=== PATIENT | female | born 1980 | race Caucasian/White ===

== ENCOUNTER 2017-05-29 16:38 | Inpatient (IN) | payer MEDICAID ==
[2017-05-29] MEDS ORDERED: Sodium Chloride 0.9% 1,000 ML IV ONE (17:10)
[2017-05-29 17:27] LABS: CHLORIDE 103 mmol/L (98-107); EOS % 0.7 % (0.0-4.0); HEMATOCRIT 15.4 % (34.0-47.0); LYMPH # 1.3 K/uL (1.0-4.3); LYMPH % 31.4 % (20.0-40.0); MEAN CELL VOLUME 100.5 fL (81.0-99.0); MEAN CORPUSCULAR HEMOGLOBIN 31.6 pg (27.0-31.0); MEAN CORPUSCULAR HGB CONC 31.4 g/dL (33.0-37.0); MEAN PLATELET VOLUME 9.3 fL (7.2-11.7); MONO # 0.6 K/uL (0.0-0.8); MONO % 13.7 % (0.0-10.0); NRBC % 0.1 % (0.0-2.0); POTASSIUM 3.2 mmol/L (3.6-5.2); RED CELL DISTRIBUTION WIDTH 22.4 % (11.5-14.5); SODIUM 139 mmol/L (132-148); WHITE BLOOD COUNT 4.1 K/uL (4.8-10.8)
[2017-05-29 17:29] LABS: BILIRUBIN,TOTAL 9.7 mg/dL (0.2-1.3); CARBON DIOXIDE 17 mmol/L (22-30); GFR AFRICAN-AMERICAN > 60
[2017-05-29 17:30] LABS: ALB/GLOB RATIO 0.5 (1.0-2.1); ALKALINE PHOSPHATASE 164 U/L (38-126); ALT/SGPT 42 U/L (9-52); AST/SGOT 83 U/L (14-36); CALCIUM 7.3 mg/dl (8.6-10.4); GLUCOSE,RANDOM 63 mg/dL (65-105); TOTAL PROTEIN 7.7 g/dL (6.3-8.3)
[2017-05-29 17:31] LABS: BLOOD UREA NITROGEN 2 mg/dL (7-17)
--- NOTE | 2017-05-29 17:54 | C.PDOC ---
History Of Present Illness 36 y/o female, with history of significant alcohol and tobacco use, sent to ED by [facility] (Dr. Ivory) today. Patient reports she was seen at PMD's office today with c/o leg swelling and yellowing of the eyes. Patient was sent in to ER for evaluation of jaundice. Denies abdominal pain, vaginal bleeding, blood in stool, blood in urine, hemoptysis, fever, chills, nausea, vomiting, or other associated symptoms. Time Seen by Provider: 05/29/17 16:52 Chief Complaint (Nursing): Lower Extremity Problem/Injury History Per: Patient History/Exam Limitations: no limitations Onset/Duration Of Symptoms: Days Current Symptoms Are (Timing): Still Present Recent travel outside of the [place]: No Past Medical History Reviewed: Historical Data, Nursing Documentation, Vital Signs Vital Signs: Last Vital Signs Temp 99.1 F 05/29/17 16:56 Pulse 118 H 05/29/17 16:56 Resp 16 05/29/17 16:56 BP 147/69 05/29/17 16:56 Pulse Ox 100 05/29/17 17:55 - Medical History PMH: Anemia - [facility] Procedures CLOSED ENDOSCOPIC BIOPSY OF LARGE INTESTINE (02/01/15) DETOXIFICATION SERVICES FOR SUBSTANCE ABUSE TREATMENT (08/24/16) GROUP [employer] AGENT FOR SUBSTANCE ABUSE TREATMENT, PSYCHOEDUCATION (08/24/16) PACKED CELL TRANSFUSION (02/01/15) TRANSFUSE NONAUT RED BLOOD CELLS IN PERIPH VEIN, PERC (05/02/16) Family History: States: Unknown Family Hx - Social History Hx Tobacco Use: Yes Hx Alcohol Use: Yes Hx Substance Use: No - Immunization History Hx Tetanus Toxoid Vaccination: No Hx Influenza Vaccination: No Hx Pneumococcal Vaccination: No Review Of Systems Except As Marked, All Systems Reviewed And Found Negative. Constitutional: Negative for: Fever, Chills Eyes: Positive for: Other (+jaundice) Cardiovascular: Positive for: Edema (bilateral lower extremities). Negative for : Chest Pain, Palpitations Respiratory: Negative for: Cough, Shortness of Breath, Hemoptysis, Wheezing Gastrointestinal: Negative for: Nausea, Vomiting, Abdominal Pain, Diarrhea, Hematemesis Genitourinary: Negative for: Hematuria Skin: Negative for: Rash Neurological: Negative for: Headache, Dizziness Physical Exam - Physical Exam Appears: Non-toxic, No Acute Distress Skin: Warm, Dry Head: Atraumatic, Normacephalic Eye(s): bilateral: PERRL, EOMI, Scleral Icterus Chest: Symmetrical Cardiovascular: Rhythm Regular (tachycardic), No Murmur Respiratory: Normal Breath Sounds, No Accessory Muscle Use, No Rales, No Rhonchi , No Wheezing Gastrointestinal/Abdominal: Soft, No Tenderness, No Guarding, No Rebound Back: Normal Inspection Extremity: Normal ROM, Pedal Edema (pitting, bilateral feet), No Calf Tenderness , Capillary Refill (< 2 sec.) Neurological/Psych: Oriented x3, Normal Speech, Normal Cognition ED Course And Treatment - Laboratory Results Result Diagrams: 05/29/17 17:14 05/29/17 17:14 O2 Sat by Pulse Oximetry: 100 (RA) Pulse Ox Interpretation: Normal Medical Decision Making Medical Decision Making: Plan: Type and screen, labs, fluids, reassess. 17:50 Hgb:4.8. Type and cross of 2 units PRBCS ordered. Patient consented. Discussed with PMD Dr. Ivory who reports anemia likely secondary to alcohol use. Agrees with plan of admission to med/sx Disposition - Disposition Disposition: HOSPITALIZED Disposition Time: 18:04 Condition: FAIR - Clinical Impression Clinical Impression: Anemia - Scribe Statement The provider has reviewed the documentation as recorded by the Danelle Vivas Provider Attestation: All medical record entries made by the Danelle were at my direction and personally dictated by me. I have reviewed the chart and agree that the record accurately reflects my personal performance of the history, physical exam, medical decision making, and the department course for this patient. I have also personally directed, reviewed, and agree with the discharge instructions and disposition.
[2017-05-29] MEDS ORDERED: Sodium Chloride 0.9% 1,000 ML ONE ×2 (18:00→19:34)
[2017-05-29 18:04] LABS: RBC URINE 9 /hpf (0-3); URINE BACTERIA MOD (<OCC); URINE BILIRUBIN 1+ (NEGATIVE); URINE BLOOD 1+ (NEGATIVE); URINE GLUCOSE (UA) 1+ mg/dL (Normal); URINE KETONE NEGATIVE (NEGATIVE); URINE LEUKOCYTE ESTERASE NEG Leu/uL (Negative); URINE PROTEIN NEGATIVE (NEGATIVE); WBC URINE 4 /hpf (0-5)
[2017-05-29 18:06] LABS: URINE COLOR YELLOW (YELLOW)
[2017-05-29] MEDS ORDERED: Potassium Chloride 20 mEq ER Tab PO STA (18:54)
[2017-05-29 19:02] LABS: INR 3.4
[2017-05-29] MEDS ORDERED: Potassium Chloride 20 mEq ER Tab PO ONE (19:28)
[2017-05-29] MEDS: Sodium Chloride 0.9% 1,000 ML IV SCH (19:55)
[2017-05-29 21:24] VITALS: RESP 20
--- NOTE | 2017-05-29 23:55 | CP.PCM.HP ---
History of Present Illness - History of Present Illness History of Present Illness: Chief complaint: leg swelling and weakness History present illness: 36 year-old female with h/o eoth and liver disease and anemia jaundice and withdrawl. Patient's mom who brought the patient was telling that she is drinking alcohol and at times she gets agitated and the patient came to the office for the evaluation of alcohol withdrawal. she recently in the hospital and did well and off etoh for few weeks but started to drink again she is drinking daily now c/o weakness no blood in stool no chest pain no palpitation. Past medical history: Liver disease, alcoholism, anemia, smoking Surgical history: None Personal history: Continues to drink alcohol. Denies any drugs, but smoking noted almost one pack per day Review of systems: Denies any headache, no visual symptoms, complaining of weakness, tiredness, chest tightness, sometimes shortness of breath, also complaining of some abdomen pain, constipation present, leg swelling also noted Family history: Father had heart disease, recently had a stent, mother is has anxiety, siblings 1 brother and one sister they are healthy, patient has 2 kids and they're healthy Social history: Patient is currently drinking alcohol almost to 2 cans of beer daily for 15 years, in the weekends she drinks even more, for the last 2 weeks that she's not drinking, she used to smoke, currently she smoking 2 cigarettes per day, 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 No urinary discomfort. Leg swelling noted. On examination: Patient is having conjunctival sclera icterus changes, anemia changes the looking conjunctiva, more face noted, bilateral pedal edema, abdominal swelling , abdominal wall swelling noted. Chest bilateral good air entry, CVS regular heart sound, 05/29/17 17:14 05/29/17 17:14 Assessment/recommendation: Assessment/condition: 35-year-old female now admitted with the severe anemia but no active bleeding noted at this time. coagulopathy present secondary to alcohol liver disease Low albumin secondary to liver disease. Patient will need a transfusion. Protonix. Alcoholic detoxification, psychotic evaluation, benzodiazepines. Patient's overall prognosis is poor. Spoke to the family in details. IV fluids with the vitamin thiamine and folate again patient was explained. We will watch DTs Present on Admission - Present on Admission Any Indicators Present on Admission: No History of DVT/PE: No History of Uncontrolled Diabetes: No Urinary Catheter: No Decubitus Ulcer Present: No Past Patient History - Infectious Disease Hx of Infectious Diseases: None - Past Medical History & Family History Past Medical History?: Yes - Past Social History Smoking Status: Light Smoker < 10 Cigarettes Daily - CARDIAC Hx Cardiac Disorders: No - PULMONARY Hx Respiratory Disorders: No - NEUROLOGICAL Hx Neurological Disorder: No - HEENT Hx HEENT Problems: No - RENAL Hx Chronic Kidney Disease: No - ENDOCRINE/METABOLIC Hx Endocrine Disorders: No - HEMATOLOGICAL/ONCOLOGICAL Hx Anemia: Yes Hx Cirrhosis: Yes - INTEGUMENTARY Hx Dermatological Problems: No Other/Comment: jaundice - MUSCULOSKELETAL/RHEUMATOLOGICAL Hx Falls: No - GASTROINTESTINAL Hx Gastrointestinal Disorders: No - GENITOURINARY/GYNECOLOGICAL Hx Genitourinary Disorders: No - PSYCHIATRIC Hx Substance Use: No - SURGICAL HISTORY Hx Surgeries: No - ANESTHESIA Hx Anesthesia: Yes Hx Anesthesia Reactions: No Hx Malignant Hyperthermia: No Has any member of the family had a problem w/ anesthesia?: No Meds Allergies/Adverse Reactions: Allergies Allergy/AdvReac Type Severity Reaction Status Date / Time No Known Allergies Allergy Verified 05/29/17 16:41 Results - Vital Signs Recent Vital Signs: Last Vital Signs Temp 98.6 F 05/29/17 22:30 Pulse 102 H 05/29/17 22:30 Resp 20 05/29/17 22:30 BP 130/75 05/29/17 22:30 Pulse Ox 100 05/29/17 22:30 - Labs Result Diagrams: 05/29/17 17:14 05/29/17 17:14 Labs: Laboratory Results - last 24 hr 05/29/17 18:34 Stool Occult Blood Negative
[2017-05-30] MEDS ORDERED: Thiamine 100 mg/ml Inj IV SCH (10:00)
[2017-05-30] MEDS: Pantoprazole 40 mg Susp UD PO SCH ×2 (10:57→17:00)
[2017-05-30 11:27] LABS: BASO % 0.8 % (0.0-2.0); EOS # 0.1 K/uL (0.0-0.7); EOS % 1.8 % (0.0-4.0); HEMATOCRIT 22.8 % (34.0-47.0); LYMPH % 28.7 % (20.0-40.0); MEAN CORPUSCULAR HEMOGLOBIN 31.2 pg (27.0-31.0); MEAN CORPUSCULAR HGB CONC 33.5 g/dL (33.0-37.0); MONO # 0.4 K/uL (0.0-0.8); MONO % 11.8 % (0.0-10.0); NRBC % 0.1 % (0.0-2.0); RED CELL DISTRIBUTION WIDTH 19.8 % (11.5-14.5); WHITE BLOOD COUNT 3.4 K/uL (4.8-10.8)
[2017-05-30 11:28] LABS: INR 3.6
[2017-05-30 11:31] LABS: CHLORIDE 104 mmol/L (98-107)
[2017-05-30 11:32] LABS: POTASSIUM 3.4 mmol/L (3.6-5.2); SODIUM 134 mmol/L (132-148)
[2017-05-30 11:34] LABS: ALB/GLOB RATIO 0.4 (1.0-2.1); ALKALINE PHOSPHATASE 124 U/L (38-126); ALT/SGPT 41 U/L (9-52); AST/SGOT 67 U/L (14-36); BILIRUBIN,TOTAL 9.9 mg/dL (0.2-1.3); BLOOD UREA NITROGEN 3 mg/dL (7-17); CARBON DIOXIDE 20 mmol/L (22-30); GFR AFRICAN-AMERICAN > 60; GLUCOSE,RANDOM 139 mg/dL (65-105); TOTAL PROTEIN 6.4 g/dL (6.3-8.3)
[2017-05-30 11:35] LABS: CALCIUM 6.7 mg/dl (8.6-10.4)
[2017-05-30] MEDS ORDERED: Iodixanol 320 MG/ML 100 ML BOTTLE IV ONE (12:51)
--- NOTE | 2017-05-30 13:11 | CP.PCM.CON ---
<Davina Lozano - Last Filed: 05/30/17 13:17> History of Present Illness - History of Present Illness History of Present Illness: GI Fellow PGY4 Consult Note This is a 36yF with a pmhx of alcohol abuse, cirrhosis, alcoholic hepatitis, anemia/pancytopenia requiring blood transfusion sent to the hospital by PCP for jaundice, anemia, and plan for detox. Pt has a significant hx of alcohol abuse, started drinking at age 15, reports drinking 2x24oz cans of beer every day with increased intake on weekends, denies hard liquor and last drink was two days ago. Pt has had prior admissions for detox but goes back to drinking as soon as she gets home. Pt also has received blood transfusion for her anemia with no active GI bleed. Pt had an Abdominal US 04/2016 showing cirrhosis but no mass lesions or hepatomegaly. Pt had EGD/Colonoscopy 2014: portal HTN, gastropaty, gastritis, hiatal hernia, no esophageal varies., sigmoid polyp, hemorrhoids. Pt denies any nausea, vomiting, hemetemesis, melena, hematochezia. Pt reports regular BM daily, denies any constipation. No hx of paracentesis or encephalopathy per the pt. ROS: A 12pt ROS was obtained and was negative except as above. PmHx: As stated in HPI PsHx: Denies FHx: Denies any cirrhosis or cancers SHx: Drinking alcohol everyday since the age of 15, 2x24oz cans of beer with increased intake on weekends, denies hard liquor, tobacco use since age 15 Past Patient History - Infectious Disease Hx of Infectious Diseases: None - Past Medical History & Family History Past Medical History?: Yes - Past Social History Smoking Status: Light Smoker < 10 Cigarettes Daily - CARDIAC Hx Cardiac Disorders: No - PULMONARY Hx Respiratory Disorders: No - NEUROLOGICAL Hx Neurological Disorder: No - HEENT Hx HEENT Problems: No - RENAL Hx Chronic Kidney Disease: No - ENDOCRINE/METABOLIC Hx Endocrine Disorders: No - HEMATOLOGICAL/ONCOLOGICAL Hx Anemia: Yes Hx Cirrhosis: Yes - INTEGUMENTARY Hx Dermatological Problems: No Other/Comment: jaundice - MUSCULOSKELETAL/RHEUMATOLOGICAL Hx Falls: No - GASTROINTESTINAL Hx Gastrointestinal Disorders: No - GENITOURINARY/GYNECOLOGICAL Hx Genitourinary Disorders: No - PSYCHIATRIC Hx Substance Use: No - SURGICAL HISTORY Hx Surgeries: No - ANESTHESIA Hx Anesthesia: Yes Hx Anesthesia Reactions: No Hx Malignant Hyperthermia: No Has any member of the family had a problem w/ anesthesia?: No Meds Allergies/Adverse Reactions: Allergies Allergy/AdvReac Type Severity Reaction Status Date / Time No Known Allergies Allergy Verified 05/29/17 16:41 - Medications Medications: Current Medications Chlordiazepoxide (Librium) 5 mg PO Q8 PRN PRN Reason: Anxiety Last Admin: 05/30/17 10:57 Dose: 5 mg Gabapentin (Neurontin) 100 mg PO TID [facility] Last Admin: 05/30/17 10:56 Dose: 100 mg Folic Acid 1 mg/ Sodium (Chloride) 100.2 mls @ 60 mls/hr IV DAILY [facility] Last Admin: 05/30/17 10:56 Dose: 60 mls/hr Sodium Chloride (Sodium Chloride 0.9%) 1,000 mls @ 50 mls/hr IV .Q20H [facility] Last Admin: 05/29/17 19:55 Dose: 50 mls/hr Lactulose (Enulose) 20 gm PO BID [facility] Last Admin: 05/30/17 10:57 Dose: 20 gm Pantoprazole Sodium (Protonix Susp) 40 mg PO 0600,1600 [facility] Last Admin: 05/30/17 10:57 Dose: 40 mg Phytonadione (Vitamin K Tab) 10 mg PO DAILY [facility] Stop: 06/01/17 10:01 Thiamine HCl (Vitamin B1 Inj) 100 mg IV DAILY [facility] Last Admin: 05/30/17 12:00 Dose: 100 mg Physical Exam - Constitutional Appears: No Acute Distress, Unkempt, Older Than Stated Age - Head Exam Head Exam: ATRAUMATIC, NORMAL INSPECTION, NORMOCEPHALIC - Eye Exam Eye Exam: EOMI, PERRL, Scleral icterus Pupil Exam: PERRL - ENT Exam ENT Exam: Mucous Membranes Moist, Normal Exam - Neck Exam Neck exam: Positive for: Normal Inspection - Respiratory Exam Respiratory Exam: Clear to Auscultation Bilateral, NORMAL BREATHING PATTERN - Cardiovascular Exam Cardiovascular Exam: RRR, +S1, +S2 - GI/Abdominal Exam GI & Abdominal Exam: Normal Bowel Sounds, Soft. absent: Distended, Organomegaly , Tenderness - Rectal Exam Rectal Exam: Deferred - Extremities Exam Extremities exam: Positive for: full ROM, normal inspection. Negative for: joint swelling, pedal edema - Back Exam Back exam: FULL ROM, NORMAL INSPECTION - Neurological Exam Neurological exam: Alert, Oriented x3 Additional comments: Slow mentation and response to questions - Psychiatric Exam Psychiatric exam: Normal Affect, Normal Mood Additional comments: Poor insight into condition - Skin Skin Exam: Dry, Intact, Warm Additional comments: Jaundice Results - Vital Signs Recent Vital Signs: Last Vital Signs Temp 98 F 05/30/17 08:51 Pulse 98 H 05/30/17 08:51 Resp 20 05/30/17 08:51 BP 156/74 H 05/30/17 08:51 Pulse Ox 100 05/30/17 08:51 - Labs Result Diagrams: 05/30/17 11:11 05/30/17 11:11 Labs: Laboratory Results - last 24 hr 05/29/17 05/30/17 05/30/17 18:34 11:11 11:11 WBC 3.4 L RBC 2.45 L Hgb 7.6 L D Hct 22.8 L MCV 93.0 D MCH 31.2 H MCHC 33.5 RDW 19.8 H Plt Count 70 L MPV 9.0 Neut % (Auto) 56.9 Lymph % (Auto) 28.7 [place] % (Auto) 11.8 H Eos % (Auto) 1.8 Baso % (Auto) 0.8 Neut # 1.9 Lymph # 1.0 [place] # 0.4 Eos # 0.1 Baso # 0.0 PT 42.8 H* INR 3.6 APTT 71 H D Sodium Potassium Chloride Carbon Dioxide Anion Gap BUN Creatinine Est GFR ( Amer) Est GFR (Non-Af Amer) Random Glucose Calcium Total Bilirubin AST ALT Alkaline Phosphatase Total Protein Albumin Globulin Albumin/Globulin Ratio Stool Occult Blood Negative 05/30/17 11:11 WBC RBC Hgb Hct MCV MCH MCHC RDW Plt Count MPV Neut % (Auto) Lymph % (Auto) [place] % (Auto) Eos % (Auto) Baso % (Auto) Neut # Lymph # [place] # Eos # Baso # PT INR APTT Sodium 134 Potassium 3.4 L Chloride 104 Carbon Dioxide 20 L Anion Gap 13 BUN 3 L Creatinine 0.4 L Est GFR ( Amer) > 60 Est GFR (Non-Af Amer) > 60 Random Glucose 139 H Calcium 6.7 L Total Bilirubin 9.9 H AST 67 H ALT 41 Alkaline Phosphatase 124 Total Protein 6.4 Albumin 1.8 L D Globulin 4.6 H Albumin/Globulin Ratio 0.4 L Stool Occult Blood Assessment & Plan - Assessment and Plan (Free Text) Assessment: This is a 36y F with hx of alcohol abuse pw jaundice, anemia, and detox. 1. Alcoholic Hepatitis- Discriminate Factor 136.7 2. Liver Cirrhosis- MELD 29 3. Anemia 4. Pancytopenia 5. Hepatic encephalopathy -Grade 1 6. Coagulopathy 7. Transaminitis/Hyperbilirubinemia 8. Alcohol Abuse Plan: -Pt with alcoholic hepatitis with elevated DF of 136.7, case discussed with Hepatology Fellow at [facility] and need for transfer to transplant center with increased mortality, risk of liver failure, and possible treatment with prednisolone and participate in a new Trial at the hospital. Pt was accepted at [facility] under Dr. Membreno. -Will order triple phase CT scan liver protocol for further evaluation for any hepatomegaly, cirrhosis, ascites, mass lesions -Needs endoscopic evaluation EGD for variceal screening outpt -Pancytopenia likely bone marrow suppression from chronic alcohol abuse, no active bleeding -Cirrhosis MELD 29, likely from alcohol abuse, will order complete work up with autoimmune, hepatitis, and iron studies -Coagulopathy due to cirrhosis, do not recommend any vit K since pt is not actively bleeding -Mild HE-lactose bid and titrate for 2 BM daily -Discussed importance of alcohol cessation with pt, monitor for DTs -Case discussed with and the need for pt transfer to [facility]. <Tee Harris - Last Filed: 05/30/17 15:43> Meds - Medications Medications: Current Medications Chlordiazepoxide (Librium) 5 mg PO Q8 PRN PRN Reason: Anxiety Last Admin: 05/30/17 10:57 Dose: 5 mg Gabapentin (Neurontin) 100 mg PO TID [facility] Last Admin: 05/30/17 14:05 Dose: 100 mg Folic Acid 1 mg/ Sodium (Chloride) 100.2 mls @ 60 mls/hr IV DAILY [facility] Last Admin: 05/30/17 10:56 Dose: 60 mls/hr Sodium Chloride (Sodium Chloride 0.9%) 1,000 mls @ 50 mls/hr IV .Q20H [facility] Last Admin: 05/29/17 19:55 Dose: 50 mls/hr Lactulose (Enulose) 20 gm PO BID [facility] Last Admin: 05/30/17 10:57 Dose: 20 gm Pantoprazole Sodium (Protonix Susp) 40 mg PO 0600,1600 [facility] Last Admin: 05/30/17 10:57 Dose: 40 mg Phytonadione (Vitamin K Tab) 10 mg PO DAILY [facility] Stop: 06/01/17 10:01 Thiamine HCl (Vitamin B1 Inj) 100 mg IV DAILY [facility] Last Admin: 05/30/17 12:00 Dose: 100 mg Results - Vital Signs Recent Vital Signs: Last Vital Signs Temp 98 F 05/30/17 08:51 Pulse 98 H 05/30/17 08:51 Resp 20 05/30/17 08:51 BP 156/74 H 05/30/17 08:51 Pulse Ox 100 05/30/17 08:51 - Labs Result Diagrams: 05/30/17 11:11 05/30/17 11:11 Labs: Laboratory Results - last 24 hr 05/29/17 05/30/17 05/30/17 18:34 11:11 11:11 WBC 3.4 L RBC 2.45 L Hgb 7.6 L D Hct 22.8 L MCV 93.0 D MCH 31.2 H MCHC 33.5 RDW 19.8 H Plt Count 70 L MPV 9.0 Neut % (Auto) 56.9 Lymph % (Auto) 28.7 [place] % (Auto) 11.8 H Eos % (Auto) 1.8 Baso % (Auto) 0.8 Neut # 1.9 Lymph # 1.0 [place] # 0.4 Eos # 0.1 Baso # 0.0 PT 42.8 H* INR 3.6 APTT 71 H D Sodium Potassium Chloride Carbon Dioxide Anion Gap BUN Creatinine Est GFR ( Amer) Est GFR (Non-Af Amer) Random Glucose Calcium Total Bilirubin Direct Bilirubin AST ALT Alkaline Phosphatase Total Protein Albumin Globulin Albumin/Globulin Ratio Stool Occult Blood Negative IgM 05/30/17 05/30/17 05/30/17 11:11 14:29 14:29 WBC RBC Hgb Hct MCV MCH MCHC RDW Plt Count MPV Neut % (Auto) Lymph % (Auto) [place] % (Auto) Eos % (Auto) Baso % (Auto) Neut # Lymph # [place] # Eos # Baso # PT INR APTT Sodium 134 Potassium 3.4 L Chloride 104 Carbon Dioxide 20 L Anion Gap 13 BUN 3 L Creatinine 0.4 L Est GFR ( Amer) > 60 Est GFR (Non-Af Amer) > 60 Random Glucose 139 H Calcium 6.7 L Total Bilirubin 9.9 H 10.9 H Direct Bilirubin 4.5 H AST 67 H ALT 41 Alkaline Phosphatase 124 Total Protein 6.4 Albumin 1.8 L D Globulin 4.6 H Albumin/Globulin Ratio 0.4 L Stool Occult Blood IgM 192.3 Attending/Attestation - Attestation I have personally seen and examined this patient.: Yes I have fully participated in the care of the patient.: Yes I have reviewed all pertinent clinical information: Yes Notes (Text): 05/30/17 15:39 36 year old female with history of alcohol abuse admitted with jaundice 1. Alcoholic Hepatitis 2. Anemia Plan: -considering markedly elevated Madd[place] / MELD score, high risk of mortality short term, as well as young age of the patient, would recommend evaluation at transplant center, for consideration of trials or possibly transplant -await transfer to [facility] -diet as tolerated in the meantime -would recommend triple phase CT in the meantime, although wouldn't hold transfer for this -strict etoh cessation -start lactulose for G1 encephalopathy -no need to correct INR in the absence of bleeding -recommend transfusion for severe anemia -will follow
--- NOTE | 2017-05-30 13:14 | PCM.PSYCH ---
Initial Psychiatric Evaluation - Initial Psychiatric Evaluation Type of Admission: Voluntary Legal Status: Capacity Chief Complaint (in patient's own words): I was drinking History of Present Illness and Precipitating Events: Patient is a 36 year old, , unemployed female with a history of alcohol use disorder admitted for treatment of her alcohol use, cirrhosis and alcoholic hepatitis. Patient appears slightly jaundiced and fatigued. She denies suicidal ideases, hallucinations and voices. Patient started drinking at the age of 15 years and drinks two 24oz. bottles of beer daily. She reports that the only time she was sober was when she was . Patient smokes 4-5 cigarettes daily and requests a patch. Patient reports poor sleep, getting 2-3 hours each night. Patient reports a good appetite. Psych hx: hospitalized last year at [facility] for detox in 2016 and was sober for 3 weeks after before relapsing. Patient doesn't have a psychiatrist outside the hospital. Family psych hx: denies psychiatric issues or drug use Medical hx: anemia, cirrhosis, alcoholic hepatitis Social hx: , has two children (ages 13 and 80 years old), never has been employed and lives alone. Patient denies traumatic life events and denies legal issues. Current Medications: Active Medications Generic Name Dose Route Start Last Admin Trade Name Freq PRN Reason Stop Dose Admin Chlordiazepoxide 5 mg 05/29/17 19:03 05/30/17 10:57 Librium PO 5 mg Q8 PRN Administration Anxiety Gabapentin 100 mg 05/30/17 10:00 05/30/17 10:56 Neurontin PO 100 mg TID [facility] Administration Folic Acid 1 mg/ Sodium 100.2 mls @ 60 mls/hr 05/30/17 10:00 05/30/17 10:56 Chloride IV 60 mls/hr DAILY [facility] Administration Sodium Chloride 1,000 mls @ 50 mls/hr 05/29/17 19:30 05/29/17 19:55 Sodium Chloride 0.9% IV 50 mls/hr .Q20H [facility] Administration Lactulose 20 gm 05/30/17 10:00 05/30/17 10:57 Enulose PO 20 gm BID [facility] Administration Pantoprazole Sodium 40 mg 05/30/17 06:00 05/30/17 10:57 Protonix Susp PO 40 mg 0600,1600 [facility] Administration Phytonadione 10 mg 05/30/17 23:53 Vitamin K Tab PO 06/01/17 10:01 DAILY [facility] Thiamine HCl 100 mg 05/30/17 10:00 05/30/17 12:00 Vitamin B1 Inj IV 100 mg DAILY [facility] Administration Past Psychiatric History - Past Psychiatric History Previous Treatment History: None Pertinent Medical Hx (Current Medical&Sleep Prob, Allergies): Allergies Allergy/AdvReac Type Severity Reaction Status Date / Time No Known Allergies Allergy Verified 05/29/17 16:41 Gabapentin [Neurontin] 100 mg PO TID #0 cap 05/09/16 Mirtazapine [Remeron] 15 mg PO HS #0 tab 05/09/16 Pantoprazole [Protonix EC Tab] 40 mg PO Q12H #0 ect 05/09/16 Nicotine [Nicoderm Cq] 1 each TD DAILY #30 [id number] 09/05/16 Review of Systems - Review of Systems All systems: reviewed and no additional remarkable complaints except - Psychiatric Psychiatric: As Per HPI, Abnormal Sleep Pattern, Anxiety, Behavioral Changes, Irritability Mental Status Examination - Personal Presentation Personal Presentation: Looks stated age - Affect Affect: Constricted - Motor Activity Motor Activity: Calm - Reliability in Providing Information Reliability in Providing Information: Good - Speech Speech: Organized - Mood Mood: Anxious - Formal Thought Process Formal Thought Process: No Impairment - Obsessions/Compulsions Obsessions: No Compulsions: No - Cognitive Functions Orientation: Person, Place, Situation, Time Sensorium: Alert Attention/Concentration: Attentive Abstract Thinking: [place] Estimate of Intelligence: Below average Judgement: Imparied, as evidence by: Poor judgement, Imparied, as evidence by: Lack of insight into illness - Risk Risk: Withdrawal, Diminished functioning - Strength & Assets Inventory Strength & Assets Inventory: Life experience - Limitations Limitations: Living alone DSM 5 DX - DSM 5 DSM 5 Diagnosis: Alcohol use disorder severe Alcohol Withdrawal - Recommended/Plan of Treatment Treatment Recommendations and Plan of Treatment: Alcohol use disorder severe CBT Psychoeducation Supportive therapy, individual therapy Use OK for abstinence Alcohol withdrawal uncomplicated CBT Psychoeducation Supportive therapy, individual therapy Librium when necessary Folic acid/thiamine/multivitamin Projected ELOS: 4-6 days - Smoking Cessation Smoking Cessation Initiated: No
--- NOTE | 2017-05-30 14:11 | CP.PCM.PN ---
Subjective - Date & Time of Evaluation Date of Evaluation: 05/30/17 Time of Evaluation: 14:11 - Subjective Subjective: PT SEEN AND EVAL'D BY GI TEAM THIS MORNING. PER DR. ANTONIO, ARRANGEMENTS FOR TRANSFER TO [facility] FOR FURTHER TESTS AND TX HAVE BEEN MADE. DR. STEPHENS IS THE APPECPTING MD. DR. LALA AWARE OF PLAN AND IN AGREEMENT. PT SIGNED EMTALA WITH INSURANCE CLAIMS SPECIALIST AND UNDERSTANDS RISKS VS BENEFITS OF TRANSFER. [facility] RECOMMENDED 2/ 2 RISK OF DT'S, SEIZURE, HYPERTENSIVE CRISIS 2/2 ETOH WITHDRAWALS. [facility] TO NOTIFY NURSING STAFF ONCE BED IS AVAILABLE FOR THE PT. IF PT LEAVES AFTER INSURANCE CLAIMS SPECIALIST SHIFT AND IF DR. LALA UNAVAILBLE, [facility] MARTIN CAN COMPLETE THE D/C PORTION OF THE TRANSFER FORM. WILL F/U IN THE AM IF THE PT IS STILL HERE. NO FURTHER ORDERS. Objective - Vital Signs/Intake and Output Vital Signs (last 24 hours): Temp Pulse Resp BP Pulse Ox 98 F 98 H 20 156/74 H 100 05/30/17 08:51 05/30/17 08:51 05/30/17 08:51 05/30/17 08:51 05/30/17 08:51 - Medications Medications: Current Medications Chlordiazepoxide (Librium) 5 mg PO Q8 PRN PRN Reason: Anxiety Last Admin: 05/30/17 10:57 Dose: 5 mg Gabapentin (Neurontin) 100 mg PO TID [facility] Last Admin: 05/30/17 14:05 Dose: 100 mg Folic Acid 1 mg/ Sodium (Chloride) 100.2 mls @ 60 mls/hr IV DAILY [facility] Last Admin: 05/30/17 10:56 Dose: 60 mls/hr Sodium Chloride (Sodium Chloride 0.9%) 1,000 mls @ 50 mls/hr IV .Q20H [facility] Last Admin: 05/29/17 19:55 Dose: 50 mls/hr Lactulose (Enulose) 20 gm PO BID [facility] Last Admin: 05/30/17 10:57 Dose: 20 gm Pantoprazole Sodium (Protonix Susp) 40 mg PO 0600,1600 [facility] Last Admin: 05/30/17 10:57 Dose: 40 mg Phytonadione (Vitamin K Tab) 10 mg PO DAILY [facility] Stop: 06/01/17 10:01 Thiamine HCl (Vitamin B1 Inj) 100 mg IV DAILY [facility] Last Admin: 05/30/17 12:00 Dose: 100 mg - Labs Labs: 05/30/17 11:11 05/30/17 11:11 PT 42.8 SECONDS (9.7-12.2) H* 05/30/17 11:11 INR 3.6 05/30/17 11:11 APTT 71 SECONDS (21-34) H D 05/30/17 11:11
--- NOTE | 2017-05-30 14:51 | CT ---
Liver protocol triple phase CT Indication: Cirrhosis Technique: Contiguous axial images of the abdomen without & with IV contrast utilizing liver protocol. Coronal and Sagittal reformats generated and reviewed. This CT exam was performed using 1 or more of the falling dose reduction techniques: Automated exposure control, adjustment of the MAA and/or kV according to patient size, and/or use of iterative reconstruction technique. Contrast: 100 mL Visipaque. Oral contrast was not administered. Radiation dose: Total exam DLP = 664.56 MGy-cm. Comparison: Abdominal ultrasound performed 05/03/16 Findings: Small bilateral pleural effusions and associated consolidations. No visible pneumothorax. Small hiatal hernia/ distal esophageal wall thickening. Nodular hepatic contour. Heterogeneous hepatic parenchyma. No focal hepatic mass identified. Splenomegaly. Gallbladder wall thickening/edema. No calcified gallstones evident. The kidneys, pancreas, and adrenal glands appear unremarkable. Extensive large varices including retroperitoneal varices which extend into the pelvis. The stomach is nondistended. The included upper abdominal bowel loops appear within normal limits of caliber without evidence of intestinal obstruction. There is no definite free air. No acute osseous abnormality is detected. Impression: Small bilateral pleural effusions and associated consolidations. Small hiatal hernia/distal esophageal wall thickening. Nodular hepatic contour and heterogeneous hepatic parenchyma consistent with cirrhosis. No focal hepatic mass identified. Splenomegaly. Gallbladder wall thickening/edema. No calcified gallstones evident. Correlate clinically for possibility of cholecystitis. Right upper quadrant ultrasound may be considered if indicated. Extensive large varices including retroperitoneal varices which extend into the pelvis.
[2017-05-30 15:21] LABS: BILIRUBIN,DIRECT 4.5 mg/dL (0.0-0.4); BILIRUBIN,TOTAL 10.9 mg/dL (0.2-1.3)
[2017-05-30 15:33] LABS: IMMUNOGLOBULIN M 192.3 mg/dL (40.0-230.0)
[2017-05-30 15:53] LABS: IMMUNOGLOBULIN A 1256.4 mg/dL (70.0-400.0)
[2017-05-30 15:58] LABS: IMMUNOGLOBULIN G 2789.9 mg/dL (700.0-1600.0)
[2017-05-30] MEDS: Sodium Chloride 0.9% 1,000 ML IV SCH ×2 (16:29→18:28)
[2017-05-31] MEDS: Pantoprazole 40 mg Susp UD PO SCH ×2 (05:48→16:00)
--- NOTE | 2017-05-31 06:47 | CP.PCM.PN ---
Subjective - Date & Time of Evaluation Date of Evaluation: 05/30/17 Time of Evaluation: 06:47 - Subjective Subjective: This is a blood transfusion. Currently doing well. Leg swelling noted. Tremor noted. Vital signs stable. Chest good air entry bilaterally regular heart sound nontender abdomen Assessment and a condition: 36-year-old female with history of alcoholic hepatitis, or colic liver disease and the possible liver cirrhosis anemia and GA bleed. Currently doing okay. Monitor the hemoglobin. GI consult and will follow the patient Objective - Vital Signs/Intake and Output Vital Signs (last 24 hours): Temp Pulse Resp BP Pulse Ox 99.3 F 110 H 20 129/69 98 05/31/17 00:02 05/31/17 00:02 05/31/17 00:02 05/31/17 00:02 05/31/17 00:02 Intake and Output: 05/30/17 05/31/17 18:59 06:59 Intake Total 700 Balance 700 - Medications Medications: Current Medications Chlordiazepoxide (Librium) 5 mg PO Q8 PRN PRN Reason: Anxiety Last Admin: 05/31/17 05:48 Dose: 5 mg Folic Acid (Folic Acid) 1 mg PO DAILY [facility] Gabapentin (Neurontin) 100 mg PO TID [facility] Last Admin: 05/30/17 17:05 Dose: 100 mg Folic Acid 1 mg/ Sodium (Chloride) 100.2 mls @ 60 mls/hr IV DAILY [facility] Last Admin: 05/30/17 10:56 Dose: 60 mls/hr Sodium Chloride (Sodium Chloride 0.9%) 1,000 mls @ 50 mls/hr IV .Q20H [facility] Last Admin: 05/30/17 18:28 Dose: 50 mls/hr Lactulose (Enulose) 20 gm PO BID [facility] Last Admin: 05/30/17 17:05 Dose: 20 gm Multivitamins (Hexavitamin) 1 tab PO DAILY [facility] Pantoprazole Sodium (Protonix Susp) 40 mg PO 0600,1600 [facility] Last Admin: 05/31/17 05:48 Dose: 40 mg Phytonadione (Vitamin K Tab) 10 mg PO DAILY [facility] Stop: 06/01/17 10:01 Last Admin: 05/31/17 00:22 Dose: 10 mg Thiamine HCl (Vitamin B1 Tab) 100 mg PO DAILY [facility] - Labs Labs: 05/30/17 11:11 05/30/17 11:11 PT 42.8 SECONDS (9.7-12.2) H* 05/30/17 11:11 INR 3.6 05/30/17 11:11 APTT 71 SECONDS (21-34) H D 05/30/17 11:11
[2017-05-31 08:46] LABS: HEMATOCRIT 22.8 % (34.0-47.0); MEAN CELL VOLUME 93.6 fL (81.0-99.0); MEAN CORPUSCULAR HEMOGLOBIN 31.4 pg (27.0-31.0); MEAN CORPUSCULAR HGB CONC 33.6 g/dL (33.0-37.0); MEAN PLATELET VOLUME 8.4 fL (7.2-11.7); RED CELL DISTRIBUTION WIDTH 20.9 % (11.5-14.5); WHITE BLOOD COUNT 4.6 K/uL (4.8-10.8)
[2017-05-31 08:55] LABS: CHLORIDE 104 mmol/L (98-107); SODIUM 137 mmol/L (132-148)
[2017-05-31 08:57] LABS: ALB/GLOB RATIO 0.4 (1.0-2.1); AST/SGOT 56 U/L (14-36); BILIRUBIN,DIRECT 3.3 mg/dL (0.0-0.4); BILIRUBIN,TOTAL 7.4 mg/dL (0.2-1.3); CARBON DIOXIDE 22 mmol/L (22-30); GFR AFRICAN-AMERICAN > 60; TOTAL PROTEIN 6.2 g/dL (6.3-8.3)
[2017-05-31 08:58] LABS: ALKALINE PHOSPHATASE 153 U/L (38-126); ALT/SGPT 38 U/L (9-52); CALCIUM 6.6 mg/dl (8.6-10.4); GLUCOSE,RANDOM 109 mg/dL (65-105)
[2017-05-31 08:59] LABS: BLOOD UREA NITROGEN 2 mg/dL (7-17)
[2017-05-31] MEDS: Multiple Vitamins Tab PO SCH (09:45)
[2017-05-31 11:53] LABS: BASO # 0.1 K/uL (0.0-0.2); BASO % 1.5 % (0.0-2.0); EOS # 0.1 K/uL (0.0-0.7); EOS % 1.9 % (0.0-4.0); HEMATOCRIT 22.3 % (34.0-47.0); LYMPH # 1.3 K/uL (1.0-4.3); LYMPH % 29.7 % (20.0-40.0); MEAN CELL VOLUME 92.7 fL (81.0-99.0); MEAN CORPUSCULAR HEMOGLOBIN 31.2 pg (27.0-31.0); MEAN CORPUSCULAR HGB CONC 33.6 g/dL (33.0-37.0); MEAN PLATELET VOLUME 8.2 fL (7.2-11.7); MONO # 0.6 K/uL (0.0-0.8); MONO % 12.4 % (0.0-10.0); NRBC % 0.1 % (0.0-2.0); RED CELL DISTRIBUTION WIDTH 20.3 % (11.5-14.5); WHITE BLOOD COUNT 4.5 K/uL (4.8-10.8)
--- NOTE | 2017-05-31 12:58 | CP.PCM.PN ---
<Davina Lozano - Last Filed: 05/31/17 12:54> Subjective - Date & Time of Evaluation Date of Evaluation: 05/31/17 Time of Evaluation: 06:50 - Subjective Subjective: GI Fellow PGY4 Progress Note Pt seen and evaluated at beside, no acute events overnight, no active withdrawal. Pt reports feeling fine with no abdominal pain, nausea or vomiting. Pt eating food and had two BM yesterday after lactulose. Pt not transferred to [facility] due to bed availability. ROS: A 12pt ROS was obtained and was negative except as above. Objective - Vital Signs/Intake and Output Vital Signs (last 24 hours): Temp Pulse Resp BP Pulse Ox 99 F 129 H 20 151/91 H 98 05/31/17 08:36 05/31/17 08:36 05/31/17 08:36 05/31/17 08:36 05/31/17 08:36 Intake and Output: 05/31/17 05/31/17 06:59 18:59 Intake Total 700 Balance 700 - Medications Medications: Current Medications Chlordiazepoxide (Librium) 5 mg PO Q8 PRN PRN Reason: Anxiety Last Admin: 05/31/17 05:48 Dose: 5 mg Folic Acid (Folic Acid) 1 mg PO DAILY [facility] Last Admin: 05/31/17 09:45 Dose: 1 mg Gabapentin (Neurontin) 100 mg PO TID [facility] Last Admin: 05/31/17 09:45 Dose: 100 mg Folic Acid 1 mg/ Sodium (Chloride) 100.2 mls @ 60 mls/hr IV DAILY [facility] Last Admin: 05/30/17 10:56 Dose: 60 mls/hr Sodium Chloride (Sodium Chloride 0.9%) 1,000 mls @ 50 mls/hr IV .Q20H [facility] Last Admin: 05/30/17 18:28 Dose: 50 mls/hr Potassium Chloride (Potassium Chloride 20 Meq/100 Ml) 20 meq in 100 mls @ 50 mls/hr IVPB Q2 [facility] Stop: 05/31/17 19:59 Lactulose (Enulose) 20 gm PO BID [facility] Last Admin: 05/31/17 09:45 Dose: 20 gm Multivitamins (Hexavitamin) 1 tab PO DAILY [facility] Last Admin: 05/31/17 09:45 Dose: 1 tab Pantoprazole Sodium (Protonix Susp) 40 mg PO 0600,1600 [facility] Last Admin: 05/31/17 05:48 Dose: 40 mg Phytonadione (Vitamin K Tab) 10 mg PO DAILY [facility] Stop: 06/01/17 10:01 Last Admin: 05/31/17 09:46 Dose: 10 mg Thiamine HCl (Vitamin B1 Tab) 100 mg PO DAILY [facility] Last Admin: 05/31/17 09:45 Dose: 100 mg - Labs Labs: 05/31/17 11:45 05/31/17 08:32 PT 42.8 SECONDS (9.7-12.2) H* 05/30/17 11:11 INR 3.6 05/30/17 11:11 APTT 71 SECONDS (21-34) H D 05/30/17 11:11 - Constitutional Appears: No Acute Distress, Older Than Stated Age, Chronically Ill - Head Exam Head Exam: ATRAUMATIC, NORMAL INSPECTION, NORMOCEPHALIC - Eye Exam Eye Exam: EOMI, PERRL, Scleral icterus Pupil Exam: PERRL - ENT Exam ENT Exam: Mucous Membranes Moist, Normal Exam - Neck Exam Neck Exam: Full ROM, Normal Inspection - Respiratory Exam Respiratory Exam: Clear to Ausculation Bilateral, NORMAL BREATHING PATTERN - Cardiovascular Exam Cardiovascular Exam: RRR, +S1, +S2 - GI/Abdominal Exam GI & Abdominal Exam: Soft, Normal Bowel Sounds. absent: Distended, Tenderness, Organomegaly - Rectal Exam Rectal Exam: Deferred - Back Exam Back Exam: NORMAL INSPECTION - Neurological Exam Neurological Exam: Alert, Awake, Oriented x3 Additional comments: slow mentation and speech - Psychiatric Exam Psychiatric exam: Flat Affect, Normal Mood Additional comments: poor insight into medical condition - Skin Skin Exam: Dry, Intact, Warm Additional comments: jaundice Assessment and Plan - Assessment and Plan (Free Text) Assessment: This is a 36y F with hx of alcohol abuse pw jaundice, anemia, and detox. 1. Alcoholic Hepatitis- Discriminate Factor 150 2. Liver Cirrhosis- MELD 31 3. Anemia 4. Pancytopenia 5. Hepatic encephalopathy -Grade 1 6. Coagulopathy 7. Transaminitis/Hyperbilirubinemia 8. Alcohol Abuse Plan: Plan: -Pt with alcoholic hepatitis with elevated DF of 150 -Pt was accepted at [facility] under Dr. Membreno to receive treatment for alcoholic hepatitis-waiting for bed -If pt not transferred today will start treatment with prednisolone -Ordered blood and urine cultures to r/o infection -Triple phase CT scan liver protocol-signs of cirrhosis, large varices but no ascites or mass lesions -Needs endoscopic evaluation EGD for variceal screening outpt -Pancytopenia likely bone marrow suppression from chronic alcohol abuse, no active bleeding -Cirrhosis MELD 31, likely from alcohol abuse, will order complete work up with autoimmune and iron studies pending, hepatitis negative -Coagulopathy due to cirrhosis, do not recommend any vit K since pt is not actively bleeding -Mild HE-lactose bid and titrate for 2 BM daily -Discussed importance of alcohol cessation with pt, monitor for DTs -Case discussed with and the need for pt transfer to [facility] <Noe Rojas - Last Filed: 05/31/17 13:17> Objective - Vital Signs/Intake and Output Vital Signs (last 24 hours): Temp Pulse Resp BP Pulse Ox 99 F 129 H 20 151/91 H 98 05/31/17 08:36 05/31/17 08:36 05/31/17 08:36 05/31/17 08:36 05/31/17 08:36 Intake and Output: 05/31/17 05/31/17 06:59 18:59 Intake Total 700 Balance 700 - Medications Medications: Current Medications Chlordiazepoxide (Librium) 5 mg PO Q8 PRN PRN Reason: Anxiety Last Admin: 05/31/17 05:48 Dose: 5 mg Folic Acid (Folic Acid) 1 mg PO DAILY [facility] Last Admin: 05/31/17 09:45 Dose: 1 mg Gabapentin (Neurontin) 100 mg PO TID [facility] Last Admin: 05/31/17 13:07 Dose: 100 mg Sodium Chloride (Sodium Chloride 0.9%) 1,000 mls @ 50 mls/hr IV .Q20H [facility] Last Admin: 05/31/17 13:10 Dose: Not Given Potassium Chloride (Potassium Chloride 20 Meq/100 Ml) 20 meq in 100 mls @ 50 mls/hr IVPB Q2 [facility] Stop: 05/31/17 19:59 Last Admin: 05/31/17 13:08 Dose: 50 mls/hr Lactulose (Enulose) 20 gm PO BID [facility] Last Admin: 05/31/17 09:45 Dose: 20 gm Multivitamins (Hexavitamin) 1 tab PO DAILY [facility] Last Admin: 05/31/17 09:45 Dose: 1 tab Pantoprazole Sodium (Protonix Susp) 40 mg PO 0600,1600 [facility] Last Admin: 05/31/17 05:48 Dose: 40 mg Phytonadione (Vitamin K Tab) 10 mg PO DAILY [facility] Stop: 06/01/17 10:01 Last Admin: 05/31/17 09:46 Dose: 10 mg Thiamine HCl (Vitamin B1 Tab) 100 mg PO DAILY [facility] Last Admin: 05/31/17 09:45 Dose: 100 mg - Labs Labs: 05/31/17 11:45 05/31/17 08:32 PT 42.8 SECONDS (9.7-12.2) H* 05/30/17 11:11 INR 3.6 05/30/17 11:11 APTT 71 SECONDS (21-34) H D 05/30/17 11:11 Attending/Attestation - Attestation I have personally seen and examined this patient.: Yes I have fully participated in the care of the patient.: Yes I have reviewed all pertinent clinical information, including history, physical exam and plan: Yes Notes (Text): 05/31/17 13:12 I have seen and examined patient with GI fellow. No acute events overnight, she is seen resting in bed comfortably watching tv. She denies abdominal pain, nausea, vomiting, diarrhea, fever/chills. Tolerating PO diet without difficulty. She had a normal bowel movement yesterday, none thus far today. Review of vitals from today shows tachycardia and elevated BP. ETOH decompensated cirrhosis with MELD 31 Acute ETOH hepatitis with DF significantly elevated Anemia, pancytopenia Altered mental status, hepatic encephalopathy - Low sodium diet as tolerated - H/H stable, s/p PRBC transfusion, continue to monitor. No overt bleeding noted. - Given acute clinical presentation with high mortality risk, she would benefit from steroid therapy, however will hold off on therapy as this may disqualify her from involvement in clinical trials at [facility]. Awaiting bed availability for patient transfer. - LFTs stable, awaiting autoimmune panel - Check daily INR, creatinine - Continue with lactulose for prevention of HE - ETOH cessation counseling, overall patient prognosis is poor
[2017-05-31] MEDS: Sodium Chloride 0.9% 1,000 ML IV SCH (13:10)
--- NOTE | 2017-05-31 17:39 | CP.PCM.PN ---
Subjective - Date & Time of Evaluation Date of Evaluation: 05/31/17 Time of Evaluation: 17:38 - Subjective Subjective: PT STILL PENDING TRANSFER TO [facility]. REMAINS STABLE. SEEN BY GI TODAY. PER GI , IF PT IS NOT TRANSFERRED BY TOMORROW THEY MAY START THE PT ON A PREDNISONE REGIMEN. DISCUSSED WITH PT PLAN AND SHE IS IN AGREEMENT. AM LABS ALREADY ORDERED BY GI TEAM. NO FURTHER ORDERS AT THIS TIME. Objective - Vital Signs/Intake and Output Vital Signs (last 24 hours): Temp Pulse Resp BP Pulse Ox 98.6 F 104 H 20 149/87 100 05/31/17 15:00 05/31/17 15:00 05/31/17 15:00 05/31/17 15:00 05/31/17 15:00 Intake and Output: 05/31/17 05/31/17 06:59 18:59 Intake Total 700 1300 Balance 700 1300 - Medications Medications: Current Medications Chlordiazepoxide (Librium) 5 mg PO Q8 PRN PRN Reason: Anxiety Last Admin: 05/31/17 05:48 Dose: 5 mg Folic Acid (Folic Acid) 1 mg PO DAILY [facility] Last Admin: 05/31/17 09:45 Dose: 1 mg Gabapentin (Neurontin) 100 mg PO TID [facility] Last Admin: 05/31/17 17:09 Dose: 100 mg Sodium Chloride (Sodium Chloride 0.9%) 1,000 mls @ 50 mls/hr IV .Q20H [facility] Last Admin: 05/31/17 13:10 Dose: Not Given Potassium Chloride (Potassium Chloride 20 Meq/100 Ml) 20 meq in 100 mls @ 50 mls/hr IVPB Q2 [facility] Stop: 05/31/17 19:59 Last Admin: 05/31/17 16:00 Dose: 50 mls/hr Lactulose (Enulose) 20 gm PO BID [facility] Last Admin: 05/31/17 17:09 Dose: 20 gm Multivitamins (Hexavitamin) 1 tab PO DAILY [facility] Last Admin: 05/31/17 09:45 Dose: 1 tab Pantoprazole Sodium (Protonix Susp) 40 mg PO 0600,1600 [facility] Last Admin: 05/31/17 16:00 Dose: 40 mg Phytonadione (Vitamin K Tab) 10 mg PO DAILY [facility] Stop: 06/01/17 10:01 Last Admin: 05/31/17 09:46 Dose: 10 mg Thiamine HCl (Vitamin B1 Tab) 100 mg PO DAILY [facility] Last Admin: 05/31/17 09:45 Dose: 100 mg - Labs Labs: 05/31/17 11:45 05/31/17 08:32 PT 42.8 SECONDS (9.7-12.2) H* 05/30/17 11:11 INR 3.6 05/30/17 11:11 APTT 71 SECONDS (21-34) H D 05/30/17 11:11
[2017-06-01] MEDS: Pantoprazole 40 mg Susp UD PO SCH ×2 (06:23→16:02)
[2017-06-01] MEDS: Sodium Chloride 0.9% 1,000 ML IV SCH (07:58)
[2017-06-01 08:21] LABS: HEMATOCRIT 23.9 % (34.0-47.0); MEAN CELL VOLUME 93.9 fL (81.0-99.0); MEAN CORPUSCULAR HEMOGLOBIN 30.9 pg (27.0-31.0); MEAN CORPUSCULAR HGB CONC 32.9 g/dL (33.0-37.0); MEAN PLATELET VOLUME 8.9 fL (7.2-11.7); RED CELL DISTRIBUTION WIDTH 21.2 % (11.5-14.5); WHITE BLOOD COUNT 3.6 K/uL (4.8-10.8)
[2017-06-01 08:40] LABS: CHLORIDE 102 mmol/L (98-107); POTASSIUM 3.5 mmol/L (3.6-5.2); SODIUM 134 mmol/L (132-148)
[2017-06-01 08:42] LABS: GFR AFRICAN-AMERICAN > 60
[2017-06-01 08:43] LABS: ALB/GLOB RATIO 0.4 (1.0-2.1); ALKALINE PHOSPHATASE 143 U/L (38-126); ALT/SGPT 41 U/L (9-52); AST/SGOT 49 U/L (14-36); BILIRUBIN,TOTAL 7.5 mg/dL (0.2-1.3); BLOOD UREA NITROGEN 3 mg/dL (7-17); CARBON DIOXIDE 23 mmol/L (22-30); GLUCOSE,RANDOM 85 mg/dL (65-105); TOTAL PROTEIN 6.1 g/dL (6.3-8.3)
[2017-06-01 08:44] LABS: CALCIUM 6.7 mg/dl (8.6-10.4)
--- NOTE | 2017-06-01 10:39 | CP.PCM.PN ---
<Bal Wahl - Last Filed: 06/01/17 10:34> Subjective - Date & Time of Evaluation Date of Evaluation: 06/01/17 Time of Evaluation: 06:40 - Subjective Subjective: PGY5 GI Fellow Progress Note Patient seen and examined bedside this morning. The patient denies any complaints at this time and is in no distress. She is resting comfortably during examination. Tachycardic overnight. 12 system ROS performed and negative except where stated. Objective - Vital Signs/Intake and Output Vital Signs (last 24 hours): Temp Pulse Resp BP Pulse Ox 98.9 F 110 H 20 129/73 98 06/01/17 00:08 06/01/17 00:08 06/01/17 00:08 06/01/17 00:08 06/01/17 00:08 Intake and Output: 06/01/17 06/01/17 06:59 18:59 Intake Total 300 Balance 300 - Medications Medications: Current Medications Chlordiazepoxide (Librium) 5 mg PO Q8 PRN PRN Reason: Anxiety Last Admin: 05/31/17 05:48 Dose: 5 mg Folic Acid (Folic Acid) 1 mg PO DAILY [facility] Last Admin: 05/31/17 09:45 Dose: 1 mg Gabapentin (Neurontin) 100 mg PO TID [facility] Last Admin: 05/31/17 17:09 Dose: 100 mg Sodium Chloride (Sodium Chloride 0.9%) 1,000 mls @ 50 mls/hr IV .Q20H [facility] Last Admin: 06/01/17 07:58 Dose: Not Given Lactulose (Enulose) 20 gm PO BID [facility] Last Admin: 05/31/17 17:09 Dose: 20 gm Multivitamins (Hexavitamin) 1 tab PO DAILY [facility] Last Admin: 05/31/17 09:45 Dose: 1 tab Pantoprazole Sodium (Protonix Susp) 40 mg PO 0600,1600 [facility] Last Admin: 06/01/17 06:23 Dose: 40 mg Thiamine HCl (Vitamin B1 Tab) 100 mg PO DAILY [facility] Last Admin: 05/31/17 09:45 Dose: 100 mg - Labs Labs: 06/01/17 08:10 06/01/17 08:10 PT 47.2 SECONDS (9.7-12.2) H* 06/01/17 08:10 INR 4.0 06/01/17 08:10 APTT 71 SECONDS (21-34) H D 05/30/17 11:11 - Constitutional Appears: No Acute Distress, Chronically Ill - Eye Exam Eye Exam: EOMI, PERRL, Scleral icterus - ENT Exam ENT Exam: Mucous Membranes Moist - Respiratory Exam Respiratory Exam: Clear to Ausculation Bilateral. absent: Rales, Rhonchi, Wheezes - Cardiovascular Exam Cardiovascular Exam: Tachycardia, REGULAR RHYTHM, +S1, +S2 - GI/Abdominal Exam GI & Abdominal Exam: Soft, Normal Bowel Sounds. absent: Distended, Firm, Guarding, Rigid, Tenderness, Organomegaly - Extremities Exam Extremities Exam: Normal Inspection. absent: Pedal Edema - Neurological Exam Neurological Exam: Alert, Awake, Oriented x3 - Psychiatric Exam Psychiatric exam: Normal Affect, Normal Mood - Skin Skin Exam: Dry, Warm Assessment and Plan - Assessment and Plan (Free Text) Assessment: Patient is a 36yo female with PMHx significant for EtOH cirrhosis, EtOH abuse/ dependence who presented ot the ED with painless jaundice, anemia and for detox from EtOH -EtOH cirrhosis -Possibly superimposed EtOH hepatitis vs progression of underlying CLD -Pancytopenia - likely myelosuppresive effects of chronic EtOH, CLD -HE, resolved -EtOH abuse/dependence -EtOH withdrawal Plan: -Awaiting transfer to [facility] in [place], [place]; accepted under Dr. Membreno -Continue supportive measures at this time -No plan for steroid initiation at this time despite MDF>32; discussed with DNJ team -Continue Lactulose as ordered; titrate to 2-3Bm/day -Will benefit from outpatient variceal screening -EtOH cessation *MDF: 178.6 *MELD-Na: 31 <Tee Harris - Last Filed: 06/01/17 19:36> Objective - Vital Signs/Intake and Output Vital Signs (last 24 hours): Temp Pulse Resp BP Pulse Ox 98.9 F 100 H 20 128/70 99 06/01/17 15:56 06/01/17 15:56 06/01/17 15:56 06/01/17 15:56 06/01/17 15:56 Intake and Output: 06/01/17 06/02/17 18:59 06:59 Intake Total 500 Balance 500 - Medications Medications: Current Medications Chlordiazepoxide (Librium) 5 mg PO Q8 PRN PRN Reason: Anxiety Last Admin: 05/31/17 05:48 Dose: 5 mg Folic Acid (Folic Acid) 1 mg PO DAILY [facility] Last Admin: 06/01/17 10:56 Dose: 1 mg Gabapentin (Neurontin) 100 mg PO TID [facility] Last Admin: 06/01/17 18:18 Dose: 100 mg Sodium Chloride (Sodium Chloride 0.9%) 1,000 mls @ 50 mls/hr IV .Q20H [facility] Last Admin: 06/01/17 07:58 Dose: Not Given Ciprofloxacin (Cipro 200mg/100ml D5w) 100 mls @ 67 mls/hr IVPB Q12H [facility] Stop: 06/04/17 18:31 Last Admin: 06/01/17 18:19 Dose: 67 mls/hr Lactulose (Enulose) 20 gm PO BID [facility] Last Admin: 06/01/17 18:18 Dose: 20 gm Multivitamins (Hexavitamin) 1 tab PO DAILY [facility] Last Admin: 06/01/17 10:55 Dose: 1 tab Pantoprazole Sodium (Protonix Susp) 40 mg PO 0600,1600 [facility] Last Admin: 06/01/17 16:02 Dose: 40 mg Thiamine HCl (Vitamin B1 Tab) 100 mg PO DAILY [facility] Last Admin: 06/01/17 10:56 Dose: 100 mg - Labs Labs: 06/01/17 08:10 06/01/17 08:10 PT 47.2 SECONDS (9.7-12.2) H* 06/01/17 08:10 INR 4.0 06/01/17 08:10 APTT 71 SECONDS (21-34) H D 05/30/17 11:11 Attending/Attestation - Attestation I have personally seen and examined this patient.: Yes I have fully participated in the care of the patient.: Yes I have reviewed all pertinent clinical information, including history, physical exam and plan: Yes Notes (Text): 06/01/17 19:35 36 year old female with history of alcohol abuse admitted with jaundice 1. Alcoholic Hepatitis 2. Anemia Plan: -considering markedly elevated Maddrey / MELD score, high risk of mortality short term, as well as young age of the patient, would recommend evaluation at transplant center, for consideration of trials or possibly transplant -await transfer to [facility] -diet as tolerated in the meantime -strict etoh cessation -continue lactulose for G1 encephalopathy -no need to correct INR in the absence of bleeding -hgb stable after transfusion -will follow
[2017-06-01] MEDS: Multiple Vitamins Tab PO SCH (10:55)
--- NOTE | 2017-06-01 17:22 | CP.PCM.PN ---
Subjective - Date & Time of Evaluation Date of Evaluation: 06/01/17 Time of Evaluation: 17:20 - Subjective Subjective: PT REMAINS STABLE TODAY; HAS NO COMPLAINTS OTHER THAN THAT SHE WANTS TO GO HOME OR TO [facility] SOON. STILL WAITING FOR [facility] TO ASSIGN BED TO THE PT AND CALL NURSING STAFF WITH THAT INFORMATION. GI SAW PT AND STILL ON CASE. URINE CX +; CIPRO ORDERED FOR NOW BUT PENDING SENSITIVITY REPORT. VSS. AM LABS ORDERED. WILL F/U WITH PT TOMORROW FOR POTENTIAL D/C. NO FURTHER ORDERS. Objective - Vital Signs/Intake and Output Vital Signs (last 24 hours): Temp Pulse Resp BP Pulse Ox 98.9 F 100 H 20 128/70 99 06/01/17 15:56 06/01/17 15:56 06/01/17 15:56 06/01/17 15:56 06/01/17 15:56 Intake and Output: 06/01/17 06/01/17 06:59 18:59 Intake Total 300 500 Balance 300 500 - Medications Medications: Current Medications Chlordiazepoxide (Librium) 5 mg PO Q8 PRN PRN Reason: Anxiety Last Admin: 05/31/17 05:48 Dose: 5 mg Folic Acid (Folic Acid) [address] [facility] Last Admin: 06/01/17 10:56 Dose: 1 mg Gabapentin (Neurontin) [address] [facility] Last Admin: 06/01/17 13:55 Dose: 100 mg Sodium Chloride (Sodium Chloride 0.9%) 1,000 mls @ 50 mls/hr IV .Q20H [facility] Last Admin: 06/01/17 07:58 Dose: Not Given Lactulose (Enulose) [address] [facility] Last Admin: 06/01/17 10:56 Dose: 20 gm Multivitamins (Hexavitamin) [address] [facility] Last Admin: 06/01/17 10:55 Dose: 1 tab Pantoprazole Sodium (Protonix Susp) 40 mg PO 0600,1600 [facility] Last Admin: 06/01/17 16:02 Dose: 40 mg Thiamine HCl (Vitamin B1 Tab) [address] [facility] Last Admin: 06/01/17 10:56 Dose: 100 mg - Labs Labs: 06/01/17 08:10 06/01/17 08:10 PT 47.2 SECONDS (9.7-12.2) H* 06/01/17 08:10 INR 4.0 06/01/17 08:10 APTT 71 SECONDS (21-34) H D 05/30/17 11:11
[2017-06-01] MEDS: Ciprofloxacin 200mg/100ml D5W 100 ML IVPB SCH (18:19)
--- NOTE | 2017-06-01 21:53 | CP.PCM.PN ---
Subjective - Date & Time of Evaluation Date of Evaluation: 06/01/17 Time of Evaluation: 21:52 - Subjective Subjective: Is currently standing up and walking. Not in any distress. Eating okay, mild tremor noted. Chest good air entry Regular heart sound nontender abdomen. Extended is 1+ pedal edema Labs reviewed Assessment a condition: 36-year-old female with history of LIVER disease, advance to liver disease. Liver disease. Details. Continue the current treatment. We'll follow the patient pt is currently awaiting for possible transfer to reference center for advanced liver disease management Objective - Vital Signs/Intake and Output Vital Signs (last 24 hours): Temp Pulse Resp BP Pulse Ox 98.9 F 100 H 20 128/70 99 06/01/17 15:56 06/01/17 15:56 06/01/17 15:56 06/01/17 15:56 06/01/17 15:56 Intake and Output: 06/01/17 06/02/17 18:59 06:59 Intake Total 500 Balance 500 - Medications Medications: Current Medications Chlordiazepoxide (Librium) 5 mg PO Q8 PRN PRN Reason: Anxiety Last Admin: 05/31/17 05:48 Dose: 5 mg Folic Acid (Folic Acid) 1 mg PO DAILY [facility] Last Admin: 06/01/17 10:56 Dose: 1 mg Gabapentin (Neurontin) 100 mg PO TID [facility] Last Admin: 06/01/17 18:18 Dose: 100 mg Ciprofloxacin (Cipro 200mg/100ml D5w) 100 mls @ 67 mls/hr IVPB Q12H [facility] Stop: 06/04/17 18:31 Last Admin: 06/01/17 18:19 Dose: 67 mls/hr Lactulose (Enulose) 20 gm PO BID [facility] Last Admin: 06/01/17 18:18 Dose: 20 gm Multivitamins (Hexavitamin) 1 tab PO DAILY [facility] Last Admin: 06/01/17 10:55 Dose: 1 tab Pantoprazole Sodium (Protonix Susp) 40 mg PO 0600,1600 [facility] Last Admin: 06/01/17 16:02 Dose: 40 mg Thiamine HCl (Vitamin B1 Tab) 100 mg PO DAILY [facility] Last Admin: 06/01/17 10:56 Dose: 100 mg - Labs Labs: 06/01/17 08:10 06/01/17 08:10 PT 47.2 SECONDS (9.7-12.2) H* 06/01/17 08:10 INR 4.0 06/01/17 08:10 APTT 71 SECONDS (21-34) H D 05/30/17 11:11
[2017-06-02] MEDS: Ciprofloxacin 200mg/100ml D5W 100 ML IVPB SCH ×2 (05:33→18:39)
[2017-06-02] MEDS: Pantoprazole 40 mg Susp UD PO SCH ×2 (05:39→16:21)
[2017-06-02 07:31] LABS: URINE BACTERIA RARE (<OCC); URINE BILIRUBIN NEGATIVE (NEGATIVE); URINE BLOOD 1+ (NEGATIVE); URINE COLOR Amber (YELLOW); URINE GLUCOSE (UA) NORMAL (Normal); URINE KETONE NEGATIVE (NEGATIVE); URINE LEUKOCYTE ESTERASE TRACE Leu/uL (Negative); URINE PROTEIN NEGATIVE (NEGATIVE); WBC URINE < 1 /hpf (0-5)
[2017-06-02 07:56] LABS: RBC URINE 5 /hpf (0-3)
[2017-06-02 09:13] LABS: EOS # 0.1 K/uL (0.0-0.7); EOS % 2.3 % (0.0-4.0); LYMPH # 1.3 K/uL (1.0-4.3); LYMPH % 35.4 % (20.0-40.0); MEAN CELL VOLUME 94.1 fL (81.0-99.0); MEAN PLATELET VOLUME 8.1 fL (7.2-11.7); MONO # 0.5 K/uL (0.0-0.8); MONO % 12.4 % (0.0-10.0); NRBC % 0.1 % (0.0-2.0); RED CELL DISTRIBUTION WIDTH 21.1 % (11.5-14.5); WHITE BLOOD COUNT 3.7 K/uL (4.8-10.8)
[2017-06-02 09:29] LABS: CHLORIDE 101 mmol/L (98-107); POTASSIUM 3.4 mmol/L (3.6-5.2); SODIUM 133 mmol/L (132-148)
[2017-06-02 09:31] LABS: BILIRUBIN,TOTAL 7.4 mg/dL (0.2-1.3); CARBON DIOXIDE 22 mmol/L (22-30); GFR AFRICAN-AMERICAN > 60
[2017-06-02 09:32] LABS: ALB/GLOB RATIO 0.4 (1.0-2.1); ALKALINE PHOSPHATASE 135 U/L (38-126); ALT/SGPT 38 U/L (9-52); AST/SGOT 44 U/L (14-36); BLOOD UREA NITROGEN 3 mg/dL (7-17); GLUCOSE,RANDOM 146 mg/dL (65-105); TOTAL PROTEIN 6.2 g/dL (6.3-8.3)
[2017-06-02 09:41] LABS: INR 3.7
[2017-06-02] MEDS: Multiple Vitamins Tab PO SCH (10:57)
--- NOTE | 2017-06-02 14:10 | CP.PCM.PN ---
<KayleyemmanuelleBal - Last Filed: 06/02/17 14:10> Subjective - Date & Time of Evaluation Date of Evaluation: 06/02/17 Time of Evaluation: 12:05 - Subjective Subjective: PGY5 GI Fellow Progress Note Patient seen and examined bedside this morning. The patient denies any complaints at this time. States that she is not living with her / daughter at this time but does not elaborate on reasoning; denies feeling unsafe with them. Admits to 2 24oz beer daily since age 15, some intermittent sobriety. Never been in rehab. Currently no new symptoms. 12 system ROS performed and negative except where stated. Objective - Vital Signs/Intake and Output Vital Signs (last 24 hours): Temp Pulse Resp BP Pulse Ox 98.7 F 98 H 20 146/84 98 06/02/17 08:49 06/02/17 08:49 06/02/17 08:49 06/02/17 08:49 06/02/17 08:49 Intake and Output: 06/02/17 06/02/17 06:59 18:59 Intake Total 650 Balance 650 - Medications Medications: Current Medications Chlordiazepoxide (Librium) 5 mg PO Q8 PRN PRN Reason: Anxiety Last Admin: 05/31/17 05:48 Dose: 5 mg Folic Acid (Folic Acid) 1 mg PO DAILY [facility] Last Admin: 06/02/17 10:57 Dose: 1 mg Gabapentin (Neurontin) 100 mg PO TID [facility] Last Admin: 06/02/17 13:49 Dose: 100 mg Ciprofloxacin (Cipro 200mg/100ml D5w) 100 mls @ 67 mls/hr IVPB Q12H [facility] Stop: 06/04/17 18:31 Last Admin: 06/02/17 05:33 Dose: 67 mls/hr Lactulose (Enulose) 20 gm PO BID [facility] Last Admin: 06/02/17 10:58 Dose: 20 gm Multivitamins (Hexavitamin) 1 tab PO DAILY [facility] Last Admin: 06/02/17 10:57 Dose: 1 tab Pantoprazole Sodium (Protonix Susp) 40 mg PO 0600,1600 [facility] Last Admin: 06/02/17 05:39 Dose: 40 mg Thiamine HCl (Vitamin B1 Tab) 100 mg PO DAILY [facility] Last Admin: 06/02/17 10:57 Dose: 100 mg - Labs Labs: 06/02/17 08:58 06/02/17 08:58 PT 43.9 SECONDS (9.7-12.2) H* 06/02/17 08:58 INR 3.7 06/02/17 08:58 APTT 76 SECONDS (21-34) H D 06/02/17 08:58 - Constitutional Appears: No Acute Distress, Chronically Ill - Eye Exam Eye Exam: EOMI, PERRL, Scleral icterus - ENT Exam ENT Exam: Mucous Membranes Moist - Respiratory Exam Respiratory Exam: Clear to Ausculation Bilateral. absent: Rales, Rhonchi, Wheezes - Cardiovascular Exam Cardiovascular Exam: RRR, +S1, +S2 - GI/Abdominal Exam GI & Abdominal Exam: Distended, Soft, Normal Bowel Sounds. absent: Firm, Guarding, Rigid, Tenderness, Organomegaly - Extremities Exam Extremities Exam: Normal Inspection. absent: Pedal Edema - Neurological Exam Neurological Exam: Alert, Awake, Oriented x3 - Psychiatric Exam Psychiatric exam: Normal Affect, Normal Mood - Skin Skin Exam: Dry, Warm Assessment and Plan - Assessment and Plan (Free Text) Assessment: Patient is a 36yo female with PMHx significant for EtOH cirrhosis, EtOH abuse/ dependence who presented ot the ED with painless jaundice, anemia and for detox from EtOH -EtOH cirrhosis -Possibly superimposed EtOH hepatitis vs progression of underlying CLD -Pancytopenia - likely myelosuppresive effects of chronic EtOH, CLD -HE, resolved -EtOH abuse/dependence -EtOH withdrawal, resolving Plan: -Daily CBC, CMP, INR -Awaiting transfer to [facility] in [place], [place]; accepted under Dr. Membreno -Continue supportive measures at this time -No plan for steroid initiation at this time despite MDF>32; [facility] - patient also has active UTI -Cipro for UTI -Continue Lactulose as ordered; titrate to 2-3Bm/day -Will benefit from outpatient variceal screening -EtOH cessation *MDF: >32 *MELD-Na: 31 <Slim Monae MD - Last Filed: 06/02/17 16:08> Objective - Vital Signs/Intake and Output Vital Signs (last 24 hours): Temp Pulse Resp BP Pulse Ox 98.7 F 98 H 20 146/84 98 06/02/17 08:49 06/02/17 08:49 06/02/17 08:49 06/02/17 08:49 06/02/17 08:49 Intake and Output: 06/02/17 06/02/17 06:59 18:59 Intake Total 650 380 Balance 650 380 - Medications Medications: Current Medications Chlordiazepoxide (Librium) 5 mg PO Q8 PRN PRN Reason: Anxiety Last Admin: 05/31/17 05:48 Dose: 5 mg Folic Acid (Folic Acid) 1 mg PO DAILY [facility] Last Admin: 06/02/17 10:57 Dose: 1 mg Gabapentin (Neurontin) 100 mg PO TID [facility] Last Admin: 06/02/17 13:49 Dose: 100 mg Ciprofloxacin (Cipro 200mg/100ml D5w) 100 mls @ 67 mls/hr IVPB Q12H [facility] Stop: 06/04/17 18:31 Last Admin: 06/02/17 05:33 Dose: 67 mls/hr Lactulose (Enulose) 20 gm PO BID [facility] Last Admin: 06/02/17 10:58 Dose: 20 gm Multivitamins (Hexavitamin) 1 tab PO DAILY [facility] Last Admin: 06/02/17 10:57 Dose: 1 tab Pantoprazole Sodium (Protonix Susp) 40 mg PO 0600,1600 [facility] Last Admin: 06/02/17 05:39 Dose: 40 mg Thiamine HCl (Vitamin B1 Tab) 100 mg PO DAILY [facility] Last Admin: 06/02/17 10:57 Dose: 100 mg - Labs Labs: 06/02/17 08:58 06/02/17 08:58 PT 43.9 SECONDS (9.7-12.2) H* 06/02/17 08:58 INR 3.7 06/02/17 08:58 APTT 76 SECONDS (21-34) H D 06/02/17 08:58 Attending/Attestation - Attestation I have personally seen and examined this patient.: Yes I have fully participated in the care of the patient.: Yes I have reviewed all pertinent clinical information, including history, physical exam and plan: Yes Notes (Text): 06/02/17 16:05 Patient seen with GI fellow on rounds. This is a 36 yo female with PMHx significant for EtOH cirrhosis, EtOH abuse/dependence who presented to the ED with painless jaundice, anemia ain setting of acute on chronic decompensated liver disease and alcoholic hepatitis. DF > 32 but not a candidate for steroids due to gram negative UTI- continue antibiotics as per sensitivities. Pending transfer to [facility] for KAT trail. Needs EGd for variceal screening- large varices on imaging with coagulopathy- high risk for bleed. High protein, high calorie diet. Supportive care.
[2017-06-02 17:49] LABS: LKM-1 Ab (IgG) <=20.0 U (<=20.0)
--- NOTE | 2017-06-02 17:52 | CP.PCM.PN ---
Subjective - Date & Time of Evaluation Date of Evaluation: 06/02/17 Time of Evaluation: 17:48 - Subjective Subjective: PT SEEN TODAY. REMAINS STABLE. SEEN BY GI TEAM WHO F/U WITH [facility] AND RECOMMENDED NOT TO START PREDNISONE TREATMENT HERE IT MAY AFFECT THE TREATMENT THEY WILL DO. I DISCUSSED THIS AT LENGTH WITH THE PT, SHE WAS VERY UPSET WITH GI SAYING "WE CAN'T DO ANYTHING FOR YOU." I ADDRESSED AND CLARIFIED ALL CONCERNS. PT DENIES ANY COMPLAINTS. DENIES PAIN. TOLERATING PO WELL. MILD TREMORS NOTED, BS CTA B/L, TACHY AT 102 REG RHYTHM, ABD SOFT/NT/ND. LABS NOTED; INR IMPROVING. DR. LALA TO SEE PT DURING HIS ROUNDS. MADE MD AWARE THAT WE ARE STILL PENDING BED ASSIGNMENT AT [facility]. Objective - Vital Signs/Intake and Output Vital Signs (last 24 hours): Temp Pulse Resp BP Pulse Ox 98.7 F 98 H 20 146/84 98 06/02/17 08:49 06/02/17 08:49 06/02/17 08:49 06/02/17 08:49 06/02/17 08:49 Intake and Output: 06/02/17 06/02/17 06:59 18:59 Intake Total 650 380 Balance 650 380 - Medications Medications: Current Medications Chlordiazepoxide (Librium) 5 mg PO Q8 PRN PRN Reason: Anxiety Last Admin: 05/31/17 05:48 Dose: 5 mg Folic Acid (Folic Acid) 1 mg PO DAILY [facility] Last Admin: 06/02/17 10:57 Dose: 1 mg Gabapentin (Neurontin) 100 mg PO TID [facility] Last Admin: 06/02/17 13:49 Dose: 100 mg Ciprofloxacin (Cipro 200mg/100ml D5w) 100 mls @ 67 mls/hr IVPB Q12H [facility] Stop: 06/04/17 18:31 Last Admin: 06/02/17 05:33 Dose: 67 mls/hr Lactulose (Enulose) 20 gm PO BID [facility] Last Admin: 06/02/17 10:58 Dose: 20 gm Multivitamins (Hexavitamin) 1 tab PO DAILY [facility] Last Admin: 06/02/17 10:57 Dose: 1 tab Pantoprazole Sodium (Protonix Susp) 40 mg PO 0600,1600 [facility] Last Admin: 06/02/17 16:21 Dose: 40 mg Thiamine HCl (Vitamin B1 Tab) 100 mg PO DAILY [facility] Last Admin: 06/02/17 10:57 Dose: 100 mg - Labs Labs: 06/02/17 08:58 06/02/17 08:58 PT 43.9 SECONDS (9.7-12.2) H* 06/02/17 08:58 INR 3.7 06/02/17 08:58 APTT 76 SECONDS (21-34) H D 06/02/17 08:58
--- NOTE | 2017-06-02 18:27 | CP.PCM.PN ---
Subjective - Date & Time of Evaluation Date of Evaluation: 06/02/17 Time of Evaluation: 18:25 - Subjective Subjective: Is awake and responding, comfortable, not in any distress. Abdominal pain is negative, patient has a bilateral leg swelling Vital signs stable. Chest good air entry bilaterally regular heart sound nontender abdomen Pedal edema bilaterally noted. Labs reviewed Escherichia coli in the urine noted, currently on ciprofloxacin. We'll add the patient on diuretics Spoke to the patient and family. We'll follow the patient Objective - Vital Signs/Intake and Output Vital Signs (last 24 hours): Temp Pulse Resp BP Pulse Ox 98.7 F 98 H 20 146/84 98 06/02/17 08:49 06/02/17 08:49 06/02/17 08:49 06/02/17 08:49 06/02/17 08:49 Intake and Output: 06/02/17 06/02/17 06:59 18:59 Intake Total 650 380 Balance 650 380 - Medications Medications: Current Medications Chlordiazepoxide (Librium) 5 mg PO Q8 PRN PRN Reason: Anxiety Last Admin: 05/31/17 05:48 Dose: 5 mg Folic Acid (Folic Acid) 1 mg PO DAILY [facility] Last Admin: 06/02/17 10:57 Dose: 1 mg Furosemide (Lasix) 20 mg PO DAILY [facility] Gabapentin (Neurontin) 100 mg PO TID [facility] Last Admin: 06/02/17 13:49 Dose: 100 mg Ciprofloxacin (Cipro 200mg/100ml D5w) 100 mls @ 67 mls/hr IVPB Q12H [facility] Stop: 06/04/17 18:31 Last Admin: 06/02/17 05:33 Dose: 67 mls/hr Lactulose (Enulose) 20 gm PO BID [facility] Last Admin: 06/02/17 10:58 Dose: 20 gm Multivitamins (Hexavitamin) 1 tab PO DAILY [facility] Last Admin: 06/02/17 10:57 Dose: 1 tab Pantoprazole Sodium (Protonix Susp) 40 mg PO 0600,1600 [facility] Last Admin: 06/02/17 16:21 Dose: 40 mg Thiamine HCl (Vitamin B1 Tab) 100 mg PO DAILY [facility] Last Admin: 06/02/17 10:57 Dose: 100 mg - Labs Labs: 06/02/17 08:58 06/02/17 08:58 PT 43.9 SECONDS (9.7-12.2) H* 06/02/17 08:58 INR 3.7 06/02/17 08:58 APTT 76 SECONDS (21-34) H D 06/02/17 08:58
[2017-06-03] MEDS: Pantoprazole 40 mg Susp UD PO SCH ×2 (05:41→16:29)
[2017-06-03] MEDS: Ciprofloxacin 200mg/100ml D5W 100 ML IVPB SCH ×2 (05:41→18:30)
[2017-06-03 08:33] LABS: BASO % 0.7 % (0.0-2.0); EOS # 0.1 K/uL (0.0-0.7); EOS % 2.1 % (0.0-4.0); HEMATOCRIT 23.9 % (34.0-47.0); LYMPH # 1.3 K/uL (1.0-4.3); LYMPH % 30.2 % (20.0-40.0); MEAN CELL VOLUME 93.7 fL (81.0-99.0); MEAN CORPUSCULAR HEMOGLOBIN 31.3 pg (27.0-31.0); MEAN CORPUSCULAR HGB CONC 33.4 g/dL (33.0-37.0); MEAN PLATELET VOLUME 8.8 fL (7.2-11.7); MONO # 0.4 K/uL (0.0-0.8); MONO % 9.7 % (0.0-10.0); RED CELL DISTRIBUTION WIDTH 21.2 % (11.5-14.5); WHITE BLOOD COUNT 4.1 K/uL (4.8-10.8)
[2017-06-03 08:35] LABS: INR 3.5
[2017-06-03 08:41] LABS: CHLORIDE 99 mmol/L (98-107); SODIUM 133 mmol/L (132-148)
[2017-06-03 08:42] LABS: POTASSIUM 3.5 mmol/L (3.6-5.2)
[2017-06-03 08:44] LABS: ALB/GLOB RATIO 0.4 (1.0-2.1); ALKALINE PHOSPHATASE 183 U/L (38-126); ALT/SGPT 37 U/L (9-52); AST/SGOT 48 U/L (14-36); BILIRUBIN,TOTAL 7.5 mg/dL (0.2-1.3); BLOOD UREA NITROGEN 3 mg/dL (7-17); CALCIUM 6.9 mg/dl (8.6-10.4); CARBON DIOXIDE 24 mmol/L (22-30); GFR AFRICAN-AMERICAN > 60; GLUCOSE,RANDOM 125 mg/dL (65-105); TOTAL PROTEIN 6.5 g/dL (6.3-8.3)
[2017-06-03] MEDS: Multiple Vitamins Tab PO SCH (09:54)
--- NOTE | 2017-06-03 11:46 | CP.PCM.PN ---
<RadhatateemmanuelleBal - Last Filed: 06/03/17 11:42> Subjective - Date & Time of Evaluation Date of Evaluation: 06/03/17 Time of Evaluation: 09:50 - Subjective Subjective: PGY5 GI Fellow Progress Note Patient seen and examined bedside this morning. The patient denies any new complaints today. States she is tolerating diet and admits she has been eating junk food at bedside (chips, cookies, cake) which is not part of her low Na diet. No events overnight. 12 system ROS performed and negative except where stated. Objective - Vital Signs/Intake and Output Vital Signs (last 24 hours): Temp Pulse Resp BP Pulse Ox 98.6 F 108 H 20 151/90 H 98 06/03/17 08:52 06/03/17 08:52 06/03/17 08:52 06/03/17 09:54 06/03/17 08:52 Intake and Output: 06/03/17 06/03/17 06:59 18:59 Intake Total 750 Balance 750 - Medications Medications: Current Medications Chlordiazepoxide (Librium) 5 mg PO Q8 PRN PRN Reason: Anxiety Last Admin: 05/31/17 05:48 Dose: 5 mg Folic Acid (Folic Acid) 1 mg PO DAILY [facility] Last Admin: 06/03/17 09:57 Dose: 1 mg Furosemide (Lasix) 20 mg PO DAILY [facility] Last Admin: 06/03/17 09:54 Dose: 20 mg Gabapentin (Neurontin) 100 mg PO TID [facility] Last Admin: 06/03/17 09:54 Dose: 100 mg Ciprofloxacin (Cipro 200mg/100ml D5w) 100 mls @ 67 mls/hr IVPB Q12H [facility] Stop: 06/04/17 18:31 Last Admin: 06/03/17 05:41 Dose: 67 mls/hr Lactulose (Enulose) 20 gm PO BID [facility] Last Admin: 06/03/17 09:54 Dose: 20 gm Multivitamins (Hexavitamin) 1 tab PO DAILY [facility] Last Admin: 06/03/17 09:54 Dose: 1 tab Pantoprazole Sodium (Protonix Susp) 40 mg PO 0600,1600 [facility] Last Admin: 06/03/17 05:41 Dose: 40 mg Spironolactone (Aldactone) 25 mg PO DAILY [facility] Last Admin: 06/03/17 09:54 Dose: 25 mg Thiamine HCl (Vitamin B1 Tab) 100 mg PO DAILY [facility] Last Admin: 06/03/17 09:54 Dose: 100 mg - Labs Labs: 06/03/17 08:24 06/03/17 08:24 PT 41.2 SECONDS (9.7-12.2) H* 06/03/17 08:24 INR 3.5 06/03/17 08:24 APTT 76 SECONDS (21-34) H D 06/02/17 08:58 - Constitutional Appears: Non-toxic, No Acute Distress - Eye Exam Eye Exam: EOMI, PERRL, Scleral icterus - ENT Exam ENT Exam: Mucous Membranes Moist - Respiratory Exam Respiratory Exam: Clear to Ausculation Bilateral. absent: Rales, Rhonchi, Wheezes - Cardiovascular Exam Cardiovascular Exam: RRR, +S1, +S2 - GI/Abdominal Exam GI & Abdominal Exam: Soft, Normal Bowel Sounds. absent: Distended, Firm, Guarding, Rigid, Tenderness, Organomegaly - Extremities Exam Extremities Exam: Normal Inspection. absent: Pedal Edema - Neurological Exam Neurological Exam: Alert, Awake, Oriented x3 - Psychiatric Exam Psychiatric exam: Normal Affect, Normal Mood - Skin Skin Exam: Dry, Warm Assessment and Plan - Assessment and Plan (Free Text) Assessment: Patient is a 36yo female with PMHx significant for EtOH cirrhosis, EtOH abuse/ dependence who presented ot the ED with painless jaundice, anemia and for detox from EtOH -EtOH cirrhosis -Possibly superimposed EtOH hepatitis vs progression of underlying CLD -Pancytopenia - likely myelosuppresive effects of chronic EtOH, CLD -HE, resolved -EtOH abuse/dependence -EtOH withdrawal, resolving Plan: -Daily CBC, CMP, INR -Plan for EGD tomorrow for variceal screening -NPO past MN -Transfuse platelets tonight starting at 1700 if available; FFP at 0400 tomorrow morning -Supportive measures -Encouraage adherence to low Na diet -EtOH abstinence -Awaiting transfer to [facility] in [place], [place]; accepted under Dr. Membreno -Continue supportive measures at this time -No plan for steroid initiation at this time despite MDF>32; discussed with [facility] team - patient also has active UTI -Cipro for UTI -Continue Lactulose as ordered; titrate to 2-3Bm/day *MDF: >32 *MELD-Na: 31 <Monae MD,Taruna - Last Filed: 06/03/17 12:49> Objective - Vital Signs/Intake and Output Vital Signs (last 24 hours): Temp Pulse Resp BP Pulse Ox 98.6 F 108 H 20 151/90 H 98 06/03/17 08:52 06/03/17 08:52 06/03/17 08:52 06/03/17 09:54 06/03/17 08:52 Intake and Output: 06/03/17 06/03/17 06:59 18:59 Intake Total 750 Balance 750 - Medications Medications: Current Medications Chlordiazepoxide (Librium) 5 mg PO Q8 PRN PRN Reason: Anxiety Last Admin: 05/31/17 05:48 Dose: 5 mg Folic Acid (Folic Acid) 1 mg PO DAILY [facility] Last Admin: 06/03/17 09:57 Dose: 1 mg Furosemide (Lasix) 20 mg PO DAILY [facility] Last Admin: 06/03/17 09:54 Dose: 20 mg Gabapentin (Neurontin) 100 mg PO TID [facility] Last Admin: 06/03/17 09:54 Dose: 100 mg Ciprofloxacin (Cipro 200mg/100ml D5w) 100 mls @ 67 mls/hr IVPB Q12H [facility] Stop: 06/04/17 18:31 Last Admin: 06/03/17 05:41 Dose: 67 mls/hr Lactulose (Enulose) 20 gm PO BID [facility] Last Admin: 06/03/17 09:54 Dose: 20 gm Multivitamins (Hexavitamin) 1 tab PO DAILY [facility] Last Admin: 06/03/17 09:54 Dose: 1 tab Pantoprazole Sodium (Protonix Susp) 40 mg PO 0600,1600 [facility] Last Admin: 06/03/17 05:41 Dose: 40 mg Spironolactone (Aldactone) 25 mg PO DAILY [facility] Last Admin: 06/03/17 09:54 Dose: 25 mg Thiamine HCl (Vitamin B1 Tab) 100 mg PO DAILY [facility] Last Admin: 06/03/17 09:54 Dose: 100 mg - Labs Labs: 06/03/17 08:24 06/03/17 08:24 PT 41.2 SECONDS (9.7-12.2) H* 06/03/17 08:24 INR 3.5 06/03/17 08:24 APTT 76 SECONDS (21-34) H D 06/02/17 08:58 Attending/Attestation - Attestation I have personally seen and examined this patient.: Yes I have fully participated in the care of the patient.: Yes I have reviewed all pertinent clinical information, including history, physical exam and plan: Yes Notes (Text): 06/03/17 12:47 Patient seen with GI fellow on rounds. This is a 36 yo female with PMHx significant for EtOH cirrhosis, EtOH abuse/dependence who presented to the ED with painless jaundice, anemia in setting of acute on chronic decompensated liver disease and alcoholic hepatitis. DF > 32 but not a candidate for steroids due to E coli UTI- continue antibiotics as per sensitivities. Pending transfer to [facility] for K[facility] trail. Needs EGD for variceal screening- large varices on imaging with coagulopathy- high risk for bleed. Will give platelets today and FFP in am to correct coagulopathy for variceal screening and banding. High protein, high calorie diet. Counselled patient to have low salt diet as she was having chips brought from home. Supportive care.
--- NOTE | 2017-06-03 18:35 | CP.PCM.PN ---
Subjective - Date & Time of Evaluation Date of Evaluation: 06/03/17 Time of Evaluation: 18:33 - Subjective Subjective: 36-year-old female with history of liver disease, chronic liver disease secondary to alcoholism. Patient admitted with severe anemia. Mild withdrawal symptoms noted, minimal shaking and tachycardia noted. Patient is otherwise feeling well. On ciprofloxacin. Liver enzymes elevated. On examination: HEENT PERRLA, neck supple No thyromegaly was noted and no cervical adenopathy noted Chest bilateral good air entry, no wheezing or rales noted CVS regular heart sound, no murmur Abdomen distention noted. Extremities no pedal edema, no leg swelling, pedal pulses are good. [employer] alert awake oriented x3 no functional neurological deficit. Labs reviewed. Liver and is improving. Assessment and recommendation: 36-year-old female with history of alcoholism of chronic liver disease anemia secondary to alcoholism admitted with the worsening anemia. Patient is currently on diuretics. Continue the current treatment. Will follow the patient Objective - Vital Signs/Intake and Output Vital Signs (last 24 hours): Temp Pulse Resp BP Pulse Ox 99.4 F 107 H 20 132/78 98 06/03/17 16:15 06/03/17 16:15 06/03/17 16:15 06/03/17 16:15 06/03/17 16:15 Intake and Output: 06/03/17 06/03/17 06:59 18:59 Intake Total 750 Balance 750 - Medications Medications: Current Medications Acetaminophen (Tylenol 325mg Tab) 650 mg PO Q6 PRN PRN Reason: Fever >100.4 F Folic Acid (Folic Acid) 1 mg PO DAILY [facility] Last Admin: 06/03/17 09:57 Dose: 1 mg Furosemide (Lasix) 20 mg PO DAILY [facility] Last Admin: 06/03/17 09:54 Dose: 20 mg Gabapentin (Neurontin) 100 mg PO TID [facility] Last Admin: 06/03/17 17:23 Dose: 100 mg Ciprofloxacin (Cipro 200mg/100ml D5w) 100 mls @ 67 mls/hr IVPB Q12H [facility] Stop: 06/04/17 18:31 Last Admin: 06/03/17 05:41 Dose: 67 mls/hr Lactulose (Enulose) 20 gm PO BID [facility] Last Admin: 06/03/17 17:23 Dose: 20 gm Multivitamins (Hexavitamin) 1 tab PO DAILY [facility] Last Admin: 06/03/17 09:54 Dose: 1 tab Pantoprazole Sodium (Protonix Susp) 40 mg PO 0600,1600 [facility] Last Admin: 06/03/17 16:29 Dose: 40 mg Spironolactone (Aldactone) 25 mg PO DAILY [facility] Last Admin: 06/03/17 09:54 Dose: 25 mg Thiamine HCl (Vitamin B1 Tab) 100 mg PO DAILY [facility] Last Admin: 06/03/17 09:54 Dose: 100 mg - Labs Labs: 06/03/17 08:24 06/03/17 08:24 PT 41.2 SECONDS (9.7-12.2) H* 06/03/17 08:24 INR 3.5 06/03/17 08:24 APTT 76 SECONDS (21-34) H D 06/02/17 08:58
[2017-06-03] MEDS ORDERED: DiphenhydrAMINE 50 mg/ml Inj IVP STA ×2 (20:59→21:17)
[2017-06-04] MEDS: Pantoprazole 40 mg Susp UD PO SCH ×2 (05:25→17:12)
[2017-06-04] MEDS: Ciprofloxacin 200mg/100ml D5W 100 ML IVPB SCH ×2 (05:31→19:17)
--- NOTE | 2017-06-04 07:17 | CP.PCM.PN ---
<Chery Arora - Last Filed: 06/04/17 12:15> Subjective - Date & Time of Evaluation Date of Evaluation: 06/04/17 Time of Evaluation: 06:50 - Subjective Subjective: PGY4 GI follow-up note Pt seen and examined bedside Over night events noted Had a transfusion reaction to platlets, s/p [employer] (cancelled) s/p benadryl Had a rash in LE B/L, no complaints of SOB EGD sceduled for today was cancelled after conversation with primary No other complaints at this time reporting 2-3 Bm daily, with soft and formed stool 12- Point ROS conducted, other than what was stated above, it is neg Objective - Vital Signs/Intake and Output Vital Signs (last 24 hours): Temp Pulse Resp BP Pulse Ox 98.8 F 94 H 20 131/80 97 06/04/17 04:00 06/04/17 04:00 06/04/17 04:00 06/04/17 04:00 06/04/17 00:16 Intake and Output: 06/04/17 06/04/17 06:59 18:59 Intake Total 652 Balance 652 - Medications Medications: Current Medications Chlordiazepoxide (Librium) 5 mg PO Q12 PRN PRN Reason: Anxiety Folic Acid (Folic Acid) 1 mg PO DAILY [facility] Last Admin: 06/03/17 09:57 Dose: 1 mg Furosemide (Lasix) 20 mg PO DAILY [facility] Last Admin: 06/03/17 09:54 Dose: 20 mg Gabapentin (Neurontin) 100 mg PO TID [facility] Last Admin: 06/03/17 17:23 Dose: 100 mg Ciprofloxacin (Cipro 200mg/100ml D5w) 100 mls @ 67 mls/hr IVPB Q12H [facility] Stop: 06/04/17 18:31 Last Admin: 06/04/17 05:31 Dose: 67 mls/hr Lactulose (Enulose) 20 gm PO BID [facility] Last Admin: 06/03/17 17:23 Dose: 20 gm Multivitamins (Hexavitamin) 1 tab PO DAILY [facility] Last Admin: 06/03/17 09:54 Dose: 1 tab Pantoprazole Sodium (Protonix Susp) 40 mg PO 0600,1600 [facility] Last Admin: 06/04/17 05:25 Dose: 40 mg Spironolactone (Aldactone) 25 mg PO DAILY [facility] Last Admin: 06/03/17 09:54 Dose: 25 mg Thiamine HCl (Vitamin B1 Tab) 100 mg PO DAILY [facility] Last Admin: 06/03/17 09:54 Dose: 100 mg - Labs Labs: 06/03/17 08:24 06/03/17 08:24 PT 41.2 SECONDS (9.7-12.2) H* 06/03/17 08:24 INR 3.5 06/03/17 08:24 APTT 76 SECONDS (21-34) H D 06/02/17 08:58 - Constitutional Appears: Non-toxic, No Acute Distress - Head Exam Head Exam: ATRAUMATIC, NORMOCEPHALIC - Eye Exam Eye Exam: Scleral icterus - ENT Exam ENT Exam: Mucous Membranes Moist, Normal Exam - Neck Exam Neck Exam: Normal Inspection - Respiratory Exam Respiratory Exam: Clear to Ausculation Bilateral, NORMAL BREATHING PATTERN. absent: Rales, Rhonchi, Wheezes, Respiratory Distress - Cardiovascular Exam Cardiovascular Exam: REGULAR RHYTHM, +S1, +S2 - GI/Abdominal Exam GI & Abdominal Exam: Soft, Normal Bowel Sounds, Organomegaly. absent: Guarding , Rigid, Tenderness, Rebound - Extremities Exam Extremities Exam: Normal Capillary Refill, Normal Inspection. absent: Joint Swelling, Pedal Edema, Tenderness - Neurological Exam Neurological Exam: Alert, Awake, Oriented x3 - Psychiatric Exam Psychiatric exam: Normal Affect, Normal Mood - Skin Skin Exam: Dry, Intact, Normal Color, Warm Assessment and Plan - Assessment and Plan (Free Text) Assessment: Patient is a 36yo female with PMHx significant for EtOH cirrhosis, EtOH abuse/ dependence who presented ot the ED with painless jaundice, anemia and for detox from EtOH -EtOH cirrhosis -Possibly superimposed EtOH hepatitis vs progression of underlying CLD -Pancytopenia - likely myelosuppresive effects of chronic EtOH, CLD -HE, resolved -EtOH abuse/dependence -EtOH withdrawal, resolving Plan: -Daily CBC, CMP, INR -hold on EGD for now -s/p transfusion reaction with resolution of symptoms s/p benadryl -restart diet -Supportive measures -Encouraage adherence to low Na diet -EtOH abstinence -Awaiting transfer to [facility] in [place], [place]; accepted under Dr. Colbert -Continue supportive measures at this time -No plan for steroid initiation at this time despite MDF>32; discussed with [facility] team - patient also has active UTI -Cipro for UTI -Continue Lactulose as ordered; titrate to 2-3Bm/day *MDF: >32; 06/03 141.8 *MELD-Na: 06/03 30 -will start pt on propanolol 10mg BID and increase as oupt D/W Dr. Monae <Slim Monae MD - Last Filed: 06/04/17 19:19> Objective - Vital Signs/Intake and Output Vital Signs (last 24 hours): Temp Pulse Resp BP Pulse Ox 98.6 F 79 20 130/73 100 06/04/17 15:56 06/04/17 15:56 06/04/17 15:56 06/04/17 15:56 06/04/17 15:56 Intake and Output: 06/04/17 06/05/17 18:59 06:59 Intake Total 240 Balance 240 - Medications Medications: Current Medications Chlordiazepoxide (Librium) 5 mg PO Q12 PRN PRN Reason: Anxiety Folic Acid (Folic Acid) 1 mg PO DAILY [facility] Last Admin: 06/04/17 11:23 Dose: 1 mg Furosemide (Lasix) 20 mg PO DAILY [facility] Last Admin: 06/04/17 11:22 Dose: 20 mg Gabapentin (Neurontin) 100 mg PO TID [facility] Last Admin: 06/04/17 17:12 Dose: 100 mg Lactulose (Enulose) 20 gm PO BID [facility] Last Admin: 06/04/17 17:12 Dose: 20 gm Multivitamins (Hexavitamin) 1 tab PO DAILY [facility] Last Admin: 06/04/17 11:21 Dose: 1 tab Pantoprazole Sodium (Protonix Susp) 40 mg PO 0600,1600 [facility] Last Admin: 06/04/17 17:12 Dose: 40 mg Propranolol HCl (Inderal) 10 mg PO TID [facility] Last Admin: 06/04/17 17:12 Dose: 10 mg Spironolactone (Aldactone) 25 mg PO DAILY [facility] Last Admin: 06/04/17 11:21 Dose: 25 mg Thiamine HCl (Vitamin B1 Tab) 100 mg PO DAILY [facility] Last Admin: 06/04/17 11:22 Dose: 100 mg - Labs Labs: 06/04/17 07:45 06/04/17 07:45 PT 33.6 SECONDS (9.7-12.2) H* D 06/04/17 07:45 INR 2.8 D 06/04/17 07:45 APTT 76 SECONDS (21-34) H D 06/02/17 08:58 Attending/Attestation - Attestation I have personally seen and examined this patient.: Yes I have fully participated in the care of the patient.: Yes I have reviewed all pertinent clinical information, including history, physical exam and plan: Yes Notes (Text): 06/04/17 19:15 Patient seen with GI fellow on rounds. This is a 36 yo female with PMHx significant for EtOH cirrhosis, EtOH abuse/dependence who presented to the ED with painless jaundice, anemia in setting of acute on chronic decompensated liver disease and alcoholic hepatitis. DF > 32 but not a candidate for steroids due to E coli UTI- continue antibiotics as per sensitivities. Pending transfer to [facility] for [facility]. She was started on low dose diuretics by primary team for grade 1 LE that she has tolerated. Was scheduled for EGD for today but was given platelets last night that gave her transfusion reaction. Transfusion was stopped. She was given FFP for her coagulopathy. Lengthy discussion with primary attending to wait the transfer and instead start b fabby for large varices on imaging and also alcohol withdrawl induced tachycardia. High protein , low sodium, high calorie diet. Supportive care. Was drinking alcohol till this admission- currently not a transplant candidate
[2017-06-04 07:52] LABS: BASO % 0.6 % (0.0-2.0); EOS # 0.1 K/uL (0.0-0.7); EOS % 1.7 % (0.0-4.0); HEMATOCRIT 22.7 % (34.0-47.0); LYMPH # 1.6 K/uL (1.0-4.3); LYMPH % 36.7 % (20.0-40.0); MEAN CELL VOLUME 94.8 fL (81.0-99.0); MEAN CORPUSCULAR HEMOGLOBIN 31.5 pg (27.0-31.0); MEAN CORPUSCULAR HGB CONC 33.2 g/dL (33.0-37.0); MEAN PLATELET VOLUME 8.9 fL (7.2-11.7); MONO # 0.5 K/uL (0.0-0.8); MONO % 12.4 % (0.0-10.0); NRBC % 0.1 % (0.0-2.0); RED CELL DISTRIBUTION WIDTH 21.1 % (11.5-14.5); WHITE BLOOD COUNT 4.3 K/uL (4.8-10.8)
[2017-06-04 08:02] LABS: CHLORIDE 103 mmol/L (98-107); SODIUM 135 mmol/L (132-148)
[2017-06-04 08:03] LABS: POTASSIUM 3.5 mmol/L (3.6-5.2)
[2017-06-04 08:05] LABS: ALB/GLOB RATIO 0.5 (1.0-2.1); ALKALINE PHOSPHATASE 140 U/L (38-126); ALT/SGPT 40 U/L (9-52); AST/SGOT 48 U/L (14-36); BILIRUBIN,TOTAL 8.8 mg/dL (0.2-1.3); BLOOD UREA NITROGEN 4 mg/dL (7-17); CARBON DIOXIDE 23 mmol/L (22-30); GFR AFRICAN-AMERICAN > 60; TOTAL PROTEIN 6.6 g/dL (6.3-8.3)
[2017-06-04 08:06] LABS: CALCIUM 7.4 mg/dl (8.6-10.4); GLUCOSE,RANDOM 81 mg/dL (65-105)
[2017-06-04 08:12] LABS: INR 2.8
[2017-06-04] MEDS: Multiple Vitamins Tab PO SCH (11:21)
[2017-06-05] MEDS: Pantoprazole 40 mg Susp UD PO SCH (05:28)
[2017-06-05 07:30] LABS: HEMATOCRIT 23.9 % (34.0-47.0); MEAN CELL VOLUME 94.3 fL (81.0-99.0); MEAN CORPUSCULAR HEMOGLOBIN 31.3 pg (27.0-31.0); MEAN CORPUSCULAR HGB CONC 33.2 g/dL (33.0-37.0); MEAN PLATELET VOLUME 9.6 fL (7.2-11.7); RED CELL DISTRIBUTION WIDTH 20.9 % (11.5-14.5); WHITE BLOOD COUNT 5.4 K/uL (4.8-10.8)
[2017-06-05 07:39] VITALS: O2SAT 97
[2017-06-05 07:54] LABS: CHLORIDE 101 mmol/L (98-107)
[2017-06-05 07:55] LABS: POTASSIUM 3.6 mmol/L (3.6-5.2); SODIUM 136 mmol/L (132-148)
[2017-06-05 07:57] LABS: ALB/GLOB RATIO 0.5 (1.0-2.1); AST/SGOT 43 U/L (14-36); BILIRUBIN,TOTAL 7.8 mg/dL (0.2-1.3); BLOOD UREA NITROGEN 6 mg/dL (7-17); CARBON DIOXIDE 23 mmol/L (22-30); GFR AFRICAN-AMERICAN > 60; TOTAL PROTEIN 6.3 g/dL (6.3-8.3)
[2017-06-05 07:58] LABS: ALKALINE PHOSPHATASE 182 U/L (38-126); ALT/SGPT 33 U/L (9-52); CALCIUM 7.3 mg/dl (8.6-10.4); GLUCOSE,RANDOM 101 mg/dL (65-105)
--- NOTE | 2017-06-05 08:48 | CP.PCM.PN ---
<Chery Arora - Last Filed: 06/05/17 08:50> Subjective - Date & Time of Evaluation Date of Evaluation: 06/05/17 Time of Evaluation: 07:50 - Subjective Subjective: PGY4 GI follow-up note Pt seen and examined bedside No over night events noted able to tolerate reg diet No other complaints at this time reporting 2-3 Bm daily, with soft and formed stool Wants to go home ambulating 12- Point ROS conducted, other than what was stated above, it is neg Objective - Vital Signs/Intake and Output Vital Signs (last 24 hours): Temp Pulse Resp BP Pulse Ox 98.2 F 86 20 118/65 97 06/05/17 07:35 06/05/17 07:35 06/05/17 07:35 06/05/17 07:35 06/05/17 07:35 Intake and Output: 06/05/17 06/05/17 06:59 18:59 Intake Total 150 Balance 150 - Medications Medications: Current Medications Chlordiazepoxide (Librium) 5 mg PO Q12 PRN PRN Reason: Anxiety Folic Acid (Folic Acid) 1 mg PO DAILY [facility] Last Admin: 06/04/17 11:23 Dose: 1 mg Furosemide (Lasix) 20 mg PO DAILY [facility] Last Admin: 06/04/17 11:22 Dose: 20 mg Gabapentin (Neurontin) 100 mg PO TID [facility] Last Admin: 06/04/17 17:12 Dose: 100 mg Lactulose (Enulose) 20 gm PO BID [facility] Last Admin: 06/04/17 17:12 Dose: 20 gm Multivitamins (Hexavitamin) 1 tab PO DAILY [facility] Last Admin: 06/04/17 11:21 Dose: 1 tab Pantoprazole Sodium (Protonix Susp) 40 mg PO 0600,1600 [facility] Last Admin: 06/05/17 05:28 Dose: 40 mg Propranolol HCl (Inderal) 10 mg PO TID [facility] Last Admin: 06/04/17 17:12 Dose: 10 mg Spironolactone (Aldactone) 25 mg PO DAILY [facility] Last Admin: 06/04/17 11:21 Dose: 25 mg Thiamine HCl (Vitamin B1 Tab) 100 mg PO DAILY [facility] Last Admin: 06/04/17 11:22 Dose: 100 mg - Labs Labs: 06/05/17 07:08 06/05/17 07:08 PT 34.6 SECONDS (9.7-12.2) H* 06/05/17 07:08 INR 3.0 06/05/17 07:08 APTT 76 SECONDS (21-34) H D 06/02/17 08:58 - Constitutional Appears: Non-toxic, No Acute Distress - Head Exam Head Exam: ATRAUMATIC, NORMOCEPHALIC - Eye Exam Eye Exam: Scleral icterus - ENT Exam ENT Exam: Mucous Membranes Moist, Normal Exam - Respiratory Exam Respiratory Exam: Clear to Ausculation Bilateral, NORMAL BREATHING PATTERN. absent: Rales, Rhonchi, Wheezes - Cardiovascular Exam Cardiovascular Exam: REGULAR RHYTHM, +S1, +S2 - GI/Abdominal Exam GI & Abdominal Exam: Soft, Normal Bowel Sounds, Organomegaly. absent: Firm, Guarding, Rigid, Rebound Additional comments: distended abdomen, no sig fluid wave appreciated - Extremities Exam Extremities Exam: Normal Inspection. absent: Pedal Edema - Neurological Exam Neurological Exam: Alert, Awake, Oriented x3 - Psychiatric Exam Psychiatric exam: Normal Affect, Normal Mood - Skin Skin Exam: Dry, Intact, Normal Color, Warm Assessment and Plan - Assessment and Plan (Free Text) Assessment: Patient is a 36yo female with PMHx significant for EtOH cirrhosis, EtOH abuse/ dependence who presented ot the ED with painless jaundice, anemia and for detox from EtOH -EtOH cirrhosis -Possibly superimposed EtOH hepatitis vs progression of underlying CLD -Pancytopenia - likely myelosuppresive effects of chronic EtOH, CLD -HE, resolved -EtOH abuse/dependence -EtOH withdrawal, resolving Plan: -Daily CBC, CMP, INR -hold on EGD for now -continue reg diet -Supportive measures -Encourage adherence to low Na diet -Continue propanolol 10mg TID, will titrate up as an oupt -EtOH abstinence -Awaiting transfer to [facility] in [place], [place]; accepted under Dr. Colbert ; spoke with transfer center, pt is next on their list -If pt is unable to get a bed at [place] today will consider discharge as per conversation with primary -No plan for steroid initiation at this time despite MDF>32; discussed with [facility] team - patient also has active UTI -continue abx for UTI -Continue Lactulose as ordered; titrate to 2-3Bm/day *MDF: >32 *MELD-Na: 06/03 30 D/W Dr. Rojas <Noe Rojas - Last Filed: 06/05/17 09:02> Objective - Vital Signs/Intake and Output Vital Signs (last 24 hours): Temp Pulse Resp BP Pulse Ox 98.2 F 86 20 118/65 97 06/05/17 07:35 06/05/17 07:35 06/05/17 07:35 06/05/17 07:35 06/05/17 07:35 Intake and Output: 06/05/17 06/05/17 06:59 18:59 Intake Total 150 Balance 150 - Medications Medications: Current Medications Chlordiazepoxide (Librium) 5 mg PO Q12 PRN PRN Reason: Anxiety Folic Acid (Folic Acid) 1 mg PO DAILY [facility] Last Admin: 06/04/17 11:23 Dose: 1 mg Furosemide (Lasix) 20 mg PO DAILY [facility] Last Admin: 06/04/17 11:22 Dose: 20 mg Gabapentin (Neurontin) 100 mg PO TID [facility] Last Admin: 06/04/17 17:12 Dose: 100 mg Lactulose (Enulose) 20 gm PO BID [facility] Last Admin: 06/04/17 17:12 Dose: 20 gm Multivitamins (Hexavitamin) 1 tab PO DAILY [facility] Last Admin: 06/04/17 11:21 Dose: 1 tab Pantoprazole Sodium (Protonix Susp) 40 mg PO 0600,1600 [facility] Last Admin: 06/05/17 05:28 Dose: 40 mg Propranolol HCl (Inderal) 10 mg PO TID [facility] Last Admin: 06/04/17 17:12 Dose: 10 mg Spironolactone (Aldactone) 25 mg PO DAILY [facility] Last Admin: 06/04/17 11:21 Dose: 25 mg Thiamine HCl (Vitamin B1 Tab) 100 mg PO DAILY [facility] Last Admin: 06/04/17 11:22 Dose: 100 mg - Labs Labs: 06/05/17 07:08 06/05/17 07:08 PT 34.6 SECONDS (9.7-12.2) H* 06/05/17 07:08 INR 3.0 06/05/17 07:08 APTT 76 SECONDS (21-34) H D 06/02/17 08:58 Attending/Attestation - Attestation I have personally seen and examined this patient.: Yes I have fully participated in the care of the patient.: Yes I have reviewed all pertinent clinical information, including history, physical exam and plan: Yes Notes (Text): 06/05/17 08:58 I have seen and examined patient with GI fellow. She is seen ambulating in room , appears quite comfortable. No acute events overnight, she denies abdominal pain, nausea, vomiting, fever/chills. Tolerating PO diet without difficulty. Review of vitals from today are normal. ETOH decompensated cirrhosis Acute ETOH hepatitis Altered mental status, hepatic encephalopathy Anemia UTI - H/H stable, continue to monitor - Diet as tolerated - Continue with B-fabby therapy given presence of varices on imaging, monitor heart rate - Continue with lactulose therapy, titrate so patient has 2-3 bowel movements daily - Continue with antibiotic therapy - Patient awaiting transfer to [facility] for potential enrollment in clinical trial , however if transfer is not completed today would suggest hospital discharge and subsequent outpatient follow up. Case discussed with Dr. Ivory.
[2017-06-05] MEDS: Multiple Vitamins Tab PO SCH (09:54)
--- NOTE | 2017-06-05 15:47 | CP.PCM.PN ---
Subjective - Date & Time of Evaluation Date of Evaluation: 06/05/17 Time of Evaluation: 15:47 - Subjective Subjective: DISCUSSED DISPOSITION WITH DR. WILKINS WHO SAW PT THIS MORNING AND PT IS CLEARED FOR D/C HOME TODAY. THERE IS STILL NO BED AT [facility] AND GI WILL NOT BE DOING ANY FURTHER TREATMENT DURING THIS HOSPITALIZATION. RX GIVEN FOR MEDS STARTED HERE. PT TO SEE DR. LALA IN THE OFFICE THIS WEEK. NO FURTHER ORDERS. Objective - Vital Signs/Intake and Output Vital Signs (last 24 hours): Temp Pulse Resp BP Pulse Ox 98.2 F 65 20 112/71 97 06/05/17 07:35 06/05/17 14:06 06/05/17 07:35 06/05/17 14:06 06/05/17 07:35 Intake and Output: 06/05/17 06/05/17 06:59 18:59 Intake Total 150 480 Balance 150 480 - Medications Medications: Current Medications Chlordiazepoxide (Librium) 5 mg PO Q12 PRN PRN Reason: Anxiety Folic Acid (Folic Acid) 1 mg PO DAILY [facility] Last Admin: 06/05/17 09:55 Dose: 1 mg Furosemide (Lasix) 20 mg PO DAILY [facility] Last Admin: 06/05/17 09:58 Dose: 20 mg Gabapentin (Neurontin) 100 mg PO TID [facility] Last Admin: 06/05/17 14:02 Dose: 100 mg Lactulose (Enulose) 20 gm PO BID [facility] Last Admin: 06/05/17 09:55 Dose: 20 gm Multivitamins (Hexavitamin) 1 tab PO DAILY [facility] Last Admin: 06/05/17 09:54 Dose: 1 tab Pantoprazole Sodium (Protonix Susp) 40 mg PO 0600,1600 [facility] Last Admin: 06/05/17 05:28 Dose: 40 mg Propranolol HCl (Inderal) 10 mg PO TID [facility] Last Admin: 06/05/17 14:02 Dose: 10 mg Spironolactone (Aldactone) 25 mg PO DAILY [facility] Last Admin: 06/05/17 09:55 Dose: 25 mg Thiamine HCl (Vitamin B1 Tab) 100 mg PO DAILY [facility] Last Admin: 06/05/17 09:55 Dose: 100 mg - Labs Labs: 06/05/17 07:08 06/05/17 07:08 PT 34.6 SECONDS (9.7-12.2) H* 06/05/17 07:08 INR 3.0 06/05/17 07:08 APTT 76 SECONDS (21-34) H D 06/02/17 08:58
[2017-06-05 17:00] VITALS: BP 127/76; PULSE 76; TEMP 98.3
--- NOTE | 2017-06-06 20:53 | CP.PCM.PN ---
Subjective - Date & Time of Evaluation Date of Evaluation: 05/31/17 Time of Evaluation: 20:53 - Subjective Subjective: This is a blood transfusion. Currently doing well. Leg swelling noted. Tremor noted. Vital signs stable. Chest good air entry bilaterally regular heart sound nontender abdomen Assessment and a condition: 36-year-old female with history of alcoholic hepatitis, or colic liver disease and the possible liver cirrhosis anemia and GA bleed. Currently doing okay. Monitor the hemoglobin. GI consult and will follow the patient Objective - Vital Signs/Intake and Output Vital Signs (last 24 hours): Temp Pulse Resp BP Pulse Ox 98.3 F 76 20 127/76 97 06/05/17 15:00 06/05/17 15:00 06/05/17 15:00 06/05/17 15:00 06/05/17 15:00 - Labs Labs: 06/05/17 07:08 06/05/17 07:08 PT 34.6 SECONDS (9.7-12.2) H* 06/05/17 07:08 INR 3.0 06/05/17 07:08 APTT 76 SECONDS (21-34) H D 06/02/17 08:58
--- NOTE | 2017-06-06 20:57 | CP.PCM.DIS ---
Provider - Provider Date of Admission: 05/29/17 17:51 Attending physician: Dede Wilkins MD Time Spent in preparation of Discharge (in minutes): 45 Hospital Course - Lab Results Lab Results: Micro Results 05/31/17 20:55 Blood Blood Culture - Preliminary NO GROWTH AFTER 4 DAYS 05/31/17 20:55 Blood Blood Culture - Preliminary NO GROWTH AFTER 4 DAYS 05/31/17 14:00 Urine Urine Culture - Final Escherichia Coli Most Recent Lab Values WBC 5.4 K/uL (4.8-10.8) 06/05/17 07:08 RBC 2.53 Mil/uL (3.80-5.20) L 06/05/17 07:08 Hgb 7.9 g/dL (11.0-16.0) L 06/05/17 07:08 Hct 23.9 % (34.0-47.0) L 06/05/17 07:08 MCV 94.3 fL (81.0-99.0) 06/05/17 07:08 MCH 31.3 pg (27.0-31.0) H 06/05/17 07:08 MCHC 33.2 g/dL (33.0-37.0) 06/05/17 07:08 RDW 20.9 % (11.5-14.5) H 06/05/17 07:08 Plt Count 147 K/uL (130-400) 06/05/17 07:08 MPV 9.6 fL (7.2-11.7) 06/05/17 07:08 Neut % (Auto) 48.6 % (50.0-75.0) L 06/04/17 07:45 Lymph % (Auto) 36.7 % (20.0-40.0) 06/04/17 07:45 [place] % (Auto) 12.4 % (0.0-10.0) H 06/04/17 07:45 Eos % (Auto) 1.7 % (0.0-4.0) 06/04/17 07:45 Baso % (Auto) 0.6 % (0.0-2.0) 06/04/17 07:45 Neut # 2.1 K/uL (1.8-7.0) 06/04/17 07:45 Lymph # 1.6 K/uL (1.0-4.3) 06/04/17 07:45 [place] # 0.5 K/uL (0.0-0.8) 06/04/17 07:45 Eos # 0.1 K/uL (0.0-0.7) 06/04/17 07:45 Baso # 0.0 K/uL (0.0-0.2) 06/04/17 07:45 Differential Comment 06/03/17 08:24 PT 34.6 SECONDS (9.7-12.2) H* 06/05/17 07:08 INR 3.0 06/05/17 07:08 APTT 76 SECONDS (21-34) H D 06/02/17 08:58 Sodium 136 mmol/L (132-148) 06/05/17 07:08 Potassium 3.6 mmol/L (3.6-5.2) 06/05/17 07:08 Chloride 101 mmol/L (98-107) 06/05/17 07:08 Carbon Dioxide 23 mmol/L (22-30) 06/05/17 07:08 Anion Gap 16 (10-20) 06/05/17 07:08 BUN 6 mg/dL (7-17) L 06/05/17 07:08 Creatinine 0.5 MG/DL (0.7-1.2) L 06/05/17 07:08 Est GFR ( Amer) > 60 06/05/17 07:08 Est GFR (Non-Af Amer) > 60 06/05/17 07:08 Random Glucose 101 mg/dL (65-105) 06/05/17 07:08 Calcium 7.3 mg/dl (8.6-10.4) L 06/05/17 07:08 Total Bilirubin 7.8 mg/dL (0.2-1.3) H 06/05/17 07:08 Direct Bilirubin 3.3 mg/dL (0.0-0.4) H 05/31/17 08:32 AST 43 U/L (14-36) H 06/05/17 07:08 ALT 33 U/L (9-52) 06/05/17 07:08 Alkaline Phosphatase 182 U/L (38-126) H D 06/05/17 07:08 Total Protein 6.3 g/dL (6.3-8.3) 06/05/17 07:08 Albumin 2.1 g/dL (3.5-5.0) L 06/05/17 07:08 Globulin 4.2 gm/dL (2.2-3.9) H 06/05/17 07:08 Albumin/Globulin Ratio 0.5 (1.0-2.1) L 06/05/17 07:08 Urine Color [place] (YELLOW) 06/02/17 07:19 Urine Clarity Hazy (Clear) 06/02/17 07:19 Urine pH 7.0 (5.0-8.0) 06/02/17 07:19 Ur Specific [place] 1.005 (1.003-1.030) 06/02/17 07:19 Urine Protein Negative mg/dL (NEGATIVE) 06/02/17 07:19 Urine Glucose (UA) Normal mg/dL (Normal) 06/02/17 07:19 Urine Ketones Negative mg/dL (NEGATIVE) 06/02/17 07:19 Urine Blood 1+ (NEGATIVE) H 06/02/17 07:19 Urine Nitrate Negative (NEGATIVE) 06/02/17 07:19 Urine Bilirubin Negative (NEGATIVE) 06/02/17 07:19 Urine Urobilinogen 4.0 mg/dL (0.2-1.0) H 06/02/17 07:19 Ur Leukocyte Esterase Trace [place]/uL (Negative) 06/02/17 07:19 Urine WBC (Auto) < 1 /hpf (0-5) 06/02/17 07:19 Urine RBC (Auto) 5 /hpf (0-3) H 06/02/17 07:19 Ur Squamous Epith Cells 1 /hpf (0-5) 06/02/17 07:19 Amorphous Sediment Rare /ul (<OCC) H 06/02/17 07:19 Urine Bacteria Rare (<OCC) 06/02/17 07:19 Urine HCG, Qual Negative (NEGATIVE) 05/29/17 17:43 Stool Occult Blood Negative (NEGATIVE) 05/29/17 18:34 IgG 2789.9 mg/dL (700.0-1600.0) H 05/30/17 14:29 IgA 1256.4 mg/dL (70.0-400.0) H 05/30/17 14: IgM 192.3 mg/dL (40.0-230.0) 05/30/17 14:29 LEONIDES 6 Profile Negative (NEGATIVE) 05/30/17 14:29 Anti-Mitochondrial Ab Negative (Negative) 05/31/17 11:45 Actin IgG Antibody <20 U (<20) 05/31/17 11:45 Liver/Kid Microsomes Ab <=20.0 U (<=20.0) 05/31/17 11:45 Hepatitis A IgM Ab Negative (NEGATIVE) 05/30/17 14:29 Hep Bs Antigen Negative (NEGATIVE) 05/30/17 14:29 Hep B Core IgM Ab Negative (NEGATIVE) 05/30/17 14:29 Hepatitis C Antibody Negative (NEGATIVE) 05/30/17 14:29 Blood Type B POSITIVE 05/29/17 17:19 Antibody Screen Negative 05/29/17 17:19 - Hospital Course Hospital Course: History present illness: 36 year-old female with h/o eoth and liver disease and anemia jaundice and withdrawl. Patient's mom who brought the patient was telling that she is drinking alcohol and at times she gets agitated and the patient came to the office for the evaluation of alcohol withdrawal. she recently in the hospital and did well and off etoh for few weeks but started to drink again she is drinking daily now c/o weakness no blood in stool no chest pain no palpitation. Past medical history: Liver disease, alcoholism, anemia, smoking Surgical history: None Personal history: Continues to drink alcohol. Denies any drugs, but smoking noted almost one pack per day Review of systems: Denies any headache, no visual symptoms, complaining of weakness, tiredness, chest tightness, sometimes shortness of breath, also complaining of some abdomen pain, constipation present, leg swelling also noted Family history: Father had heart disease, recently had a stent, mother is has anxiety, siblings 1 brother and one sister they are healthy, patient has 2 kids and they're healthy Social history: Patient is currently drinking alcohol almost to 2 cans of beer daily for 15 years, in the weekends she drinks even more, for the last 2 weeks that she's not drinking, she used to smoke, currently she smoking 2 cigarettes per day, 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 No urinary discomfort. Leg swelling noted. On examination: Patient is having conjunctival sclera icterus changes, anemia changes the looking conjunctiva, more face noted, bilateral pedal edema, abdominal swelling , abdominal wall swelling noted. Chest bilateral good air entry, CVS regular heart sound, On admission labs reviewed in Patient had a severe anemia, coagulopathy. Patient received at least 2 units of blood transfusion. Vitamin K supplementation was given. Patient was seen by dining room busser. Initially it was decided that the patient will be benefited by a going to transplant center for possible alcoholic hepatitis trial study. But as there was no bed available, the patient is clinically stable otherwise. And GI cleared the patient for discharge. Meanwhile endoscopy was attempted but the was not done. As there was no active bleeding it was decided not to do the procedure at this time. Patient is clinical stable otherwise. Patient will be discharged home today. She will follow-up as an outpatient. I explained to the patient advanced alcoholic, and advised her to avoid alcohol at any cost. Medications the reviewed. Spoke to the family. Discharge Exam - Head Exam Head Exam: ATRAUMATIC, NORMOCEPHALIC Discharge Plan - Discharge Medications Prescriptions: Folic Acid 1 mg PO DAILY #30 tab Multivitamins [Hexavitamin] 1 tab PO DAILY #30 tab Propranolol [Inderal] 10 mg PO TID #90 tab Thiamine [Vitamin B1 Tab] 100 mg PO DAILY #30 tab - Follow Up Plan Condition: FAIR Disposition: HOME/ ROUTINE Instructions: Anemia (DC) Additional Instructions: FOR FURTHER QUESTIONS REGARDING HOSPITALIZATION, CONTACT DR. WILKINS OR DR. OSBORN. FOLLOW UP WITH DR. WILKINS IN THE OFFICE ON SUNDAY ALREADY SCHEDULED. TAKE ALL MEDICATIONS EXACTLY PRESCRIBED. FOLLOW UP WITH THE STOMACH DOCTOR IN THE OFFICE WITHIN 2 WEEKS. Referrals: Tony Kraus MD [Staff Provider] - Noe Rojas MD [Staff Provider] - Dede Wilkins MD [Staff Provider] -
== END 2017-06-05 16:00 | disposition home or self-care (01) | DRG 557 ==
LOC: C.ER 16:38 → C.3T 17:51
PROVIDERS: ADMIT Internal Medicine; ATTEND Internal Medicine
PROC: 30233N1 Transfusion of Nonautologous Red Blood Cells into Peripheral Vein, Percutaneous Approach (ICD-10-PCS; principal; 2017-05-29)
PROC: 30233R1 Transfusion of Nonautologous Platelets into Peripheral Vein, Percutaneous Approach (ICD-10-PCS; 2017-06-03)
DX: K70.30 Alcoholic cirrhosis of liver without ascites (principal); K72.90 Hepatic failure, unspecified without coma; K70.10 Alcoholic hepatitis without ascites; D61.818 Other pancytopenia; D68.4 Acquired coagulation factor deficiency; F10.230 Alcohol dependence with withdrawal, uncomplicated; N39.0 Urinary tract infection, site not specified; B96.20 Unspecified Escherichia coli [E. coli] as the cause of diseases classified elsewhere; K76.6 Portal hypertension; K64.9 Unspecified hemorrhoids; F17.210 Nicotine dependence, cigarettes, uncomplicated; T80.89XA Other complications following infusion, transfusion and therapeutic injection, initial encounter; L29.8 Other pruritus; Z53.09 Procedure and treatment not carried out because of other contraindication

== ENCOUNTER 2017-12-25 19:10 | Inpatient (IN) | payer MEDICAID ==
[2017-12-25 23:41] LABS: LYMPH # 1.2 K/uL (1.0-4.3); MONO # 0.4 K/uL (0.0-0.8); NEUT # 1.5 K/uL (1.8-7.0); RBC 1.78 Mil/uL (3.80-5.20); WHITE BLOOD COUNT 3.1 K/uL (4.8-10.8)
[2017-12-25 23:47] LABS: INR 2.9
[2017-12-25 23:48] LABS: BASO % 0.6 % (0.0-2.0); EOS % 1.3 % (0.0-4.0); LYMPH % 37.4 % (20.0-40.0); MEAN CELL VOLUME 101.6 fL (81.0-99.0); MEAN CORPUSCULAR HEMOGLOBIN 33.7 pg (27.0-31.0); MEAN CORPUSCULAR HGB CONC 33.2 g/dL (33.0-37.0); MEAN PLATELET VOLUME 9.8 fL (7.2-11.7); MONO % 12.7 % (0.0-10.0); NRBC % 0.2 % (0.0-2.0); RED CELL DISTRIBUTION WIDTH 19.7 % (11.5-14.5)
[2017-12-25 23:59] LABS: PROTHROMBIN TIME 33.7 SECONDS (9.7-12.2)
--- NOTE | 2017-12-26 00:04 | CT ---
EXAM: CT Head Without Intravenous Contrast EXAM DATE/TIME: 12/25/2017 10:49 PM CLINICAL HISTORY: 36 years old, female; Injury or trauma; Fall; Initial encounter; Abrasion; Head, generalized; Additional info: S/P fall R/O ich and FX TECHNIQUE: Axial computed tomography images of the head/brain without intravenous contrast. All CT scans at this facility use one or more dose reduction techniques, viz.: automated exposure control; ma/kV adjustment per patient size (including targeted exams where dose is matched to indication; i.e. head); or iterative reconstruction technique. COMPARISON: Prior images are not available for review. FINDINGS: Brain: There is prominence of sulci, gyri and ventricles greater than expected for patient of this age.. There is no midline shift. There are no intra-axial or extra axial mass lesions or areas of hemorrhage. Steele-white differentiation is maintained. Ventricles: See above. Bony structures: Cranial vault is intact. Soft tissues: unremarkable Sinuses: There is no acute sinusitis. Ears and mastoids: Middle ears and mastoids unremarkable. Orbits: Orbital contents are unremarkable. IMPRESSION: No acute intracranial abnormality
[2017-12-26 00:05] LABS: BARBITURATES, UR NEGATIVE (NEGATIVE); BENZODIAZEPINES, UR NEGATIVE (NEGATIVE); OPIATES, UR NEGATIVE (NEGATIVE); PHENCYCLIDINE, UR NEGATIVE (NEGATIVE)
[2017-12-26] MEDS ORDERED: Pantoprazole 80 MG in Sodium Chloride 0.9% 100 ML IVP SCH (00:15)
--- NOTE | 2017-12-26 00:16 | CP.PCM.HP ---
History of Present Illness - History of Present Illness History of Present Illness: Chief complaint: Left hip pain HPI: 36-year-old female with a history of alcoholic abuse, liver cirrhosis and esophageal varices. Patient came to the emergency room after she was slipped and fall from the chair , injury to the left hip. Patient now receiving blood transfusion. She is more awake and responding. Complaint of pain in the left hip. She did not remember how that happened. She continues to drink beers daily, but she does not remember exactly what happened. Currently having no headache. But complaining of abdominal pain. She denies any chest pain. No recent cold or cough. She does not have any nausea. No vomiting noted. Complaint of no bleeding Past medical history: Liver disease, alcoholism, anemia, smoking Surgical history: None Personal history: Continues to drink alcohol. Denies any drugs, but smoking noted almost one pack per day Review of systems: Denies any headache, no visual symptoms, complaining of weakness, tiredness, chest tightness, sometimes shortness of breath, also complaining of some abdomen pain, constipation present, leg swelling also noted patient complaining of left hip pain following a fall yesterday Family history: Father had heart disease, recently had a stent, mother is has anxiety, siblings 1 brother and one sister they are healthy, patient has 2 kids and they're healthy Social history: Patient is currently drinking alcohol almost to 2 cans of beer daily for 15 years, in the weekends she drinks even more, for the last 2 weeks that she's not drinking, she used to smoke, currently she smoking 2 cigarettes per day, 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 Chest bilateral good air entry, CVS regular heart sound, pedal edema noted patient's labs reviewed. Severe anemia noted Elevated INR noted Patient also has fracture of the left pubic rami fracture noted Assessment/recommendation: patient had a fall, and injury. Pelvic ring fracture noted. Nondisplaced. Conservative treatment 35-year-old female now admitted with the severe anemia but no active bleeding noted at this time. coagulopathy present secondary to alcohol liver disease Low albumin secondary to liver disease. Patient will need a transfusion. Protonix. Alcoholic detoxification, psychotic evaluation, benzodiazepines. Patient's overall prognosis is poor. Spoke to the family in details. IV fluids with the vitamin thiamine and folate again patient was explained. We will watch DTs Present on Admission - Present on Admission Any Indicators Present on Admission: No History of DVT/PE: No History of Uncontrolled Diabetes: No Urinary Catheter: No Decubitus Ulcer Present: No Past Patient History - Infectious Disease Hx of Infectious Diseases: None - Past Medical History & Family History Past Medical History?: Yes - Past Social History Smoking Status: Light Smoker < 10 Cigarettes Daily - CARDIAC Hx Cardiac Disorders: No - PULMONARY Hx Respiratory Disorders: No - NEUROLOGICAL Hx Neurological Disorder: No - HEENT Hx HEENT Problems: No - RENAL Hx Chronic Kidney Disease: No - ENDOCRINE/METABOLIC Hx Endocrine Disorders: No - HEMATOLOGICAL/ONCOLOGICAL Hx Anemia: Yes Hx Cirrhosis: Yes - INTEGUMENTARY Hx Dermatological Problems: No Other/Comment: jaundice - MUSCULOSKELETAL/RHEUMATOLOGICAL Hx Falls: No - GASTROINTESTINAL Hx Gastrointestinal Disorders: No - GENITOURINARY/GYNECOLOGICAL Hx Genitourinary Disorders: No - PSYCHIATRIC Hx Psychophysiologic Disorder: No Hx Substance Use: No - SURGICAL HISTORY Hx Surgeries: No - ANESTHESIA Hx Anesthesia: No Meds Allergies/Adverse Reactions: Allergies Allergy/AdvReac Type Severity Reaction Status Date / Time No Known Allergies Allergy Verified 12/25/17 20:51 Results - Vital Signs Recent Vital Signs: Last Vital Signs Temp 98.3 F 12/25/17 20:52 Pulse 96 H 12/25/17 20:52 Resp 18 12/25/17 20:52 BP 137/71 12/25/17 20:52 Pulse Ox 100 12/25/17 20:52 - Labs Result Diagrams: 12/26/17 08:42 12/26/17 08:42 Labs: Laboratory Results - last 24 hr 12/25/17 12/25/17 12/25/17 22:48 22:48 23:35 WBC 3.1 L RBC 1.78 L Hgb 6.0 L* Hct 18.1 L MCV 101.6 H D MCH 33.7 H MCHC 33.2 RDW 19.7 H Plt Count 68 L D MPV 9.8 Neut % (Auto) 48.0 L Lymph % (Auto) 37.4 [place] % (Auto) 12.7 H Eos % (Auto) 1.3 Baso % (Auto) 0.6 Neut # (Auto) 1.5 L Lymph # (Auto) 1.2 [place] # (Auto) 0.4 Eos # (Auto) 0.0 Baso # (Auto) 0.0 PT 33.7 H* INR 2.9 APTT 57 H [place] Urine Opiates Screen Negative Urine Methadone Screen Negative Ur Barbiturates Screen Negative Ur Phencyclidine Scrn Negative Ur Amphetamines Screen Negative U Benzodiazepines Scrn Negative U Oth Cocaine Metabols Negative U Cannabinoids Screen Negative Blood Type 12/25/17 12/25/17 23:35 23:35 WBC RBC Hgb Hct MCV MCH MCHC RDW Plt Count MPV Neut % (Auto) Lymph % (Auto) [place] % (Auto) Eos % (Auto) Baso % (Auto) Neut # (Auto) Lymph # (Auto) [place] # (Auto) Eos # (Auto) Baso # (Auto) PT INR APTT [place] 91 H D Urine Opiates Screen Urine Methadone Screen Ur Barbiturates Screen Ur Phencyclidine Scrn Ur Amphetamines Screen U Benzodiazepines Scrn U Oth Cocaine Metabols U Cannabinoids Screen Blood Type B POSITIVE
[2017-12-26 00:25] LABS: ALT/SGPT 32 U/L (9-52); AST/SGOT 68 U/L (14-36); BLOOD UREA NITROGEN 4 mg/dL (7-17); CALCIUM 7.5 mg/dl (8.6-10.4); GFR AFRICAN-AMERICAN > 60; GFR NON-AFRICAN AMERICAN > 60; LIPASE 134 U/L (23-300)
--- NOTE | 2017-12-26 00:27 | C.PDOC ---
History Of Present Illness 36 y/o female, whose PMHx includes alcohol abuse and liver cirrhosis, presents to the ED for evaluation after she sustained a fall two days ago. Patient states she was standing on a chair when she slipped. She now complains of left hip and left ankle pain. She denies LOC, head injury, or any other pain. Additional history limited secondary to patient being a poor historian. Time Seen by Provider: 12/25/17 21:18 Chief Complaint (Nursing): Back Pain History Per: Patient History/Exam Limitations: other (poor historian ) Onset/Duration Of Symptoms: Days (2) Current Symptoms Are (Timing): Still Present Additional History Per: Patient Past Medical History Reviewed: Historical Data, Nursing Documentation, Vital Signs Vital Signs: Last Vital Signs Temp 98.3 F 12/27/17 10:15 Pulse 90 12/27/17 10:15 Resp 18 12/27/17 10:15 BP 138/75 12/27/17 10:15 Pulse Ox 98 12/27/17 08:15 - Medical History PMH: Anemia Denies: Chronic Kidney Disease Surgical History: No Surg Hx - [facility] Procedures CLOSED ENDOSCOPIC BIOPSY OF LARGE INTESTINE (02/01/15) DETOXIFICATION SERVICES FOR SUBSTANCE ABUSE TREATMENT (08/24/16) GROUP EVP SALES FOR SUBSTANCE ABUSE TREATMENT, PSYCHOEDUCATION (08/24/16) PACKED CELL TRANSFUSION (02/01/15) TRANSFUSE NONAUT PLATELETS IN PERIPH VEIN, PERC (05/29/17) TRANSFUSE NONAUT RED BLOOD CELLS IN PERIPH VEIN, PERC (05/29/17) Family History: States: Unknown Family Hx - Social History Hx Tobacco Use: Yes Hx Alcohol Use: Yes Hx Substance Use: No - Immunization History Hx Tetanus Toxoid Vaccination: No Hx Influenza Vaccination: No Hx Pneumococcal Vaccination: No Review Of Systems Musculoskeletal: Positive for: Other (left hop and left ankle pain ) Neurological: Negative for: Other (LOC, head injury ) Physical Exam - Physical Exam Appears: Non-toxic, No Acute Distress Skin: Warm, Dry, Jaundice Head: Atraumatic, Normacephalic Eye(s): bilateral: Normal Inspection Oral Mucosa: Moist Neck: Supple Chest: Symmetrical, No Deformity, No Tenderness Cardiovascular: Rhythm Regular, Murmur (systolic ) Respiratory: Normal Breath Sounds, No Rales, No Rhonchi, No Wheezing Gastrointestinal/Abdominal: Soft, No Tenderness, No Guarding, No Rebound Extremity: Normal ROM, Tenderness (left ankle ), Capillary Refill (less than 2 seconds ), Swelling (to bilateral lower extremities, left>right ) Extremity: Left: Other (tenderness and ecchymosis to left hip ) Neurological/Psych: Oriented x3, Normal Speech, Normal Cognition, Normal Sensation ED Course And Treatment - Laboratory Results Result Diagrams: 12/27/17 08:58 12/27/17 08:58 O2 Sat by Pulse Oximetry: 100 (on RA) Pulse Ox Interpretation: Normal Medical Decision Making Medical Decision Making: progress: CT Head, ankle XR, hip XR and bloodwork ordered and reviewed. Case discussed with Dr. Ivory, who agrees to admit patient for near syncope. Disposition - Disposition Disposition: HOSPITALIZED Disposition Time: 00:30 Condition: FAIR - Clinical Impression Clinical Impression: Left ischial fracture, Anemia, Coagulopathy - Scribe Statement The provider has reviewed the documentation as recorded by the Scribe (Nahomi Arora) Provider Attestation: All medical record entries made by the Scribe were at my direction and personally dictated by me. I have reviewed the chart and agree that the record accurately reflects my personal performance of the history, physical exam, medical decision making, and the department course for this patient. I have also personally directed, reviewed, and agree with the discharge instructions and disposition.
[2017-12-26] MEDS ORDERED: Potassium Chloride 20 mEq ER Tab PO STA ×2 (00:37→17:07)
[2017-12-26 00:45] LABS: B-TYPE NATRIURETIC PEPTIDE 146 pg/mL (0-450)
[2017-12-26 00:58] LABS: ALB/GLOB RATIO 0.5 (1.0-2.1); ALBUMIN 2.5 g/dL (3.5-5.0)
[2017-12-26] MEDS ORDERED: Potassium Chloride 10 mEq ER Tab PO ONE (00:59)
[2017-12-26] MEDS: Pantoprazole 80 MG in Sodium Chloride 0.9% 100 ML IVP SCH ×2 (01:38→11:00)
[2017-12-26] MEDS ORDERED: Iodixanol 320 MG/ML 100 ML BOTTLE IV ONE (02:04)
--- NOTE | 2017-12-26 08:19 | CT ---
CT abdomen and pelvis History: Fall. Left ischial fracture. Comparison: CT scan dated 05/30/2017 Technique: Multiple contiguous axial images were performed through the abdomen and pelvis with the use of intravenous contrast. Subsequently, sagittal and coronal reformatted images were obtained. This CT exam was performed using one or more of the following dose reduction techniques: Automated exposure control, adjustment of the mA and/or kV according to patient size, and/or use of iterative reconstruction technique. Findings: Lung bases are grossly preserved. Nodular and cirrhotic contour of the liver. Nonspecific heterogeneous low-attenuation foci at the dome of the liver. Gallbladder wall thickening which may be seen with cirrhosis. Clinical correlation. Pancreas preserved. Prominent spleen. Adrenal glands appear preserved. Kidneys and ureters appear preserved. Upper abdominal bowel appears preserved. No findings to suggest acute appendicitis. Urinary bladder wall is mildly prominent in thickness which may be secondary to decompressed state and or cystitis. Fracture deformities of the anterior superior left pubic bone near the pubic symphysis as well as the mid left inferior pubic bone. Loss of height of the superior endplate of the T11 vertebral body suggestive for a mild compression fracture. This was noted on the prior study dated 05/30/2017. Diffuse subcutaneous edema concerning for anasarca. Numerous collateral veins in the abdomen consistent portal vein hypertension. Impression: Cirrhotic liver. Gallbladder wall thickening which may be seen with cirrhosis. Clinical correlation. Fracture deformities of the anterior superior left pubic bone near the pubic symphysis as well as the mid left inferior pubic bone. Loss of height of the superior endplate of the T11 vertebral body suggestive for a mild compression fracture. This was noted on the prior study dated 05/30/2017. Bladder wall is mildly prominent in thickness which may be secondary to a decompressed state or cystitis. Clinical correlation. Diffuse subcutaneous edema concerning for anasarca. These findings were preliminarily reported at 3:29 a.m. on 12/26/[address] Jerson Ballard from [facility].
[2017-12-26 08:48] LABS: BASO % 0.5 % (0.0-2.0); HEMOGLOBIN 6.9 g/dL (11.0-16.0); LYMPH # 1.3 K/uL (1.0-4.3); MEAN CORPUSCULAR HEMOGLOBIN 32.2 pg (27.0-31.0); MEAN CORPUSCULAR HGB CONC 33.6 g/dL (33.0-37.0); MEAN PLATELET VOLUME 9.8 fL (7.2-11.7); MONO # 0.4 K/uL (0.0-0.8); MONO % 10.9 % (0.0-10.0); NEUT # 1.7 K/uL (1.8-7.0); NEUT % 49.6 % (50.0-75.0); NRBC % 0.1 % (0.0-2.0); RBC 2.13 Mil/uL (3.80-5.20); RED CELL DISTRIBUTION WIDTH 22.8 % (11.5-14.5); WHITE BLOOD COUNT 3.5 K/uL (4.8-10.8)
[2017-12-26 08:49] LABS: MEAN CELL VOLUME 95.7 fL (81.0-99.0)
[2017-12-26 08:55] LABS: INR 2.4; PROTHROMBIN TIME 27.6 SECONDS (9.7-12.2)
[2017-12-26 09:13] LABS: ALB/GLOB RATIO 0.5 (1.0-2.1); ALBUMIN 2.4 g/dL (3.5-5.0); ALT/SGPT 25 U/L (9-52); AST/SGOT 61 U/L (14-36); BLOOD UREA NITROGEN 3 mg/dL (7-17); CALCIUM 7.3 mg/dl (8.6-10.4); GFR AFRICAN-AMERICAN > 60; GFR NON-AFRICAN AMERICAN > 60
--- NOTE | 2017-12-26 10:25 | RAD ---
PROCEDURE: Left Ankle Radiographs. HISTORY: Rule out fracture COMPARISON: None FINDINGS: BONES: No evidence of acute displaced fracture nor dislocation. Talar dome and remaining osseous structures intact. JOINTS: Ankle mortise maintained. No significant osteoarthritis. SOFT TISSUES: Moderate to fairly significant diffuse soft tissue swelling medial greater than lateral. Infiltration changes extend proximally into the subcutaneous tissues of the distal lower extremity. OTHER FINDINGS: No radiopaque foreign bodies IMPRESSION: Moderate to significant soft tissue swelling medial greater than lateral with infiltration changes seen extending proximally into the subcutaneous tissues of the lower extremity. .
--- NOTE | 2017-12-26 10:31 | CP.PCM.CON ---
<Bal Wahl - Last Filed: 12/26/17 15:57> History of Present Illness - History of Present Illness History of Present Illness: PGY5 GI Fellow Consult Note Patient is a 36yo female with PMHx significant for decompensated EtOH cirrhosis c/b HE, jaundice and varices (on CT), ongoing EtOH abuse/dependence, alcoholic hepatitis, pancytopenia who presented to the ED brought in by her mother for acute intoxication and recent fall. The patient is a poor historian. States that she fell some time last week and has noted progressively worsening LLE pain and swelling since, prompting her to be evaluated in the ED. On arrival, the patient was visibly jaundiced and lab work revealed multiple abnormalities including pancytopenia with HGB 6, hyperbilirubinemia (11), multiple electrolyte disturbances, coagulopathy (2.9). Denies any pain or discomfort aside from her LLE. No recent hematochezia, melena, nausea, vomiting, hematemesis, fever, chills, abdominal distention. She admits to ongoing EtOH use to "help her sleep" as she has not be able to fall asleep at night for several months. Last drink was just prior to arrival. The patient was last seen in June 2017 for similar issues and did not follow up with any providers after hospitalization. Per her mother's account, she was sober for a matter of weeks before she again started drinking. Has not completed/attempted any formal rehabilitation. Nonadherent with outpatient medical therapy. PMHx: See HPI PSHx: Discussed with patient and denies any prior surgeries FHx: Discussed with patient and denies any significant family history Social Ongoing EtOH abuse with last drink on day of arrival (12/25/17), +tobacco use daily, denies illicit drug use Endo: 02/2015 - EGD - gastritis, hiatal hernia, portal hypertensive gastropathy 02/2015 - Colon - 1 sigmoid tubular adenoma removed, large internal/external hemorrhoids 12 system ROS performed and negative except where stated Past Patient History - Infectious Disease Hx of Infectious Diseases: None - Past Medical History & Family History Past Medical History?: Yes - Past Social History Smoking Status: Light Smoker < 10 Cigarettes Daily - CARDIAC Hx Cardiac Disorders: No - PULMONARY Hx Respiratory Disorders: No - NEUROLOGICAL Hx Neurological Disorder: No - HEENT Hx HEENT Problems: No - RENAL Hx Chronic Kidney Disease: No - ENDOCRINE/METABOLIC Hx Endocrine Disorders: No - HEMATOLOGICAL/ONCOLOGICAL Hx Anemia: Yes - INTEGUMENTARY Hx Dermatological Problems: No Other/Comment: jaundice - MUSCULOSKELETAL/RHEUMATOLOGICAL Hx Falls: No - GASTROINTESTINAL Hx Gastrointestinal Disorders: No - GENITOURINARY/GYNECOLOGICAL Hx Genitourinary Disorders: No - PSYCHIATRIC Hx Substance Use: No - SURGICAL HISTORY Hx Surgeries: No - ANESTHESIA Hx Anesthesia: No Meds Allergies/Adverse Reactions: Allergies Allergy/AdvReac Type Severity Reaction Status Date / Time No Known Allergies Allergy Verified 12/25/17 20:51 - Medications Medications: Current Medications Folic Acid (Folic Acid) 1 mg PO DAILY [facility] Furosemide (Lasix) 20 mg PO DAILY [facility] Pantoprazole Sodium 80 mg/ (Sodium Chloride) 100 mls @ 10 mls/hr IVP .Q10H [facility] PRN Reason: 8 MG/HR Last Admin: 12/26/17 01:38 Dose: 10 mls/hr Lactulose (Enulose) 20 gm PO BID [facility] Last Admin: 12/26/17 01:10 Dose: 20 gm Phytonadione (Vitamin K Tab) 5 mg PO DAILY [facility] Propranolol HCl (Inderal) 5 mg PO TID [facility] Spironolactone (Aldactone) 25 mg PO DAILY [facility] Thiamine HCl (Vitamin B1 Tab) 100 mg PO DAILY [facility] Physical Exam - Constitutional Appears: Chronically Ill Additional comments: inappropriately laughing, intoxicated - Eye Exam Eye Exam: EOMI, PERRL, Scleral icterus - ENT Exam ENT Exam: Mucous Membranes Moist - Respiratory Exam Respiratory Exam: Clear to Auscultation Bilateral. absent: Rales, Rhonchi, Wheezes - Cardiovascular Exam Cardiovascular Exam: Tachycardia, REGULAR RHYTHM, +S1, +S2 - GI/Abdominal Exam GI & Abdominal Exam: Normal Bowel Sounds, Soft. absent: Distended, Firm, Guarding, Hernia, Organomegaly, Rigid, Tenderness - Rectal Exam Rectal Exam: Hemorrhoids (large internal/external hemorrhoids) Additional comments: brown stool - Extremities Exam Additional comments: LLE swelling significantly > right - Neurological Exam Neurological exam: Alert, Oriented x3 Additional comments: +asterixis - Psychiatric Exam Additional comments: intoxicated - Skin Skin Exam: Dry, Warm Results - Vital Signs Recent Vital Signs: Last Vital Signs Temp 98.7 F 12/26/17 08:07 Pulse 107 H 12/26/17 08:07 Resp 22 12/26/17 08:07 BP 139/78 12/26/17 08:07 Pulse Ox 99 12/26/17 08:07 - Labs Result Diagrams: 12/26/17 08:42 12/26/17 08:42 Labs: Laboratory Results - last 24 hr 12/25/17 12/25/17 12/25/17 22:48 22:48 23:35 WBC 3.1 L RBC 1.78 L Hgb 6.0 L* Hct 18.1 L MCV 101.6 H D MCH 33.7 H MCHC 33.2 RDW 19.7 H Plt Count 68 L D MPV 9.8 Neut % (Auto) 48.0 L Lymph % (Auto) 37.4 [place] % (Auto) 12.7 H Eos % (Auto) 1.3 Baso % (Auto) 0.6 Neut # (Auto) 1.5 L Lymph # (Auto) 1.2 [place] # (Auto) 0.4 Eos # (Auto) 0.0 Baso # (Auto) 0.0 PT 33.7 H* INR 2.9 APTT 57 H Sodium Potassium Chloride Carbon Dioxide Anion Gap BUN Creatinine Est GFR ( Amer) Est GFR (Non-Af Amer) Random Glucose Calcium Total Bilirubin AST ALT Alkaline Phosphatase Ammonia Troponin I NT-Pro-B Natriuret Pep Total Protein Albumin Globulin Albumin/Globulin Ratio Lipase Stool Occult Blood Urine Opiates Screen Negative Urine Methadone Screen Negative Ur Barbiturates Screen Negative Ur Phencyclidine Scrn Negative Ur Amphetamines Screen Negative U Benzodiazepines Scrn Negative U Oth Cocaine Metabols Negative U Cannabinoids Screen Negative Alcohol, Quantitative Blood Type Antibody Screen 12/25/17 12/25/17 12/26/17 23:35 23:35 00:08 WBC RBC Hgb Hct MCV MCH MCHC RDW Plt Count MPV Neut % (Auto) Lymph % (Auto) [place] % (Auto) Eos % (Auto) Baso % (Auto) Neut # (Auto) Lymph # (Auto) [place] # (Auto) Eos # (Auto) Baso # (Auto) PT INR APTT Sodium 142 Potassium 3.1 L Chloride 108 H Carbon Dioxide 23 Anion Gap 13 BUN 4 L Creatinine 0.4 L Est GFR ( Amer) > 60 Est GFR (Non-Af Amer) > 60 Random Glucose 94 Calcium 7.5 L Total Bilirubin 12.5 H AST 68 H ALT 32 Alkaline Phosphatase 228 H Ammonia 91 H D Troponin I 0.0350 NT-Pro-B Natriuret Pep 146 Total Protein 7.4 Albumin 2.5 L Globulin 4.9 H Albumin/Globulin Ratio 0.5 L Lipase 134 Stool Occult Blood Urine Opiates Screen Urine Methadone Screen Ur Barbiturates Screen Ur Phencyclidine Scrn Ur Amphetamines Screen U Benzodiazepines Scrn U Oth Cocaine Metabols U Cannabinoids Screen Alcohol, Quantitative 202 H Blood Type B POSITIVE Antibody Screen Negative 12/26/17 12/26/17 12/26/17 04:14 08:42 08:42 WBC 3.5 L RBC 2.13 L Hgb 6.9 L Hct 20.4 L MCV 95.7 D MCH 32.2 H MCHC 33.6 RDW 22.8 H Plt Count 63 L MPV 9.8 Neut % (Auto) 49.6 L Lymph % (Auto) 38.0 [place] % (Auto) 10.9 H Eos % (Auto) 1.0 Baso % (Auto) 0.5 Neut # (Auto) 1.7 L Lymph # (Auto) 1.3 [place] # (Auto) 0.4 Eos # (Auto) 0.0 Baso # (Auto) 0.0 PT 27.6 H D INR 2.4 D APTT 47 H D Sodium Potassium Chloride Carbon Dioxide Anion Gap BUN Creatinine Est GFR ( Amer) Est GFR (Non-Af Amer) Random Glucose Calcium Total Bilirubin AST ALT Alkaline Phosphatase Ammonia Troponin I NT-Pro-B Natriuret Pep Total Protein Albumin Globulin Albumin/Globulin Ratio Lipase Stool Occult Blood Negative Urine Opiates Screen Urine Methadone Screen Ur Barbiturates Screen Ur Phencyclidine Scrn Ur Amphetamines Screen U Benzodiazepines Scrn U Oth Cocaine Metabols U Cannabinoids Screen Alcohol, Quantitative Blood Type Antibody Screen 12/26/17 08:42 WBC RBC Hgb Hct MCV MCH MCHC RDW Plt Count MPV Neut % (Auto) Lymph % (Auto) [place] % (Auto) Eos % (Auto) Baso % (Auto) Neut # (Auto) Lymph # (Auto) [place] # (Auto) Eos # (Auto) Baso # (Auto) PT INR APTT Sodium 139 Potassium 3.3 L Chloride 108 H Carbon Dioxide 23 Anion Gap 11 BUN 3 L Creatinine 0.5 L Est GFR ( Amer) > 60 Est GFR (Non-Af Amer) > 60 Random Glucose 82 Calcium 7.3 L Total Bilirubin 11.8 H AST 61 H ALT 25 Alkaline Phosphatase 194 H Ammonia Troponin I NT-Pro-B Natriuret Pep Total Protein 7.0 Albumin 2.4 L Globulin 4.6 H Albumin/Globulin Ratio 0.5 L Lipase Stool Occult Blood Urine Opiates Screen Urine Methadone Screen Ur Barbiturates Screen Ur Phencyclidine Scrn Ur Amphetamines Screen U Benzodiazepines Scrn U Oth Cocaine Metabols U Cannabinoids Screen Alcohol, Quantitative Blood Type Antibody Screen Assessment & Plan - Assessment and Plan (Free Text) Assessment: Patient is a 36yo female with PMHx significant for decompensated EtOH cirrhosis c/b ascites, HE, jaundice and varices (on CT), ongoing EtOH abuse/dependence, alcoholic hepatitis, pancytopenia who presented to the ED brought in by her mother for acute intoxication and recent fall. 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 -S/P 1 unit PRBCs - goal HGB 7-8 in cirrhotic patient to avoid increasing portal pressure -Will transfuse one more unit PRBC now -Coagulopathy is a result of impaired liver function - in the absence of acute hemorrhage -Component of EtOH hepatitis suspected given recent use - MDF: 112 -Check blood/urine cultures; R/O infection -If LFTs worsening, consider addition of Prednisolone as MDF>32 -Lactulose 20g TID - titrate to 2-3 BM/day -Add Rifaximin 500mg PO BID -D/C PPI gtt, start IV BID -Continue Propranolol 5mg PO TID -Consider discontinuation of Lasix/Aldactone - no h/o ascites -Recommend LE doppler of LLE to R/O DVT -Awaiting plain films to r/o further bony fractures -EtOH withdrawal prevention -Daily MELD labs -Plan for EGD tomorrow with possible EVL - 3 units FFP to be transfused starting at 3AM -EtOH abstinence, recommend formal rehabilitation program *MELD-Na: 26 (previously 30 in May 2017) - Date & Time Date: 12/26/17 Time: 09:15 <Tee Harris - Last Filed: 12/26/17 19:22> Meds - Medications Medications: Current Medications Furosemide (Lasix) 20 mg PO DAILY [facility] Last Admin: 12/26/17 10:41 Dose: 20 mg Folic Acid 1 mg/ Thiamine HCl 100 mg/ Multivitamins/Vitamin C 10 ml/ Dextrose 1 ,011.2 mls @ 70 mls/hr IV DAILY@1500 [facility] Lactulose (Enulose) 20 gm PO TID [facility] Last Admin: 12/26/17 18:05 Dose: 20 gm Pantoprazole Sodium (Protonix Inj) 40 mg IVP Q12H [facility] Last Admin: 12/26/17 18:12 Dose: 40 mg Phytonadione (Vitamin K Tab) 5 mg PO DAILY [facility] Last Admin: 12/26/17 10:40 Dose: 5 mg Propranolol HCl (Inderal) 5 mg PO TID [facility] Last Admin: 12/26/17 18:05 Dose: 5 mg Rifaximin (Xifaxan) 550 mg PO BID [facility] Spironolactone (Aldactone) 25 mg PO DAILY [facility] Last Admin: 12/26/17 10:40 Dose: 25 mg Results - Vital Signs Recent Vital Signs: Last Vital Signs Temp 97.9 F 12/26/17 15:54 Pulse 96 H 12/26/17 15:54 Resp 20 12/26/17 15:54 BP 149/78 12/26/17 15:54 Pulse Ox 97 12/26/17 15:54 - Labs Result Diagrams: 12/26/17 08:42 12/26/17 08:42 Labs: Laboratory Results - last 24 hr 12/25/17 12/25/17 12/25/17 22:48 22:48 23:35 WBC 3.1 L RBC 1.78 L Hgb 6.0 L* Hct 18.1 L MCV 101.6 H D MCH 33.7 H MCHC 33.2 RDW 19.7 H Plt Count 68 L D MPV 9.8 Neut % (Auto) 48.0 L Lymph % (Auto) 37.4 [place] % (Auto) 12.7 H Eos % (Auto) 1.3 Baso % (Auto) 0.6 Neut # (Auto) 1.5 L Lymph # (Auto) 1.2 [place] # (Auto) 0.4 Eos # (Auto) 0.0 Baso # (Auto) 0.0 PT 33.7 H* INR 2.9 APTT 57 H Sodium Potassium Chloride Carbon Dioxide Anion Gap BUN Creatinine Est GFR ( Amer) Est GFR (Non-Af Amer) Random Glucose Calcium Total Bilirubin AST ALT Alkaline Phosphatase Ammonia Troponin I NT-Pro-B Natriuret Pep Total Protein Albumin Globulin Albumin/Globulin Ratio Lipase Stool Occult Blood Urine Opiates Screen Negative Urine Methadone Screen Negative Ur Barbiturates Screen Negative Ur Phencyclidine Scrn Negative Ur Amphetamines Screen Negative U Benzodiazepines Scrn Negative U Oth Cocaine Metabols Negative U Cannabinoids Screen Negative Alcohol, Quantitative Blood Type Antibody Screen 12/25/17 12/25/17 12/26/17 23:35 23:35 00:08 WBC RBC Hgb Hct MCV MCH MCHC RDW Plt Count MPV Neut % (Auto) Lymph % (Auto) [place] % (Auto) Eos % (Auto) Baso % (Auto) Neut # (Auto) Lymph # (Auto) [place] # (Auto) Eos # (Auto) Baso # (Auto) PT INR APTT Sodium 142 Potassium 3.1 L Chloride 108 H Carbon Dioxide 23 Anion Gap 13 BUN 4 L Creatinine 0.4 L Est GFR ( Amer) > 60 Est GFR (Non-Af Amer) > 60 Random Glucose 94 Calcium 7.5 L Total Bilirubin 12.5 H AST 68 H ALT 32 Alkaline Phosphatase 228 H Ammonia 91 H D Troponin I 0.0350 NT-Pro-B Natriuret Pep 146 Total Protein 7.4 Albumin 2.5 L Globulin 4.9 H Albumin/Globulin Ratio 0.5 L Lipase 134 Stool Occult Blood Urine Opiates Screen Urine Methadone Screen Ur Barbiturates Screen Ur Phencyclidine Scrn Ur Amphetamines Screen U Benzodiazepines Scrn U Oth Cocaine Metabols U Cannabinoids Screen Alcohol, Quantitative 202 H Blood Type B POSITIVE Antibody Screen Negative 12/26/17 12/26/17 12/26/17 04:14 08:42 08:42 WBC 3.5 L RBC 2.13 L Hgb 6.9 L Hct 20.4 L MCV 95.7 D MCH 32.2 H MCHC 33.6 RDW 22.8 H Plt Count 63 L MPV 9.8 Neut % (Auto) 49.6 L Lymph % (Auto) 38.0 [place] % (Auto) 10.9 H Eos % (Auto) 1.0 Baso % (Auto) 0.5 Neut # (Auto) 1.7 L Lymph # (Auto) 1.3 [place] # (Auto) 0.4 Eos # (Auto) 0.0 Baso # (Auto) 0.0 PT 27.6 H D INR 2.4 D APTT 47 H D Sodium Potassium Chloride Carbon Dioxide Anion Gap BUN Creatinine Est GFR ( Amer) Est GFR (Non-Af Amer) Random Glucose Calcium Total Bilirubin AST ALT Alkaline Phosphatase Ammonia Troponin I NT-Pro-B Natriuret Pep Total Protein Albumin Globulin Albumin/Globulin Ratio Lipase Stool Occult Blood Negative Urine Opiates Screen Urine Methadone Screen Ur Barbiturates Screen Ur Phencyclidine Scrn Ur Amphetamines Screen U Benzodiazepines Scrn U Oth Cocaine Metabols U Cannabinoids Screen Alcohol, Quantitative Blood Type Antibody Screen 12/26/17 08:42 WBC RBC Hgb Hct MCV MCH MCHC RDW Plt Count MPV Neut % (Auto) Lymph % (Auto) [place] % (Auto) Eos % (Auto) Baso % (Auto) Neut # (Auto) Lymph # (Auto) [place] # (Auto) Eos # (Auto) Baso # (Auto) PT INR APTT Sodium 139 Potassium 3.3 L Chloride 108 H Carbon Dioxide 23 Anion Gap 11 BUN 3 L Creatinine 0.5 L Est GFR ( Amer) > 60 Est GFR (Non-Af Amer) > 60 Random Glucose 82 Calcium 7.3 L Total Bilirubin 11.8 H AST 61 H ALT 25 Alkaline Phosphatase 194 H Ammonia Troponin I NT-Pro-B Natriuret Pep Total Protein 7.0 Albumin 2.4 L Globulin 4.6 H Albumin/Globulin Ratio 0.5 L Lipase Stool Occult Blood Urine Opiates Screen Urine Methadone Screen Ur Barbiturates Screen Ur Phencyclidine Scrn Ur Amphetamines Screen U Benzodiazepines Scrn U Oth Cocaine Metabols U Cannabinoids Screen Alcohol, Quantitative Blood Type Antibody Screen Attending/Attestation - Attestation I have personally seen and examined this patient.: Yes I have fully participated in the care of the patient.: Yes I have reviewed all pertinent clinical information: Yes Notes (Text): 12/26/17 19:20 36 year old female with h/o ongoing alcohol abuse admitted after fall, found to have severe anemia, without signs of overt GI bleeding currently. Discussed the severity of liver disease with the patient and mother, indicating that she already has a poor prognosis which will only be made worse with ongoing drinking. Advised evaluation at a transplant center and etoh cessation going forward. She should have an endoscopy to eval and rx varices when coagulopathy is corrected. In the meantime, supportive measures with blood transfusion and treatment for HE as above is indicated.
[2017-12-26] MEDS: Phytonadione 2.5 MG/0.5 TAB TAB PO SCH (10:40)
[2017-12-26] MEDS: Propranolol 5 mg Tab PO SCH ×2 (10:42→18:05)
--- NOTE | 2017-12-26 11:04 | RAD ---
Indication: Rule out fracture Left hip with pelvis radiographs Comparison: No priors. Findings: Acute fracture deformities involving the left pubic symphysis and left superior and inferior pubic rami. Sacroiliac joints appear intact. Mild constipation. Soft tissues appear unremarkable. Pelvic calcifications, likely phleboliths. No evidence of radiopaque foreign body. Impression: Acute fracture deformities involving the left pubic symphysis and left superior and inferior pubic rami. Recommend correlation with CT abdomen and pelvis with IV contrast performed subsequently.
[2017-12-26] MEDS ORDERED: Potassium Chloride 20 mEq ER Tab PO ONE (15:59)
[2017-12-26] MEDS ORDERED: Potassium Chloride 20 mEq ER Tab PO SCH (16:00)
[2017-12-26] MEDS: Folic Acid 1 MG, Thiamine 100 MG, Multivitamin (MVI) 10 ML in Dextrose 5% In Water 1,00... IV SCH (20:14)
--- NOTE | 2017-12-26 23:50 | CP.PCM.PN ---
Subjective - Date & Time of Evaluation Date of Evaluation: 12/26/17 Time of Evaluation: 23:50 - Subjective Subjective: Patient currently receiving blood transfusion. Patient is more awake and responding. No pain noted. But pain in the left pelvic region noted Vital signs stable. Chest good air entry regular heart sound. Abdominal distention noted, leg edema noted CAT scan of the abdomen and pelvis is reviewed liver cirrhosis, thickening of the gallbladder wall noted. Left pubic bone fracture noted inferior and superior pubic ramus. Mild T11 vertebral compression fracture noted. As NOTED ASSESSMENT AND RECOMMENDATION: 36-YEAR-OLD FEMALE ADMITTED WITH FALL, INJURY. LEFT PUBIC BONE FRACTURE UNDISPLACED, CONSERVATIVE TREATMENT. LIVER CIRRHOSIS, COMPLICATED WITH COAGULOPATHY. ASCITES. ANASARCA NOTED. SEVERE ANEMIA. CURRENTLY RECEIVING BLOOD TRANSFUSION AND FFP. CONTINUE THE CURRENT TREATMENT. EDUCATED ABOUT ALCOHOLISM, WILL GET A PSYCHIATRIC EVALUATION. FOR ENDOSCOPY AND WILL FOLLOW THE PATIENT Objective - Vital Signs/Intake and Output Vital Signs (last 24 hours): Temp Pulse Resp BP Pulse Ox 98.8 F 91 H 20 130/71 99 12/26/17 21:51 12/26/17 21:51 12/26/17 21:51 12/26/17 21:51 12/26/17 20:00 Intake and Output: 12/26/17 12/27/17 18:59 06:59 Intake Total 0 Balance 0 - Medications Medications: Current Medications Furosemide (Lasix) 20 mg PO DAILY [facility] Last Admin: 12/26/17 10:41 Dose: 20 mg Folic Acid 1 mg/ Thiamine HCl 100 mg/ Multivitamins/Vitamin C 10 ml/ Dextrose 1 ,011.2 mls @ 70 mls/hr IV DAILY@1500 [facility] Last Admin: 12/26/17 20:14 Dose: 70 mls/hr Lactulose (Enulose) 20 gm PO TID [facility] Last Admin: 12/26/17 18:05 Dose: 20 gm Pantoprazole Sodium (Protonix Inj) 40 mg IVP Q12H [facility] Last Admin: 12/26/17 18:12 Dose: 40 mg Phytonadione (Vitamin K Tab) 5 mg PO DAILY [facility] Last Admin: 12/26/17 10:40 Dose: 5 mg Propranolol HCl (Inderal) 5 mg PO TID [facility] Last Admin: 12/26/17 18:05 Dose: 5 mg Rifaximin (Xifaxan) 550 mg PO BID [facility] Last Admin: 12/26/17 20:17 Dose: 550 mg Spironolactone (Aldactone) 25 mg PO DAILY [facility] Last Admin: 12/26/17 10:40 Dose: 25 mg - Labs Labs: 12/26/17 08:42 12/26/17 08:42 PT 27.6 SECONDS (9.7-12.2) H D 12/26/17 08:42 INR 2.4 D 12/26/17 08:42 APTT 47 SECONDS (21-34) H D 12/26/17 08:42
[2017-12-27 09:10] LABS: BASO % 0.5 % (0.0-2.0); EOS # 0.1 K/uL (0.0-0.7); EOS % 2.2 % (0.0-4.0); HEMOGLOBIN 7.6 g/dL (11.0-16.0); LYMPH # 1.2 K/uL (1.0-4.3); LYMPH % 27.9 % (20.0-40.0); MEAN CORPUSCULAR HEMOGLOBIN 31.7 pg (27.0-31.0); MEAN CORPUSCULAR HGB CONC 34.1 g/dL (33.0-37.0); MEAN PLATELET VOLUME 10.2 fL (7.2-11.7); MONO # 0.4 K/uL (0.0-0.8); MONO % 8.7 % (0.0-10.0); NEUT # 2.6 K/uL (1.8-7.0); NEUT % 60.7 % (50.0-75.0); NRBC % 0.2 % (0.0-2.0); RBC 2.4 Mil/uL (3.80-5.20); RED CELL DISTRIBUTION WIDTH 23.2 % (11.5-14.5); WHITE BLOOD COUNT 4.3 K/uL (4.8-10.8)
[2017-12-27 09:11] LABS: MEAN CELL VOLUME 92.9 fL (81.0-99.0)
[2017-12-27 09:13] LABS: INR 2.1; PROTHROMBIN TIME 24.4 SECONDS (9.7-12.2)
[2017-12-27 09:30] LABS: ALB/GLOB RATIO 0.6 (1.0-2.1); ALBUMIN 2.4 g/dL (3.5-5.0); ALT/SGPT 31 U/L (9-52); AST/SGOT 50 U/L (14-36); BLOOD UREA NITROGEN 7 mg/dL (7-17); CALCIUM 7.7 mg/dl (8.6-10.4); GFR AFRICAN-AMERICAN > 60; GFR NON-AFRICAN AMERICAN > 60
[2017-12-27] MEDS: Phytonadione 2.5 MG/0.5 TAB TAB PO SCH ×2 (10:00→12:35)
[2017-12-27] MEDS: Propranolol 5 mg Tab PO SCH ×2 (10:56→18:25)
[2017-12-27 11:48] LABS: PROTHROMBIN TIME 23.8 SECONDS (9.7-12.2)
[2017-12-27 11:56] LABS: MAGNESIUM 1.3 mg/dL (1.6-2.3)
[2017-12-27] MEDS: Magnesium Sulfate 1 gm in D5W 1 GM/100 ML BAG IVPB SCH ×2 (12:30→13:00)
[2017-12-27] MEDS: Magnesium Sulfate 1 gm in D5W 1 GM/100 ML BAG IVPB ONE ×2 (12:32→13:00)
--- NOTE | 2017-12-27 12:44 | CP.PCM.PN ---
<Bal Wahl - Last Filed: 12/27/17 14:21> Subjective - Date & Time of Evaluation Date of Evaluation: 12/27/17 Time of Evaluation: 06:15 - Subjective Subjective: PGY5 GI Fellow Progress Note Patient seen and examined bedside this morning. The patient states that she is feeling well and has no complaints at this time. Received FFP overnight and this transfusion is ongoing right now. No issues sleeping last night. No nausea , vomiting, hematochezia, melena. Patient had BM with Lactulose administration. 12 system ROS performed and negative except where stated. Objective - Vital Signs/Intake and Output Vital Signs (last 24 hours): Temp Pulse Resp BP Pulse Ox 98.3 F 90 18 138/75 100 12/27/17 10:15 12/27/17 10:15 12/27/17 10:15 12/27/17 10:15 12/27/17 12:14 Intake and Output: 12/27/17 12/27/17 06:59 18:59 Intake Total 1687 Balance 1687 - Medications Medications: Current Medications Furosemide (Lasix) 20 mg PO DAILY [facility] Last Admin: 12/27/17 10:57 Dose: Not Given Folic Acid 1 mg/ Thiamine HCl 100 mg/ Multivitamins/Vitamin C 10 ml/ Dextrose 1 ,011.2 mls @ 70 mls/hr IV DAILY@1500 [facility] Last Admin: 12/26/17 20:14 Dose: 70 mls/hr Potassium Chloride (Potassium Chloride 20 Meq/100 Ml) 20 meq in 100 mls @ 50 mls/hr IVPB Q2H [facility] Stop: 12/27/17 14:59 Last Admin: 12/27/17 10:55 Dose: 50 mls/hr Magnesium Sulfate/Dextrose (Magnesium Sulfate 1 Gm/100 Ml D5w) 1 gm in 100 mls @ 100 mls/hr IVPB ONCE ONE Stop: 12/27/17 13:59 Last Admin: 12/27/17 12:32 Dose: 100 mls/hr Magnesium Sulfate/Dextrose (Magnesium Sulfate 1 Gm/100 Ml D5w) 1 gm in 100 mls @ 300 mls/hr IVPB Q30M [facility] Stop: 12/27/17 13:19 Lactulose (Enulose) 20 gm PO TID [facility] Last Admin: 12/27/17 10:56 Dose: Not Given Pantoprazole Sodium (Protonix Inj) 40 mg IVP Q12H [facility] Last Admin: 12/27/17 03:56 Dose: 40 mg Phytonadione (Vitamin K Tab) 5 mg PO DAILY [facility] Last Admin: 12/27/17 10:00 Dose: Not Given Potassium Chloride (K-Dur 20 Meq Er Tab) 40 meq PO 2000 ONE Stop: 12/27/17 20:01 Propranolol HCl (Inderal) 5 mg PO TID [facility] Last Admin: 12/27/17 10:56 Dose: Not Given Rifaximin (Xifaxan) 550 mg PO BID [facility] Last Admin: 12/27/17 10:00 Dose: Not Given Spironolactone (Aldactone) 25 mg PO DAILY [facility] Last Admin: 12/27/17 10:56 Dose: Not Given - Labs Labs: 12/27/17 08:58 12/27/17 08:58 PT 23.8 SECONDS (9.7-12.2) H 12/27/17 11:31 INR 2.0 12/27/17 11:31 APTT 45 SECONDS (21-34) H 12/27/17 11:31 - Constitutional Appears: No Acute Distress, Chronically Ill - Eye Exam Eye Exam: EOMI, PERRL, Scleral icterus - ENT Exam ENT Exam: Mucous Membranes Dry - Respiratory Exam Respiratory Exam: Clear to Ausculation Bilateral. absent: Rales, Rhonchi, Wheezes - Cardiovascular Exam Cardiovascular Exam: RRR, +S1, +S2 - GI/Abdominal Exam GI & Abdominal Exam: Soft, Normal Bowel Sounds. absent: Distended, Firm, Guarding, Rigid, Tenderness, Organomegaly - Extremities Exam Additional comments: LLE edema > RLE - Neurological Exam Neurological Exam: Alert, Awake, Oriented x3 Additional comments: +asterixis - Psychiatric Exam Psychiatric exam: Normal Affect, Normal Mood - Skin Skin Exam: Dry, Warm Assessment and Plan - Assessment and Plan (Free Text) Assessment: Patient is a 36yo female with PMHx significant for decompensated EtOH cirrhosis c/b ascites, HE, jaundice and varices (on CT), ongoing EtOH abuse/dependence, alcoholic hepatitis, pancytopenia who presented to the ED brought in by her mother for acute intoxication and recent fall. -Decompensated EtOH cirrhosis -Complications of cirrhosis: coagulopathy, pancytopenia, hyperbilirubinemia -Hepatic encephalopathy, grade 2 -Chronic Macrocytic anemia -Alcoholic hepatitis -Acute EtOH intoxication -EtOH abuse/dependence -Hypokalemia/Hypomagnesemia -Left pubic bone fracture Plan: -No overt blood loss noted since admission -HGB 7.6 s/p 2 units PRBCs, 2 on hold -S/P 3 units FFP and INR remains at 2; in conjunction with hypokalemia/hypoMg, will not perform EGD/EVL today -Do not overtransfuse patient, goal HGB 7-8 -Will consider initiation of Prednisolone 40mg PO QD for acute alcoholic hepatitis; MDF>32 on admission -Blood/urine cx negative to date -Lactulose 20g TID - titrate to 2-3 BM/day -Rifaximin 500mg PO BID -Protonix 40mg IV BID -Continue Propranolol 5mg PO TID -D/C Lasix/Aldactone - no h/o ascites -Awaiting LE doppler of LLE to R/O DVT - prelim without evidence of DVT -EtOH withdrawal prevention -Replete K+ and Mg+ as ordered -Daily MELD labs -Will again attempt EGD tomorrow with possible EVL - 4 units FFP to be transfused starting at 3AM -EtOH abstinence, recommend formal rehabilitation program *MELD-Na: 26 <Noe Rojas - Last Filed: 12/27/17 17:59> Objective - Vital Signs/Intake and Output Vital Signs (last 24 hours): Temp Pulse Resp BP Pulse Ox 98.4 F 81 20 137/75 100 12/27/17 16:00 12/27/17 16:00 12/27/17 16:00 12/27/17 16:00 12/27/17 16:00 Intake and Output: 12/27/17 12/27/17 06:59 18:59 Intake Total 1687 Balance 1687 - Medications Medications: Current Medications Folic Acid 1 mg/ Thiamine HCl 100 mg/ Multivitamins/Vitamin C 10 ml/ Dextrose 1 ,011.2 mls @ 70 mls/hr IV DAILY@1500 [facility] Last Admin: 12/26/17 20:14 Dose: 70 mls/hr Lactulose (Enulose) 20 gm PO TID [facility] Last Admin: 12/27/17 13:06 Dose: 20 gm Pantoprazole Sodium (Protonix Inj) 40 mg IVP Q12H [facility] Last Admin: 12/27/17 16:47 Dose: 40 mg Phytonadione (Vitamin K Tab) 5 mg PO DAILY [facility] Last Admin: 12/27/17 12:35 Dose: 5 mg Potassium Chloride (K-Dur 20 Meq Er Tab) 40 meq PO ONCE ONE Stop: 12/27/17 20:01 Propranolol HCl (Inderal) 5 mg PO TID [facility] Last Admin: 12/27/17 10:56 Dose: Not Given Rifaximin (Xifaxan) 550 mg PO BID [facility] Last Admin: 12/27/17 12:36 Dose: 550 mg - Labs Labs: 12/27/17 08:58 12/27/17 08:58 PT 23.8 SECONDS (9.7-12.2) H 12/27/17 11:31 INR 2.0 12/27/17 11:31 APTT 45 SECONDS (21-34) H 12/27/17 11:31 Attending/Attestation - Attestation I have personally seen and examined this patient.: Yes I have fully participated in the care of the patient.: Yes I have reviewed all pertinent clinical information, including history, physical exam and plan: Yes Notes (Text): 12/27/17 17:55 I have seen and examined patient with GI fellow. No acute events overnight, she is seen resting in bed comfortably. She had two loose bowel movements without presence of blood in stool. Review of vitals from today are normal. ETOH decompensated cirrhosis Acute ETOH hepatitis Anemia - Continue with liquid diet, advance slowly as tolerated - Patient was planned for possible EGD today for variceal screening, procedure deferred due to elevated INR, will potentially reattempt tomorrow - Continue to monitor LFTs - Patient not candidate for steroid therapy for acute ETOH hepatitis despite elevated DF secondary to medication compliance and follow up issues, can consider use of Trental - H/H stable, continue to monitor - Continue with xifaxan and lactulose therapy for HE prevention - Monitor for signs of ETOH withdrawal - Patient accepted for potential transfer to [facility] for ongoing advanced liver care, though patient currently not candidate for transplant or trial inclusion - Overall poor prognosis, will continue to monitor patient clinical course
--- NOTE | 2017-12-27 13:17 | VASCLAB ---
PROCEDURE: Left Lower Extremity Venous Duplex Exam. HISTORY: LLE swelling R/O DVT PRIORS: None. TECHNIQUE: Left common femoral, femoral, popliteal and posterior tibial, peroneal and great saphenous veins were evaluated. Flow was assessed with color Doppler, compressibility, assessment of phasic flow and augmentation response. Report prepared by BERNARDINO Mills FINDINGS: LEFT: 1. Common Femoral Vein: 1.1. Compressibility - Fully compressible: Thrombus - None : Flow - Phasic: Augmentation -Normal: Reflux - None. 2. Femoral Vein: 2.1. Compressibility - Fully compressible: Thrombus - None: Flow - Phasic: Augmentation -Normal: Reflux - None. 3. Popliteal Vein: 3.1. Compressibility - Fully compressible: Thrombus - None: Flow - Phasic: Augmentation -Normal: Reflux - None. 4. Posterior Tibial Vein: 4.1. Compressibility - Fully compressible: Thrombus - None: Flow - Phasic: Augmentation -Normal: Reflux - None. 5. Peroneal Vein: 5.1. Compressibility - Fully compressible: Thrombus - None: Flow - Phasic: Augmentation -Normal: Reflux - None. 6. Great Saphenous Vein: 6.1. Compressibility - Fully compressible: Thrombus - None: Flow - Phasic: Augmentation - Normal: Reflux - None. OTHER FINDINGS: IMPRESSION: No evidence of deep or superficial vein thrombosis of the left lower extremity with excellent venous flow. Normal valve function noted of the left side. Normal venous flow noted in the right common femoral vein.
[2017-12-27] MEDS: Folic Acid 1 MG, Thiamine 100 MG, Multivitamin (MVI) 10 ML in Dextrose 5% In Water 1,00... IV SCH (16:00)
[2017-12-27] MEDS ORDERED: Potassium Chloride 20 mEq ER Tab PO ONE (20:00)
--- NOTE | 2017-12-27 21:08 | CP.PCM.PN ---
Subjective - Date & Time of Evaluation Date of Evaluation: 12/27/17 Time of Evaluation: 21:08 - Subjective Subjective: Patient supposed to have endoscopy this morning, because of abnormal labs it was on hold. Patient is currently feeling well, left hip pain noted, denies any chest pain. Minimal soreness of throat noted. Noted. No chest pain. Bilateral leg swelling noted On examination: Vital signs stable. Patient does not have any tremor or tachycardia Bilateral pedal edema noted. Abdominal distention present. Patient's labs reviewed Low potassium level and magnesium level noted and supplemented. Assessment and recommendation: 36-year-old female with a history of fall, liver cirrhosis, and alcoholic abuse. Patient currently has and admitted with Left pubic bone fracture, secondary to fall. Liver cirrhosis, coagulopathy, ascites, anasarca, severe anemia. Chronic GI bleed. Currently on multiple medications. Appreciate a GI evaluation, discussed with the GI, for possible endoscopy in the morning. Will watch for DTs. So far stable. will start gabapentin trazadone Objective - Vital Signs/Intake and Output Vital Signs (last 24 hours): Temp Pulse Resp BP Pulse Ox 98.4 F 81 20 137/75 100 12/27/17 16:00 12/27/17 16:00 12/27/17 16:00 12/27/17 16:00 12/27/17 16:00 - Medications Medications: Current Medications Folic Acid 1 mg/ Thiamine HCl 100 mg/ Multivitamins/Vitamin C 10 ml/ Dextrose 1 ,011.2 mls @ 70 mls/hr IV DAILY@1500 [facility] Last Admin: 12/26/17 20:14 Dose: 70 mls/hr Lactulose (Enulose) 20 gm PO TID [facility] Last Admin: 12/27/17 20:26 Dose: 20 gm Pantoprazole Sodium (Protonix Inj) 40 mg IVP Q12H [facility] Last Admin: 12/27/17 16:47 Dose: 40 mg Phytonadione (Vitamin K Tab) 5 mg PO DAILY [facility] Last Admin: 12/27/17 12:35 Dose: 5 mg Propranolol HCl (Inderal) 5 mg PO TID [facility] Last Admin: 12/27/17 18:25 Dose: 5 mg Rifaximin (Xifaxan) 550 mg PO BID [facility] Last Admin: 12/27/17 18:25 Dose: 550 mg - Labs Labs: 12/27/17 08:58 12/27/17 08:58 PT 23.8 SECONDS (9.7-12.2) H 12/27/17 11:31 INR 2.0 12/27/17 11:31 APTT 45 SECONDS (21-34) H 12/27/17 11:31
[2017-12-28] MEDS ORDERED: Albuterol-Ipratrop 3 mg / 0.5 (3 ml) UD INH STA (03:55)
[2017-12-28 08:19] LABS: INR 1.7; PROTHROMBIN TIME 19.4 SECONDS (9.7-12.2)
[2017-12-28 08:22] LABS: BASO % 0.6 % (0.0-2.0); EOS # 0.1 K/uL (0.0-0.7); HEMOGLOBIN 8.1 g/dL (11.0-16.0); LYMPH # 1.2 K/uL (1.0-4.3); LYMPH % 26.6 % (20.0-40.0); MEAN CELL VOLUME 93.7 fL (81.0-99.0); MEAN CORPUSCULAR HEMOGLOBIN 31.4 pg (27.0-31.0); MEAN CORPUSCULAR HGB CONC 33.5 g/dL (33.0-37.0); MEAN PLATELET VOLUME 9.1 fL (7.2-11.7); MONO # 0.4 K/uL (0.0-0.8); MONO % 10.1 % (0.0-10.0); NEUT # 2.7 K/uL (1.8-7.0); NEUT % 60.7 % (50.0-75.0); NRBC % 0.3 % (0.0-2.0); RBC 2.59 Mil/uL (3.80-5.20); RED CELL DISTRIBUTION WIDTH 24.2 % (11.5-14.5); WHITE BLOOD COUNT 4.4 K/uL (4.8-10.8)
[2017-12-28 08:29] LABS: ALB/GLOB RATIO 0.6 (1.0-2.1); ALT/SGPT 27 U/L (9-52); AST/SGOT 49 U/L (14-36); BLOOD UREA NITROGEN 6 mg/dL (7-17); CALCIUM 8.5 mg/dl (8.6-10.4); GFR AFRICAN-AMERICAN > 60; GFR NON-AFRICAN AMERICAN > 60; MAGNESIUM 1.6 mg/dL (1.6-2.3)
--- NOTE | 2017-12-28 08:36 | RAD ---
HISTORY: wheezing, cough COMPARISON: Chest X-ray performed 09/03/16 TECHNIQUE: Chest, one view. FINDINGS: Examination limited by habitus. LUNGS: Bilateral hilar prominence/central venous congestion. Subtle right middle lobe infiltrate. Mild left basilar atelectasis. Nonspecific oblong opacity to the right of the distal trachea, measures approximately 18 mm. PLEURA: No significant pleural effusion identified. No definite pneumothorax . CARDIOVASCULAR: Cardiomegaly. Atherosclerotic calcification of the aorta. OSSEOUS STRUCTURES: Degenerative changes. VISUALIZED UPPER ABDOMEN: Unremarkable. OTHER FINDINGS: None. IMPRESSION: Bilateral hilar prominence/central venous congestion. Subtle right middle lobe infiltrate. Mild left basilar atelectasis. Nonspecific oblong opacity to the right of the distal trachea, measures approximately 18 mm, possibly artifactual/confluence of shadows ; attention on follow-up.
[2017-12-28] MEDS: Propranolol 5 mg Tab PO SCH ×4 (09:35→17:27)
[2017-12-28] MEDS: Phytonadione 2.5 MG/0.5 TAB TAB PO SCH (09:35)
--- NOTE | 2017-12-28 12:44 | CARD ---
APPROVED REPORT EKG Measurement Heart [id number] <Conclusion> Sinus tachycardia Nonspecific ST abnormality Abnormal ECG
--- NOTE | 2017-12-28 13:44 | CP.PCM.PN ---
Subjective - Date & Time of Evaluation Date of Evaluation: 12/28/17 Time of Evaluation: 13:43 - Subjective Subjective: Patient today. Awaiting for EGD. She is awake and responding. No distress. Patient received a few units of FFP last night, this morning patient was having minimal shortness of breath. Lasix 20 milligram is given. Clinically patient is okay otherwise. No cough now. No nausea vomiting. On examination: HEENT PERRLA, neck supple No thyromegaly was noted and no cervical adenopathy noted Chest bilateral good air entry, no wheezing or rales noted CVS regular heart sound, no murmur Abdomen the distention present Edema noted STUDENT SPECIALIST alert awake oriented x3 no functional neurological deficit. Labs reviewed. Elevated bilirubin noted 17 point 5 Hemoglobin 8.1, INR is 1.7. Assessment and recommendation: 36-year-old female with a history of fall, liver cirrhosis, and alcoholic abuse. Patient currently has and admitted with Left pubic bone fracture, secondary to fall. Liver cirrhosis, coagulopathy, ascites, anasarca, severe anemia. Chronic GI bleed. Currently on multiple medications. for possible endoscopy Will watch for DTs. So far stable. Continue gabapentin D/c plan possibly this weekend Objective - Vital Signs/Intake and Output Vital Signs (last 24 hours): Temp Pulse Resp BP Pulse Ox 98.6 F 99 H 18 152/79 H 96 12/28/17 10:15 12/28/17 10:15 12/28/17 10:15 12/28/17 10:15 12/28/17 07:25 Intake and Output: 12/28/17 12/28/17 06:59 18:59 Intake Total 980 750 Output Total 400 Balance 980 350 - Medications Medications: Current Medications Gabapentin (Neurontin) 300 mg PO BID [facility] Last Admin: 12/28/17 09:35 Dose: Not Given Folic Acid 1 mg/ Thiamine HCl 100 mg/ Multivitamins/Vitamin C 10 ml/ Dextrose 1 ,011.2 mls @ 70 mls/hr IV DAILY@1500 [facility] Last Admin: 12/27/17 16:00 Dose: Not Given Lactulose (Enulose) 20 gm PO TID [facility] Last Admin: 12/28/17 09:35 Dose: Not Given Pantoprazole Sodium (Protonix Inj) 40 mg IVP Q12H [facility] Last Admin: 12/28/17 04:11 Dose: 40 mg Pentoxifylline (Pentoxil) 400 mg PO TID [facility] Phytonadione (Vitamin K Tab) 5 mg PO DAILY [facility] Last Admin: 12/28/17 09:35 Dose: Not Given Propranolol HCl (Inderal) 5 mg PO TID [facility] Last Admin: 12/28/17 09:35 Dose: Not Given Rifaximin (Xifaxan) 550 mg PO BID [facility] Last Admin: 12/28/17 09:35 Dose: Not Given - Labs Labs: 12/28/17 07:58 12/28/17 07:58 PT 19.4 SECONDS (9.7-12.2) H 12/28/17 07:58 INR 1.7 12/28/17 07:58 APTT 45 SECONDS (21-34) H 12/27/17 11:31
[2017-12-28] MEDS ORDERED: Lactated Ringer's 1,000 ML IV ONE (15:05)
[2017-12-28] MEDS ORDERED: Propofol 10 mg/ml Inj (20 ML) ONE ×2 (15:41→15:48)
--- NOTE | 2017-12-28 16:26 | PCM.PYCHPN ---
Psychiatric Progress Note - Psychiatric Progress Note Patient Chief Complaint: Went to see pt, she went for EGD, since past 2 hours. Pt will be seen later.
[2017-12-28] MEDS: Folic Acid 1 MG, Thiamine 100 MG, Multivitamin (MVI) 10 ML in Dextrose 5% In Water 1,00... IV SCH (17:28)
[2017-12-28 17:35] VITALS: RESP 20
--- NOTE | 2017-12-29 07:30 | CP.PCM.PN ---
<Bal Wahl - Last Filed: 12/29/17 10:04> Subjective - Date & Time of Evaluation Date of Evaluation: 12/29/17 Time of Evaluation: 07:40 - Subjective Subjective: PGY5 GI Fellow Progress Note Patient seen and examined bedside this morning. The patient states that she is feeling well and has no new complaints. Continues to deny any overt GI bleeding. No nausea, vomiting. Tolerated diet without issue. 12 system ROS performed and negative except where stated. Objective - Vital Signs/Intake and Output Vital Signs (last 24 hours): Temp Pulse Resp BP Pulse Ox 98.8 F 88 20 127/75 97 12/29/17 04:15 12/29/17 04:15 12/29/17 04:15 12/29/17 04:15 12/29/17 04:15 Intake and Output: 12/29/17 12/29/17 06:59 18:59 Intake Total 120 Balance 120 - Medications Medications: Current Medications Gabapentin (Neurontin) 300 mg PO BID [facility] Last Admin: 12/28/17 17:27 Dose: 300 mg Folic Acid 1 mg/ Thiamine HCl 100 mg/ Multivitamins/Vitamin C 10 ml/ Dextrose 1 ,011.2 mls @ 70 mls/hr IV DAILY@1500 [facility] Last Admin: 12/28/17 17:28 Dose: 70 mls/hr Lactulose (Enulose) 20 gm PO TID [facility] Last Admin: 12/28/17 17:28 Dose: 20 gm Pantoprazole Sodium (Protonix Inj) 40 mg IVP Q12H [facility] Last Admin: 12/29/17 04:11 Dose: 40 mg Pentoxifylline (Pentoxil) 400 mg PO TID [facility] Last Admin: 12/28/17 17:28 Dose: 400 mg Phytonadione (Vitamin K Tab) 5 mg PO DAILY [facility] Last Admin: 12/28/17 09:35 Dose: Not Given Propranolol HCl (Inderal) 5 mg PO TID [facility] Last Admin: 12/28/17 17:27 Dose: 5 mg Rifaximin (Xifaxan) 550 mg PO BID [facility] Last Admin: 12/28/17 17:28 Dose: 550 mg - Labs Labs: 12/28/17 07:58 12/28/17 07:58 PT 19.4 SECONDS (9.7-12.2) H 12/28/17 07:58 INR 1.7 12/28/17 07:58 APTT 45 SECONDS (21-34) H 12/27/17 11:31 - Constitutional Appears: No Acute Distress, Chronically Ill - Eye Exam Eye Exam: EOMI, PERRL, Scleral icterus - ENT Exam ENT Exam: Mucous Membranes Moist - Respiratory Exam Respiratory Exam: Clear to Ausculation Bilateral. absent: Rales, Rhonchi, Wheezes - Cardiovascular Exam Cardiovascular Exam: RRR, +S1, +S2 - GI/Abdominal Exam GI & Abdominal Exam: Soft, Normal Bowel Sounds. absent: Distended, Firm, Guarding, Rigid, Tenderness, Organomegaly - Extremities Exam Extremities Exam: Pedal Edema - Neurological Exam Neurological Exam: Alert, Awake, Oriented x3 Additional comments: NO asterixis - Psychiatric Exam Psychiatric exam: Normal Affect, Normal Mood - Skin Skin Exam: Dry, Warm Assessment and Plan - Assessment and Plan (Free Text) Assessment: Patient is a 36yo female with PMHx significant for decompensated EtOH cirrhosis c/b ascites, HE, jaundice and varices (on CT), ongoing EtOH abuse/dependence, alcoholic hepatitis, pancytopenia who presented to the ED brought in by her mother for acute intoxication and recent fall. -Decompensated EtOH cirrhosis -Complications of cirrhosis: coagulopathy, pancytopenia, hyperbilirubinemia -Gastric antral vascular ectasia (GAVE) -Portal hypertensive gastropathy -Hepatic encephalopathy, grade 2 - resolved -Chronic Macrocytic anemia -Alcoholic hepatitis -Acute EtOH intoxication, resolved -EtOH abuse/dependence -Left pubic bone fracture -Hypokalemia/hypomagnesemia Plan: -Suspect slow chronic blood loss is a result of portal HTN gastropathy and GAVE which are noted on EGD yesterday -No EV noted -S/P APC for GAVE - will benefit from repeat EGD in a month for repeat therapy -Still without overt blood loss -PT/INR again elevated as a result of CLD - continue to monitor -HGB stable at 7.8 -Goal HGB 7-8 -Pentoxifylline 400mg PO TID -Lactulose 20g TID - titrate to 2-3 BM/day -Rifaximin 500mg PO BID -Protonix 40mg PO QAMAC -Propranolol 5mg PO TID -LE doppler unremarkable -EtOH withdrawal prevention -Daily MELD labs -Electrolyte replacement as needed -EtOH abstinence, recommend formal rehabilitation program - psychiatry consulted *MELD-Na: 32 <Noe Rojas Y - Last Filed: 12/29/17 10:10> Objective - Vital Signs/Intake and Output Vital Signs (last 24 hours): Temp Pulse Resp BP Pulse Ox 98.8 F 88 20 127/75 97 12/29/17 04:15 12/29/17 04:15 12/29/17 04:15 12/29/17 04:15 12/29/17 04:15 Intake and Output: 12/29/17 12/29/17 06:59 18:59 Intake Total 120 Balance 120 - Medications Medications: Current Medications Gabapentin (Neurontin) 300 mg PO BID [facility] Last Admin: 12/28/17 17:27 Dose: 300 mg Folic Acid 1 mg/ Thiamine HCl 100 mg/ Multivitamins/Vitamin C 10 ml/ Dextrose 1 ,011.2 mls @ 70 mls/hr IV DAILY@1500 [facility] Last Admin: 12/28/17 17:28 Dose: 70 mls/hr Lactulose (Enulose) 20 gm PO TID [facility] Last Admin: 12/28/17 17:28 Dose: 20 gm Pantoprazole Sodium (Protonix Inj) 40 mg IVP Q12H [facility] Last Admin: 12/29/17 04:11 Dose: 40 mg Pentoxifylline (Pentoxil) 400 mg PO TID [facility] Last Admin: 12/28/17 17:28 Dose: 400 mg Phytonadione (Vitamin K Tab) 5 mg PO DAILY [facility] Last Admin: 12/28/17 09:35 Dose: Not Given Propranolol HCl (Inderal) 5 mg PO TID [facility] Last Admin: 12/28/17 17:27 Dose: 5 mg Rifaximin (Xifaxan) 550 mg PO BID [facility] Last Admin: 12/28/17 17:28 Dose: 550 mg - Labs Labs: 12/29/17 07:31 12/29/17 07:31 PT 37.0 SECONDS (9.7-12.2) H* D 12/29/17 07:31 INR 3.1 D 12/29/17 07:31 APTT 45 SECONDS (21-34) H 12/27/17 11:31 Attending/Attestation - Attestation I have personally seen and examined this patient.: Yes I have fully participated in the care of the patient.: Yes I have reviewed all pertinent clinical information, including history, physical exam and plan: Yes Notes (Text): 12/29/17 10:06 I have seen and examined patient with GI fellow. No acute events overnight, she is seen resting in bed comfortably. She denies abdominal pain, nausea, vomiting, fever/chills. No bowel movements overnight. Tolerating PO diet without difficulty. Review of vitals from today are normal. ETOH decompensated cirrhosis Anemia s/p EGD yesterday showing GAVE s/p APC therapy - Low sodium diet as tolerated - H/H stable, continue to monitor, avoid overtransfusion in cirrhotic patient - Continue with PPI therapy - Continue with trental for period of one month - Continue to monitor LFTs, INR - Continue with lactulose/xifaxan therapy for HE prevention - ETOH cessation counseling - No further planned GI interventions, will sign off case. Patient requires outpatient follow up and eventual referral to tertiary care transplant facility when she is able to maintain period of sobriety. Please reconsult as necessary , thank you.
[2017-12-29 07:42] LABS: INR 3.1
[2017-12-29 07:48] LABS: BASO % 0.4 % (0.0-2.0); HEMOGLOBIN 7.8 g/dL (11.0-16.0); LYMPH # 1.2 K/uL (1.0-4.3); LYMPH % 27.1 % (20.0-40.0); MEAN CORPUSCULAR HEMOGLOBIN 32.3 pg (27.0-31.0); MEAN CORPUSCULAR HGB CONC 34.3 g/dL (33.0-37.0); MEAN PLATELET VOLUME 10.4 fL (7.2-11.7); MONO # 0.5 K/uL (0.0-0.8); MONO % 10.7 % (0.0-10.0); NEUT # 2.7 K/uL (1.8-7.0); NEUT % 60.8 % (50.0-75.0); NRBC % 0.2 % (0.0-2.0); RBC 2.42 Mil/uL (3.80-5.20); RED CELL DISTRIBUTION WIDTH 24.6 % (11.5-14.5); WHITE BLOOD COUNT 4.5 K/uL (4.8-10.8)
[2017-12-29 08:09] LABS: ALB/GLOB RATIO 0.6 (1.0-2.1); ALBUMIN 2.6 g/dL (3.5-5.0); ALT/SGPT 24 U/L (9-52); AST/SGOT 40 U/L (14-36); BLOOD UREA NITROGEN 8 mg/dL (7-17); CALCIUM 7.7 mg/dl (8.6-10.4); GFR AFRICAN-AMERICAN > 60; GFR NON-AFRICAN AMERICAN > 60
[2017-12-29] MEDS ORDERED: Magnesium Sulfate 1 gm in D5W 1 GM/100 ML BAG IVPB ONE (09:29)
--- NOTE | 2017-12-29 09:32 | CP.PCM.PN ---
Subjective - Date & Time of Evaluation Date of Evaluation: 12/29/17 Time of Evaluation: 09:31 - Subjective Subjective: Patient had evidence of portal gastropathy. Patient underwent upper endoscopy yesterday. CT of the abdomen earlier showing evidence of diffuse retroperitoneal venous dilatation. Patient is currently feeling okay, she has no chest pain or shortness of breath no nausea vomiting eating well Vital signs reviewed No neck vein distention noted Chest good air entry bilaterally, no wheezing or rales noted CVS regular heart sound, no murmur noted Abdomen soft, nontender. Extremities no pedal edema [employer] alert awake oriented -3, no functional neurological deficit Hemoglobin 7.8 INR is 3.1 Patient is a 37-year-old female with a history of alcoholic abuse, alcoholic liver disease advanced liver cirrhosis associated with varicose veins. Patient has a chronic GI bleed and associated with a severe anemia. Coagulopathy. Closely monitor the hemoglobin, will watch it and possibly if it is stable patient can be discharged home in few days. Will follow-up the patient Objective - Vital Signs/Intake and Output Vital Signs (last 24 hours): Temp Pulse Resp BP Pulse Ox 98.8 F 88 20 127/75 97 12/29/17 04:15 12/29/17 04:15 12/29/17 04:15 12/29/17 04:15 12/29/17 04:15 Intake and Output: 12/29/17 12/29/17 06:59 18:59 Intake Total 120 Balance 120 - Medications Medications: Current Medications Gabapentin (Neurontin) 300 mg PO BID [facility] Last Admin: 12/28/17 17:27 Dose: 300 mg Folic Acid 1 mg/ Thiamine HCl 100 mg/ Multivitamins/Vitamin C 10 ml/ Dextrose 1 ,011.2 mls @ 70 mls/hr IV DAILY@1500 [facility] Last Admin: 12/28/17 17:28 Dose: 70 mls/hr Magnesium Sulfate/Dextrose (Magnesium Sulfate 1 Gm/100 Ml D5w) 1 gm in 100 mls @ 200 mls/hr IVPB ONCE ONE Stop: 12/29/17 09:58 Lactulose (Enulose) 20 gm PO TID [facility] Last Admin: 12/28/17 17:28 Dose: 20 gm Pantoprazole Sodium (Protonix Inj) 40 mg IVP Q12H [facility] Last Admin: 12/29/17 04:11 Dose: 40 mg Pentoxifylline (Pentoxil) 400 mg PO TID [facility] Last Admin: 12/28/17 17:28 Dose: 400 mg Phytonadione (Vitamin K Tab) 5 mg PO DAILY [facility] Last Admin: 12/28/17 09:35 Dose: Not Given Potassium Chloride (Potassium Chloride Oral Soln) 40 meq PO ONCE ONE Stop: 12/29/17 10:01 Propranolol HCl (Inderal) 5 mg PO TID [facility] Last Admin: 12/28/17 17:27 Dose: 5 mg Rifaximin (Xifaxan) 550 mg PO BID [facility] Last Admin: 12/28/17 17:28 Dose: 550 mg - Labs Labs: 12/29/17 07:31 12/29/17 07:31 PT 37.0 SECONDS (9.7-12.2) H* D 12/29/17 07:31 INR 3.1 D 12/29/17 07:31 APTT 45 SECONDS (21-34) H 12/27/17 11:31
[2017-12-29] MEDS ORDERED: Potassium Chloride 20 mEq/15 ml LIQ UD PO ONE (10:00)
[2017-12-29] MEDS: Propranolol 5 mg Tab PO SCH ×3 (10:13→17:45)
[2017-12-29] MEDS: Phytonadione 2.5 MG/0.5 TAB TAB PO SCH (10:17)
[2017-12-29] MEDS: Folic Acid 1 MG, Thiamine 100 MG, Multivitamin (MVI) 10 ML in Dextrose 5% In Water 1,00... IV SCH (14:51)
[2017-12-30 09:04] LABS: BASO % 0.7 % (0.0-2.0); EOS # 0.1 K/uL (0.0-0.7); EOS % 1.9 % (0.0-4.0); HEMOGLOBIN 8.5 g/dL (11.0-16.0); LYMPH # 1.5 K/uL (1.0-4.3); LYMPH % 30.8 % (20.0-40.0); MEAN CELL VOLUME 95.8 fL (81.0-99.0); MEAN CORPUSCULAR HEMOGLOBIN 32.2 pg (27.0-31.0); MEAN CORPUSCULAR HGB CONC 33.7 g/dL (33.0-37.0); MEAN PLATELET VOLUME 8.7 fL (7.2-11.7); MONO # 0.5 K/uL (0.0-0.8); MONO % 9.8 % (0.0-10.0); NEUT # 2.7 K/uL (1.8-7.0); NEUT % 56.8 % (50.0-75.0); NRBC % 0.1 % (0.0-2.0); RBC 2.65 Mil/uL (3.80-5.20); RED CELL DISTRIBUTION WIDTH 26.5 % (11.5-14.5); WHITE BLOOD COUNT 4.7 K/uL (4.8-10.8)
[2017-12-30 09:05] LABS: ALB/GLOB RATIO 0.6 (1.0-2.1); ALBUMIN 2.6 g/dL (3.5-5.0); ALT/SGPT 24 U/L (9-52); AST/SGOT 43 U/L (14-36); BLOOD UREA NITROGEN 4 mg/dL (7-17); CALCIUM 7.9 mg/dl (8.6-10.4); GFR AFRICAN-AMERICAN > 60; GFR NON-AFRICAN AMERICAN > 60
[2017-12-30 09:13] LABS: PROTHROMBIN TIME 35.6 SECONDS (9.7-12.2)
[2017-12-30 09:18] VITALS: TEMP 98.6; O2SAT 97
[2017-12-30] MEDS: Propranolol 5 mg Tab PO SCH ×2 (10:23→13:27)
[2017-12-30] MEDS: Phytonadione 2.5 MG/0.5 TAB TAB PO SCH (10:24)
[2017-12-30] MEDS ORDERED: Potassium Chloride 20 mEq/15 ml LIQ UD PO ONE (10:30)
[2017-12-30] MEDS ORDERED: Magnesium Sulfate 1 gm in D5W 1 GM/100 ML BAG IVPB ONE (10:30)
--- NOTE | 2017-12-30 12:57 | CP.PCM.DIS ---
Provider - Provider Date of Admission: 12/26/17 01:10 Attending physician: Dede Ivory MD Primary care physician: Dede Ivory MD Time Spent in preparation of Discharge (in minutes): 45 Hospital Course - Lab Results Lab Results: Micro Results 12/26/17 11:50 Blood Blood Culture - Preliminary NO GROWTH AFTER 4 DAYS 12/26/17 11:50 Blood Blood Culture - Preliminary NO GROWTH AFTER 4 DAYS 12/26/17 Unknown Urine,Clean Catch Urine Culture - Final No Growth (<1,000 CFU/ML) Most Recent Lab Values WBC 4.7 K/uL (4.8-10.8) L 12/30/17 08:43 RBC 2.65 Mil/uL (3.80-5.20) L 12/30/17 08:43 Hgb 8.5 g/dL (11.0-16.0) L 12/30/17 08:43 Hct 25.4 % (34.0-47.0) L 12/30/17 08:43 MCV 95.8 fL (81.0-99.0) 12/30/17 08:43 MCH 32.2 pg (27.0-31.0) H 12/30/17 08:43 MCHC 33.7 g/dL (33.0-37.0) 12/30/17 08:43 RDW 26.5 % (11.5-14.5) H 12/30/17 08:43 Plt Count 63 K/uL (130-400) L 12/30/17 08:43 MPV 8.7 fL (7.2-11.7) 12/30/17 08:43 Neut % (Auto) 56.8 % (50.0-75.0) 12/30/17 08:43 Lymph % (Auto) 30.8 % (20.0-40.0) 12/30/17 08:43 [place] % (Auto) 9.8 % (0.0-10.0) 12/30/17 08:43 Eos % (Auto) 1.9 % (0.0-4.0) 12/30/17 08:43 Baso % (Auto) 0.7 % (0.0-2.0) 12/30/17 08:43 Neut # (Auto) 2.7 K/uL (1.8-7.0) 12/30/17 08:43 Lymph # (Auto) 1.5 K/uL (1.0-4.3) 12/30/17 08:43 [place] # (Auto) 0.5 K/uL (0.0-0.8) 12/30/17 08:43 Eos # (Auto) 0.1 K/uL (0.0-0.7) 12/30/17 08:43 Baso # (Auto) 0.0 K/uL (0.0-0.2) 12/30/17 08:43 PT 35.6 SECONDS (9.7-12.2) H* 12/30/17 08:43 INR 3.0 12/30/17 08:43 APTT 45 SECONDS (21-34) H 12/27/17 11:31 Sodium 135 mmol/L (132-148) 12/30/17 08:43 Potassium 3.5 mmol/L (3.6-5.2) L 12/30/17 08:43 Chloride 104 mmol/L (98-107) 12/30/17 08:43 Carbon Dioxide 21 mmol/L (22-30) L 12/30/17 08:43 Anion Gap 13 (10-20) 12/30/17 08:43 BUN 4 mg/dL (7-17) L 12/30/17 08:43 Creatinine 0.5 mg/dL (0.7-1.2) L 12/30/17 08:43 Est GFR ( Amer) > 60 12/30/17 08:43 Est GFR (Non-Af Amer) > 60 12/30/17 08:43 POC Glucose (mg/dL) 89 mg/dL (65-110) 12/27/17 12:00 Random Glucose 107 mg/dL (65-105) H 12/30/17 08:43 Calcium 7.9 mg/dl (8.6-10.4) L 12/30/17 08:43 Phosphorus 3.2 mg/dL (2.5-4.5) 12/27/17 11:31 Magnesium 1.6 mg/dL (1.6-2.3) 12/28/17 07:58 Total Bilirubin 16.3 mg/dL (0.2-1.3) H 12/30/17 08:43 AST 43 U/L (14-36) H 12/30/17 08:43 ALT 24 U/L (9-52) 12/30/17 08:43 Alkaline Phosphatase 160 U/L (38-126) H D 12/30/17 08:43 Ammonia 33 umol/L (9-33) D 12/30/17 08:43 Troponin I 0.0350 ng/mL (0.00-0.120) 12/26/17 00:08 NT-Pro-B Natriuret Pep 146 pg/mL (0-450) 12/26/17 00:08 Total Protein 7.0 g/dL (6.3-8.3) 12/30/17 08:43 Albumin 2.6 g/dL (3.5-5.0) L 12/30/17 08:43 Globulin 4.5 gm/dL (2.2-3.9) H 12/30/17 08:43 Albumin/Globulin Ratio 0.6 (1.0-2.1) L 12/30/17 08:43 Lipase 134 U/L (23-300) 12/26/17 00:08 Urine HCG, Qual Negative (NEGATIVE) 12/28/17 07:13 Stool Occult Blood Positive (NEGATIVE) H 12/26/17 22:08 Urine Opiates Screen Negative (NEGATIVE) 12/25/17 23:35 Urine Methadone Screen Negative (NEGATIVE) 12/25/17 23:35 Ur Barbiturates Screen Negative (NEGATIVE) 12/25/17 23:35 Ur Phencyclidine Scrn Negative (NEGATIVE) 12/25/17 23:35 Ur Amphetamines Screen Negative (NEGATIVE) 12/25/17 23:35 U Benzodiazepines Scrn Negative (NEGATIVE) 12/25/17 23:35 U Oth Cocaine Metabols Negative (NEGATIVE) 12/25/17 23:35 U Cannabinoids Screen Negative (NEGATIVE) 12/25/17 23:35 Alcohol, Quantitative 202 mg/dl (0-10) H 12/26/17 00:08 Blood Type B POSITIVE 12/25/17 23:35 Antibody Screen Negative 12/25/17 23:35 - Hospital Course Hospital Course: Chief complaint: Left hip pain HPI: 36-year-old female with a history of alcoholic abuse, liver cirrhosis and esophageal varices. Patient came to the emergency room after she was slipped and fall from the chair , injury to the left hip. Patient now receiving blood transfusion. She is more awake and responding. Complaint of pain in the left hip. She did not remember how that happened. She continues to drink beers daily, but she does not remember exactly what happened. Currently having no headache. But complaining of abdominal pain. She denies any chest pain. No recent cold or cough. She does not have any nausea. No vomiting noted. Complaint of no bleeding Past medical history: Liver disease, alcoholism, anemia, smoking Surgical history: None Personal history: Continues to drink alcohol. Denies any drugs, but smoking noted almost one pack per day Review of systems: Denies any headache, no visual symptoms, complaining of weakness, tiredness, chest tightness, sometimes shortness of breath, also complaining of some abdomen pain, constipation present, leg swelling also noted patient complaining of left hip pain following a fall yesterday Family history: Father had heart disease, recently had a stent, mother is has anxiety, siblings 1 brother and one sister they are healthy, patient has 2 kids and they're healthy Social history: Patient is currently drinking alcohol almost to 2 cans of beer daily for 15 years, in the weekends she drinks even more, for the last 2 weeks that she's not drinking, she used to smoke, currently she smoking 2 cigarettes per day, 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 Chest bilateral good air entry, CVS regular heart sound, pedal edema noted patient's labs reviewed. Severe anemia noted Elevated INR noted Patient also has fracture of the left pubic rami fracture noted Assessment/recommendation: patient had a fall, and injury. Pelvic ring fracture noted. Nondisplaced. Conservative treatment 35-year-old female now admitted with the severe anemia but no active bleeding noted at this time. coagulopathy present secondary to alcohol liver disease Low albumin secondary to liver disease. Patient will need a transfusion. Protonix. Alcoholic detoxification, psychotic evaluation, benzodiazepines. Patient's overall prognosis is poor. Spoke to the family in details. IV fluids with the vitamin thiamine and folate again patient was explained. We will watch DTs Course in the Hospital: Patient's pelvic x-ray showing evidence of left pubic a fracture. Conservative treatment for that. Patient also had a severe anemia, the stool guaiac-positive. Received blood transfusion, and FFP Patient underwent upper endoscopy, showing evidence of diffuse gastric vascular ectasia, causing possibly the chronic bleeding, and causing the anemia. Patient previous CAT scan of the abdomen showing diffuse retroperitoneal venous dilatation, and also varicosities. Today patient is clinically feeling better, eating well, no shaking or tremor noted. Discussed with the patient today, about the discharge plan. Clinically otherwise nonspecific, she will be discharged home today, she will follow-up as an outpatient Medications reviewed Patient should be taking Lasix, Aldactone, propranolol, and other liver medications. Medications reviewed and reconciled. Patient will be discharged home today, I will follow-up as an outpatient.F/U with GI Final diagnosis: Alcoholic liver disease, acute GI bleed with chronic GI bleed, variceal bleeding. 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 Coagulopathy. Discharge Plan - Discharge Medications Prescriptions: Spironolactone [Aldactone] 25 mg PO DAILY #30 tab Lactulose [Enulose] 20 gm PO BID #200 udc Propranolol [Inderal] 5 mg PO TID #90 tab Furosemide [Lasix] 20 mg PO DAILY #30 tab Multivitamin [Multi-Vitamin Daily] 1 each PO DAILY #30 tablet Gabapentin [Neurontin] 300 mg PO BID #60 cap Pentoxifylline [Pentoxil] 400 mg PO TID #90 ter Pantoprazole Sodium [Protonix] 40 mg PO DAILY #30 ect rifAXIMin [Xifaxan] 550 mg PO BID #60 tab - Follow Up Plan Condition: FAIR Disposition: HOME/ ROUTINE Referrals: Dede Ivory MD [Primary Care Provider] -
[2017-12-30 13:27] VITALS: BP 136/77; PULSE 80
== END 2017-12-30 15:07 | disposition home or self-care (01) | DRG 897 ==
LOC: SUPCPDRO 19:10 → C.ER 19:10 → C.9E 12-26 01:10 → C.6T 12-26 13:37
PROVIDERS: ADMIT Internal Medicine; ATTEND Internal Medicine
PROC: 30233L1 Transfusion of Nonautologous Fresh Plasma into Peripheral Vein, Percutaneous Approach (ICD-10-PCS; principal; 2017-12-26)
PROC: HZ2ZZZZ Detoxification Services for Substance Abuse Treatment (ICD-10-PCS; 2017-12-26)
PROC: 0DJ08ZZ Inspection of Upper Intestinal Tract, Via Natural or Artificial Opening Endoscopic (ICD-10-PCS; 2017-12-28)
DX: F10.229 Alcohol dependence with intoxication, unspecified (principal); D61.818 Other pancytopenia; D68.4 Acquired coagulation factor deficiency; S32.592A Other specified fracture of left pubis, initial encounter for closed fracture; I85.10 Secondary esophageal varices without bleeding; E83.42 Hypomagnesemia; K76.6 Portal hypertension; W07.XXXA Fall from chair, initial encounter; F10.239 Alcohol dependence with withdrawal, unspecified; D53.9 Nutritional anemia, unspecified; D64.9 Anemia, unspecified; K70.31 Alcoholic cirrhosis of liver with ascites; K70.11 Alcoholic hepatitis with ascites; Y90.7 Blood alcohol level of 200-239 mg/100 ml; F17.210 Nicotine dependence, cigarettes, uncomplicated; Z91.14 Patient's other noncompliance with medication regimen; K70.40 Alcoholic hepatic failure without coma; E87.6 Hypokalemia; K31.819 Angiodysplasia of stomach and duodenum without bleeding; E83.119 Hemochromatosis, unspecified; K31.89 Other diseases of stomach and duodenum

== ENCOUNTER 2018-03-11 17:51 | Inpatient (IN) | payer MEDICAID ==
[2018-03-11] MEDS ORDERED: Albuterol 0.083% Inhal Sol (2.5 mg/3 mL) UD INH STA (19:08)
[2018-03-11] MEDS ORDERED: PrednisoLONE 6 MG/2 ML SYR PO STA (19:08)
--- NOTE | 2018-03-11 19:11 | C.PDOC ---
History Of Present Illness 37 y/o female, w/PMHx of bronchial asthma, complaining of SOB x 1 week .Denies having fever, sputum production. Patient reports that she has hx of daily ETOH abuse as she drink at least 3 beers each day. Pt appears intoxicated during interview. PCP: Dr. Ivory Chief Complaint (Nursing): Shortness Of Breath History Per: Patient History/Exam Limitations: intoxication Onset/Duration Of Symptoms: Days Current Symptoms Are (Timing): Still Present Severity: Moderate Past Medical History Reviewed: Historical Data, Nursing Documentation, Vital Signs Vital Signs: Last Vital Signs Temp 98.1 F 03/12/18 06:03 Pulse 105 H 03/12/18 06:03 Resp 20 03/12/18 06:03 BP 137/91 H 03/12/18 06:03 Pulse Ox 98 03/12/18 02:44 - Medical History PMH: Anemia Denies: Chronic Kidney Disease Surgical History: No Surg Hx - [facility] Procedures CLOSED ENDOSCOPIC BIOPSY OF LARGE INTESTINE (02/01/15) DETOXIFICATION SERVICES FOR SUBSTANCE ABUSE TREATMENT (12/26/17) GROUP HYDRAULIC STRAINER OPERATOR FOR SUBSTANCE ABUSE TREATMENT, PSYCHOEDUCATION (08/24/16) INSPECTION OF UPPER INTESTINAL TRACT, ENDO (12/26/17) PACKED CELL TRANSFUSION (02/01/15) TRANSFUSE NONAUT FRESH PLASMA IN PERIPH VEIN, PERC (12/26/17) TRANSFUSE NONAUT PLATELETS IN PERIPH VEIN, PERC (05/29/17) TRANSFUSE NONAUT RED BLOOD CELLS IN PERIPH VEIN, PERC (05/29/17) Family History: States: No Known Family Hx - Social History Hx Tobacco Use: Yes Hx Alcohol Use: Yes Hx Substance Use: No - Immunization History Hx Tetanus Toxoid Vaccination: No Hx Influenza Vaccination: No Hx Pneumococcal Vaccination: No Review Of Systems Except As Marked, All Systems Reviewed And Found Negative. Constitutional: Negative for: Fever, Chills Respiratory: Positive for: Shortness of Breath. Negative for: Cough Physical Exam - Physical Exam Appears: No Acute Distress, Other (awake, alert , oriented x 3) Skin: Normal Color, Warm, Dry Head: Atraumatic, Normacephalic Eye(s): bilateral: Scleral Icterus Nose: Normal Oral Mucosa: Moist Neck: Supple Chest: Symmetrical Cardiovascular: Rhythm Regular Respiratory: Normal Breath Sounds, No Rales, No Rhonchi, No Wheezing Gastrointestinal/Abdominal: Normal Exam, Soft, No Tenderness Extremity: Other (distal pulses (+2)) Neurological/Psych: Oriented x3, Normal Speech ED Course And Treatment - Laboratory Results Result Diagrams: 03/11/18 19:37 03/11/18 19:37 O2 Sat by Pulse Oximetry: 98 (RA) Pulse Ox Interpretation: Normal Medical Decision Making Medical Decision Making: Impression: Dyspnea on EXertion r/o asthma exacerbation ETOH intoxication Plan: --Labs --CXR --Albuterol Disposition - Disposition Disposition: HOSPITALIZED Disposition Time: 21:27 Condition: FAIR - Clinical Impression Clinical Impression: Severe anemia - Scribe Statement The provider has reviewed the documentation as recorded by the Danelle Ruff Provider Attestation: All medical record entries made by the Danelle were at my direction and personally dictated by me. I have reviewed the chart and agree that the record accurately reflects my personal performance of the history, physical exam, medical decision making, and the department course for this patient. I have also personally directed, reviewed, and agree with the discharge instructions and disposition.
[2018-03-11] MEDS ORDERED: Albuterol-Ipratrop 3 mg / 0.5 (3 ml) UD ONE (19:27)
[2018-03-11] MEDS ORDERED: PrednisoLONE 15 mg/5 ml Oral Syrup (240 ml) ONE (19:27)
[2018-03-11 19:42] LABS: BASO % 0.3 % (0.0-2.0); EOS # 0.1 K/uL (0.0-0.7); EOS % 2.4 % (0.0-4.0); LYMPH # 1.7 K/uL (1.0-4.3); LYMPH % 40.6 % (20.0-40.0); MEAN CORPUSCULAR HEMOGLOBIN 37.1 pg (27.0-31.0); MEAN CORPUSCULAR HGB CONC 33.1 g/dL (33.0-37.0); MEAN PLATELET VOLUME 10.1 fL (7.2-11.7); MONO # 0.4 K/uL (0.0-0.8); MONO % 9.8 % (0.0-10.0); NEUT # 1.9 K/uL (1.8-7.0); NEUT % 46.9 % (50.0-75.0); NRBC % 0.2 % (0.0-2.0); RBC 1.9 Mil/uL (3.80-5.20); WHITE BLOOD COUNT 4.1 K/uL (4.8-10.8)
[2018-03-11 19:50] LABS: MEAN CELL VOLUME 111.9 fL (81.0-99.0)
[2018-03-11 19:52] LABS: CALCIUM 6.8 mg/dl (8.6-10.4); GFR AFRICAN-AMERICAN > 60; GFR NON-AFRICAN AMERICAN > 60
[2018-03-11 19:54] LABS: ALB/GLOB RATIO 0.5 (1.0-2.1); ALBUMIN 2.6 g/dL (3.5-5.0); ALT/SGPT 28 U/L (9-52); AST/SGOT 175 U/L (14-36); BLOOD UREA NITROGEN 4 mg/dL (7-17)
[2018-03-11] MEDS ORDERED: Multivitamin (MVI) 10 ML, Thiamine 100 MG, Folic Acid 1 MG in Sodium Chloride 0.9% 1,00... IV ONE (21:31)
--- NOTE | 2018-03-11 21:42 | CP.PCM.HP ---
History of Present Illness - History of Present Illness History of Present Illness: Chief complaint: SOB HPI: 37-year-old female with a history of alcoholic abuse, liver cirrhosis and esophageal varices. Patient came to the emergency room because of sob and weakness and weeping leg swelling both sides. continue to drink beer on and off having abdominal swelling no nausea no vomiting she has no bleeding noted in the stools no fever she came to office last week with swelling in the legs and sob Past medical history: Liver disease, alcoholism, anemia, smoking, h/o fall and pelvic fracture in the past Surgical history: None Personal history: Continues to drink alcohol. Denies any drugs, but smoking noted almost one pack per day Review of systems: Denies any headache, no visual symptoms, complaining of weakness, tiredness, chest tightness, sometimes shortness of breath, also complaining of some abdomen pain, constipation present, leg swelling also noted Family history: Father had heart disease, recently had a stent, mother is has anxiety, siblings 1 brother and one sister they are healthy, patient has 2 kids and they're healthy Social history: Patient is currently drinking alcohol almost to 2 cans of beer daily for 15 years, in the weekends she drinks even more, for the last 2 weeks that she's not drinking, she used to smoke, currently she smoking 2 cigarettes per day, 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 Chest bilateral good air entry, CVS regular heart sound, pedal edema noted patient's labs reviewed. Severe anemia noted Elevated INR noted Assessment/recommendation: 35-year-old female now admitted with the severe anemia but no active bleeding noted at this time. coagulopathy present secondary to alcohol liver disease Low albumin secondary to liver disease. Patient will need a transfusion. Protonix. Alcoholic detoxification, psychotic evaluation, benzodiazepines. Patient's overall prognosis is poor. Spoke to the family in details. IV fluids with the vitamin thiamine and folate again patient was explained. We will watch DTs Present on Admission - Present on Admission Any Indicators Present on Admission: No History of DVT/PE: No History of Uncontrolled Diabetes: No Urinary Catheter: No Decubitus Ulcer Present: No Review of Systems - Review of Systems Review of Systems: Review of systems: Denies any headache, no visual symptoms, complaining of weakness, tiredness, chest tightness, sometimes shortness of breath, also complaining of some abdomen pain, constipation present, leg swelling also noted Past Patient History - Infectious Disease Hx of Infectious Diseases: None - Past Medical History & Family History Past Medical History?: Yes - Past Social History Smoking Status: Light Smoker < 10 Cigarettes Daily - CARDIAC Hx Cardiac Disorders: No - PULMONARY Hx Respiratory Disorders: No - NEUROLOGICAL Hx Neurological Disorder: No - HEENT Hx HEENT Problems: No - RENAL Hx Chronic Kidney Disease: No - ENDOCRINE/METABOLIC Hx Endocrine Disorders: No - HEMATOLOGICAL/ONCOLOGICAL Hx Anemia: Yes - INTEGUMENTARY Hx Dermatological Problems: No Other/Comment: jaundice - MUSCULOSKELETAL/RHEUMATOLOGICAL Hx Falls: No - GASTROINTESTINAL Hx Gastrointestinal Disorders: Yes Other/Comment: 'LIVER PROBLEMS' - GENITOURINARY/GYNECOLOGICAL Hx Genitourinary Disorders: No - PSYCHIATRIC Hx Substance Use: No - SURGICAL HISTORY Hx Surgeries: No - ANESTHESIA Hx Anesthesia: No Meds Allergies/Adverse Reactions: Allergies Allergy/AdvReac Type Severity Reaction Status Date / Time No Known Allergies Allergy Verified 03/11/18 18:09 Physical Exam - Constitutional Additional comments: On examination: Patient is having conjunctival sclera icterus changes, anemia changes conjunctiva, bilateral pedal edema, abdominal swelling, abdominal wall swelling noted. Chest bilateral good air entry, CVS regular heart sound, pedal edema noted patient's labs reviewed. Severe anemia noted Elevated INR noted Results - Vital Signs Recent Vital Signs: Last Vital Signs Temp 97.7 F 03/11/18 21:33 Pulse 101 H 03/11/18 21:33 Resp 16 03/11/18 21:33 BP 150/90 03/11/18 21:33 Pulse Ox 97 03/11/18 21:33 - Labs Result Diagrams: 03/11/18 19:37 03/11/18 19:37 Labs: Laboratory Results - last 24 hr 03/11/18 03/11/18 19:37 19:37 WBC 4.1 L RBC 1.90 L Hgb 7.0 L Hct 21.2 L MCV 111.9 H D MCH 37.1 H MCHC 33.1 RDW 16.0 H Plt Count 68 L MPV 10.1 Neut % (Auto) 46.9 L Lymph % (Auto) 40.6 H [place] % (Auto) 9.8 Eos % (Auto) 2.4 Baso % (Auto) 0.3 Neut # (Auto) 1.9 Lymph # (Auto) 1.7 [place] # (Auto) 0.4 Eos # (Auto) 0.1 Baso # (Auto) 0.0 Differential Comment Sodium 140 Potassium 4.4 Chloride 105 Carbon Dioxide 26 Anion Gap 13 BUN 4 L Creatinine 0.5 L Est GFR ( Amer) > 60 Est GFR (Non-Af Amer) > 60 Random Glucose 112 H Calcium 6.8 L Total Bilirubin 13.2 H AST 175 H D ALT 28 Alkaline Phosphatase 276 H D Total Protein 7.9 Albumin 2.6 L Globulin 5.4 H Albumin/Globulin Ratio 0.5 L Assessment & Plan (1) Alcoholic cirrhosis of liver Status: Acute (2) Severe anemia Status: Acute (3) Coagulopathy Status: Acute (4) Jaundice Status: Acute
[2018-03-12 01:16] VITALS: RESP 20
[2018-03-12 03:49] LABS: INR 3.93 (0.92-1.08)
[2018-03-12 03:50] LABS: PROTHROMBIN TIME 43.2 SECONDS (9.7-12.2)
--- NOTE | 2018-03-12 08:01 | RAD ---
Chest x-ray single frontal view History: Shortness of breath. Comparison: 09/03/2016 Findings: Diffuse increased interstitial lung markings suggestive for edema and or infiltrate. Mild patchy increased markings at the left lung base. Bilateral hilar prominence. Tortuous aorta with calcification at the aortic knob. Mild cardiomegaly. Degenerative changes in the spine and shoulders. Impression: Diffuse increased interstitial lung markings suggestive for edema and or infiltrate. Mild patchy increased markings at the left lung base. Bilateral hilar prominence. Tortuous aorta with calcification at the aortic knob. Mild cardiomegaly.
--- NOTE | 2018-03-12 09:27 | CP.PCM.CON ---
<Chery Arora - Last Filed: 03/12/18 09:36> History of Present Illness - History of Present Illness History of Present Illness: Initial PGY4 GI Consult Ani is a 36yo female with PMHx significant for decompensated EtOH cirrhosis c/b HE, jaundice and varices (on CT), ongoing EtOH abuse/dependence, alcoholic hepatitis, pancytopenia who presented to the ED for sob and weakness and weeping leg swelling both sides. The patient is a poor historian. She notes that she has been increasing becoming SOB at rest and exertion. She also notes a 13 pound weigh gain since her last admission. she does also admit to an improved appetite. Denies any pain or discomfort aside from her LLE. No recent hematochezia, melena, nausea, vomiting, hematemesis, fever, chills, abdominal distention. She admits to ongoing EtOH use (last drink 2-3 weeks ago) to "help her sleep" as she has not be able to fall asleep at night for several months. The patient was last seen in 12/2017 for similar issues and did not follow up with any providers after hospitalization. Has not completed/attempted any formal rehabilitation. Nonadherent with outpatient medical therapy. PMHx: See HPI PSHx: Discussed with patient and denies any prior surgeries FHx: Discussed with patient and denies any significant family history Social Ongoing EtOH abuse with last drink on day of arrival (12/25/17), +tobacco use daily, denies illicit drug use Endo: 12/2017; EGD0 GAVE s/p argon; no varices, + portal hypertensive gastropathy 02/2015 - EGD - gastritis, hiatal hernia, portal hypertensive gastropathy 02/2015 - Colon - 1 sigmoid tubular adenoma removed, large internal/external hemorrhoids 12 system ROS performed and negative except where stated Past Patient History - Infectious Disease Hx of Infectious Diseases: None - Past Medical History & Family History Past Medical History?: Yes - Past Social History Smoking Status: Current Some Days Smoker - CARDIAC Hx Cardiac Disorders: No - PULMONARY Hx Respiratory Disorders: No Hx Asthma: Yes - NEUROLOGICAL Hx Neurological Disorder: No - HEENT Hx HEENT Problems: No - RENAL Hx Chronic Kidney Disease: No - ENDOCRINE/METABOLIC Hx Endocrine Disorders: No - HEMATOLOGICAL/ONCOLOGICAL Hx Anemia: Yes - INTEGUMENTARY Hx Dermatological Problems: No Other/Comment: jaundice - MUSCULOSKELETAL/RHEUMATOLOGICAL Hx Falls: Yes - GASTROINTESTINAL Hx Gastrointestinal Disorders: Yes Other/Comment: 'LIVER PROBLEMS' - GENITOURINARY/GYNECOLOGICAL Hx Genitourinary Disorders: No - PSYCHIATRIC Hx Substance Use: No - SURGICAL HISTORY Hx Surgeries: No - ANESTHESIA Hx Anesthesia: Yes Hx Anesthesia Reactions: No Hx Malignant Hyperthermia: No Has any member of the family had a problem w/ anesthesia?: No Meds Allergies/Adverse Reactions: Allergies Allergy/AdvReac Type Severity Reaction Status Date / Time No Known Allergies Allergy Verified 03/11/18 18:09 - Medications Medications: Current Medications Furosemide (Lasix) 20 mg PO Q12 [facility] Last Admin: 03/11/18 23:16 Dose: 20 mg Gabapentin (Neurontin) 300 mg PO BID [facility] Lactulose (Enulose) 20 gm PO BID [facility] Multivitamins (Hexavitamin) 1 tab PO DAILY [facility] Pantoprazole Sodium (Protonix Inj) 40 mg IVP Q12H [facility] Last Admin: 03/11/18 23:15 Dose: 40 mg Pentoxifylline (Pentoxil) 400 mg PO TID [facility] Phytonadione (Vitamin K Tab) 5 mg PO DAILY [facility] Propranolol HCl (Inderal) 5 mg PO TID [facility] Rifaximin (Xifaxan) 550 mg PO BID [facility] PRN Reason: Protocol Spironolactone (Aldactone) 25 mg PO DAILY [facility] Physical Exam - Constitutional Appears: Well, No Acute Distress, Chronically Ill - Head Exam Head Exam: ATRAUMATIC, NORMOCEPHALIC - Eye Exam Eye Exam: Scleral icterus - ENT Exam ENT Exam: Mucous Membranes Moist, Normal Exam - Neck Exam Neck exam: Positive for: Normal Inspection - Respiratory Exam Respiratory Exam: Rhonchi, Wheezes, NORMAL BREATHING PATTERN. absent: Accessory Muscle Use, Chest Wall Tenderness, Decreased Breath Sounds, Prolonged Expiratory Phase - Cardiovascular Exam Cardiovascular Exam: REGULAR RHYTHM, +S1, +S2 - GI/Abdominal Exam GI & Abdominal Exam: Normal Bowel Sounds, Organomegaly, Soft. absent: Diminished Bowel Sounds, Distended, Firm, Guarding, Hernia, Pulsatile Mass, Rebound, Rigid, Tenderness - Extremities Exam Extremities exam: Positive for: pedal edema Additional comments: edema to thighs B/L pitting - Neurological Exam Neurological exam: Alert, Oriented x3 - Psychiatric Exam Psychiatric exam: Normal Affect, Normal Mood - Skin Skin Exam: Dry, Intact, Normal Color, Warm Results - Vital Signs Recent Vital Signs: Last Vital Signs Temp 98.3 F 03/12/18 08:00 Pulse 104 H 03/12/18 08:00 Resp 20 03/12/18 08:00 BP 148/83 03/12/18 08:00 Pulse Ox 96 03/12/18 08:00 - Labs Result Diagrams: 03/11/18 19:37 03/11/18 19:37 Labs: Laboratory Results - last 24 hr 03/11/18 03/11/18 03/11/18 19:37 19:37 22:04 WBC 4.1 L RBC 1.90 L Hgb 7.0 L Hct 21.2 L MCV 111.9 H D MCH 37.1 H MCHC 33.1 RDW 16.0 H Plt Count 68 L MPV 10.1 Neut % (Auto) 46.9 L Lymph % (Auto) 40.6 H [place] % (Auto) 9.8 Eos % (Auto) 2.4 Baso % (Auto) 0.3 Neut # (Auto) 1.9 Lymph # (Auto) 1.7 [place] # (Auto) 0.4 Eos # (Auto) 0.1 Baso # (Auto) 0.0 Differential Comment PT INR APTT Sodium 140 Potassium 4.4 Chloride 105 Carbon Dioxide 26 Anion Gap 13 BUN 4 L Creatinine 0.5 L Est GFR ( Amer) > 60 Est GFR (Non-Af Amer) > 60 Random Glucose 112 H Calcium 6.8 L Total Bilirubin 13.2 H AST 175 H D ALT 28 Alkaline Phosphatase 276 H D Total Protein 7.9 Albumin 2.6 L Globulin 5.4 H Albumin/Globulin Ratio 0.5 L Blood Type B POSITIVE Antibody Screen Negative 03/11/18 22:09 WBC RBC Hgb Hct MCV MCH MCHC RDW Plt Count MPV Neut % (Auto) Lymph % (Auto) [place] % (Auto) Eos % (Auto) Baso % (Auto) Neut # (Auto) Lymph # (Auto) [place] # (Auto) Eos # (Auto) Baso # (Auto) Differential Comment PT 43.2 H* INR 3.93 H APTT 50 H Sodium Potassium Chloride Carbon Dioxide Anion Gap BUN Creatinine Est GFR ( Amer) Est GFR (Non-Af Amer) Random Glucose Calcium Total Bilirubin AST ALT Alkaline Phosphatase Total Protein Albumin Globulin Albumin/Globulin Ratio Blood Type Antibody Screen Assessment & Plan - Assessment and Plan (Free Text) Assessment: Patient is a 36yo female with PMHx significant for decompensated EtOH cirrhosis c/b ascites, HE, jaundice and varices (on CT), ongoing EtOH abuse/dependence, alcoholic hepatitis, pancytopenia who presented to the ED for SOB. -Complications of cirrhosis: coagulopathy, pancytopenia, hyperbilirubinemia -Gastric antral vascular ectasia (GAVE) -Portal hypertensive gastropathy -Hepatic encephalopathy -Hx of Decompensated EtOH cirrhosis -Chronic Macrocytic anemia -EtOH abuse/dependence Plan: -Suspect aneia for bone marrow suppression 2/2 ETOH use and compliaction of cirrhosis -Still without overt blood loss -PT/INR elevated -s/p 1 unit PRBC, repeat CBC pending -Goal HGB 7-8 -Lactulose 20g TID - titrate to 2-3 BM/day -Rifaximin 500mg PO BID -Protonix 40mg PO QAMAC -EtOH withdrawal prevention -Daily MELD labs -Electrolyte replacement as needed -Would benefit from diuretic therapy -EtOH abstinence, recommend formal rehabilitation program - psychiatry consulted *MELD-Na: 32 <Noe Rojas - Last Filed: 03/12/18 09:55> Meds - Medications Medications: Current Medications Furosemide (Lasix) 20 mg PO Q12 [facility] Last Admin: 03/11/18 23:16 Dose: 20 mg Gabapentin (Neurontin) 300 mg PO BID [facility] Lactulose (Enulose) 20 gm PO BID [facility] Multivitamins (Hexavitamin) 1 tab PO DAILY [facility] Pantoprazole Sodium (Protonix Inj) 40 mg IVP Q12H [facility] Last Admin: 03/11/18 23:15 Dose: 40 mg Pentoxifylline (Pentoxil) 400 mg PO TID [facility] Phytonadione (Vitamin K Tab) 5 mg PO DAILY [facility] Propranolol HCl (Inderal) 5 mg PO TID [facility] Rifaximin (Xifaxan) 550 mg PO BID [facility] PRN Reason: Protocol Spironolactone (Aldactone) 25 mg PO DAILY [facility] Results - Vital Signs Recent Vital Signs: Last Vital Signs Temp 98.3 F 03/12/18 08:00 Pulse 104 H 03/12/18 08:00 Resp 20 03/12/18 08:00 BP 148/83 03/12/18 08:00 Pulse Ox 96 05/08/18 08:00 - Labs Result Diagrams: 03/11/18 19:37 03/11/18 19:37 Labs: Laboratory Results - last 24 hr 03/11/18 03/11/18 03/11/18 19:37 19:37 22:04 WBC 4.1 L RBC 1.90 L Hgb 7.0 L Hct 21.2 L MCV 111.9 H D MCH 37.1 H MCHC 33.1 RDW 16.0 H Plt Count 68 L MPV 10.1 Neut % (Auto) 46.9 L Lymph % (Auto) 40.6 H [place] % (Auto) 9.8 Eos % (Auto) 2.4 Baso % (Auto) 0.3 Neut # (Auto) 1.9 Lymph # (Auto) 1.7 [place] # (Auto) 0.4 Eos # (Auto) 0.1 Baso # (Auto) 0.0 Differential Comment PT INR APTT Sodium 140 Potassium 4.4 Chloride 105 Carbon Dioxide 26 Anion Gap 13 BUN 4 L Creatinine 0.5 L Est GFR ( Amer) > 60 Est GFR (Non-Af Amer) > 60 Random Glucose 112 H Calcium 6.8 L Total Bilirubin 13.2 H AST 175 H D ALT 28 Alkaline Phosphatase 276 H D Total Protein 7.9 Albumin 2.6 L Globulin 5.4 H Albumin/Globulin Ratio 0.5 L Blood Type B POSITIVE Antibody Screen Negative 03/11/18 22:09 WBC RBC Hgb Hct MCV MCH MCHC RDW Plt Count MPV Neut % (Auto) Lymph % (Auto) [place] % (Auto) Eos % (Auto) Baso % (Auto) Neut # (Auto) Lymph # (Auto) [place] # (Auto) Eos # (Auto) Baso # (Auto) Differential Comment PT 43.2 H* INR 3.93 H APTT 50 H Sodium Potassium Chloride Carbon Dioxide Anion Gap BUN Creatinine Est GFR ( Amer) Est GFR (Non-Af Amer) Random Glucose Calcium Total Bilirubin AST ALT Alkaline Phosphatase Total Protein Albumin Globulin Albumin/Globulin Ratio Blood Type Antibody Screen Attending/Attestation - Attestation I have personally seen and examined this patient.: Yes I have fully participated in the care of the patient.: Yes I have reviewed all pertinent clinical information: Yes Notes (Text): 05/08/18 09:48 I have seen and examined patient with GI fellow. Agree with above documentation with the following additions. In brief, this is a 37 year old female with history of ETOH cirrhosis who presents to hospital with complaint of progressive shortness of breath and dry cough for the past two weeks. GI called for evaluation of chronic liver disease. She admits to ongoing ETOH use , last drink was approximately 3 weeks ago. She denies associated abdominal pain, nausea, vomiting, fever/chills, melena, or change in bowel habits. She reports recent increased appetite and associated weight gain of nearly 13 pounds over the past two months. She had an EGD performed in December 2017 and was treated for GAVE. ETOH decompensated cirrhosis, admission MELD 32 Cough, dyspnea Chronic anemia - Diet as tolerated - Continue to monitor H/H, s/p PRBC transfusion - Continue with lactulose therapy for HE prevention, titrate so patient has 2-3 bowel movements daily - Management of pulmonary issues as per medical team - Continue to monitor INR, administer dose of vitamin K - No planned GI intervention at this time, patient would benefit from outpatient follow up at [facility] liver clinic for ongoing management of decompensated liver disease, though patient needs to demonstrate extended period of sobriety and willingness to adhere to outpatient medication regimen. - Will continue to monitor patient clinical course, overall shelter prognosis poor given elevated MELD
[2018-03-12] MEDS ORDERED: Phytonadione 2.5 MG/0.5 TAB TAB PO SCH (10:00)
[2018-03-12] MEDS: Propranolol 5 mg Tab PO SCH ×3 (10:01→20:57)
[2018-03-12] MEDS: Multiple Vitamins Tab PO SCH (10:02)
[2018-03-12 11:33] LABS: BASO % 0.3 % (0.0-2.0); EOS % 0.3 % (0.0-4.0); HEMOGLOBIN 8.3 g/dL (11.0-16.0); LYMPH # 1.1 K/uL (1.0-4.3); LYMPH % 20.5 % (20.0-40.0); MEAN CORPUSCULAR HEMOGLOBIN 34.4 pg (27.0-31.0); MEAN CORPUSCULAR HGB CONC 34.5 g/dL (33.0-37.0); MEAN PLATELET VOLUME 8.6 fL (7.2-11.7); MONO # 0.5 K/uL (0.0-0.8); MONO % 9.2 % (0.0-10.0); NEUT # 3.8 K/uL (1.8-7.0); NEUT % 69.7 % (50.0-75.0); NRBC % 0.1 % (0.0-2.0); RBC 2.42 Mil/uL (3.80-5.20); RED CELL DISTRIBUTION WIDTH 23.8 % (11.5-14.5); WHITE BLOOD COUNT 5.4 K/uL (4.8-10.8)
[2018-03-12 11:53] LABS: MEAN CELL VOLUME 99.7 fL (81.0-99.0)
--- NOTE | 2018-03-12 19:36 | CP.PCM.PN ---
Subjective - Date & Time of Evaluation Date of Evaluation: 03/12/18 Time of Evaluation: 19:34 - Subjective Subjective: Patient is feeling better. Still having abdominal swelling, leg swelling noted. Eating slightly better. Cough noted, and shortness of breath present. No chest pain. Nausea noted, but no vomiting. Patient decided to 2 units of blood yesterday. Currently in vitamin K Objective - Vital Signs/Intake and Output Vital Signs (last 24 hours): Temp Pulse Resp BP Pulse Ox 98.5 F 81 20 132/77 97 03/12/18 15:00 03/12/18 15:00 03/12/18 15:00 03/12/18 15:00 03/12/18 15:00 Intake and Output: 03/12/18 03/13/18 18:59 06:59 Intake Total 4930 Balance 4930 Patient is having chest good air entry bilaterally irregular and also nontender abdomen. Distention of the abdomen noted. Patient is also having pedal edema Patient is alert awake oriented - Medications Medications: Current Medications Albuterol/Ipratropium (Duoneb 3 Mg/0.5 Mg (3 Ml) Ud) 3 ml INH RQ6 [facility] Furosemide (Lasix) 40 mg IVP DAILY [facility] Gabapentin (Neurontin) 300 mg PO BID [facility] Last Admin: 03/12/18 17:24 Dose: 300 mg Ceftriaxone Sodium 1 gm/ (Sodium Chloride) 100 mls @ 100 mls/hr IVPB DAILY [facility] PRN Reason: Protocol Stop: 03/16/18 10:01 Albumin Human (Albumin Human 25% (12.5 Gm/50 Ml)) 50 mls @ 100 mls/hr IV DAILY [facility] Stop: 03/15/18 10:29 Lactulose (Enulose) 20 gm PO BID [facility] Last Admin: 03/12/18 17:23 Dose: 20 gm Multivitamins (Hexavitamin) 1 tab PO DAILY [facility] Last Admin: 03/12/18 10:02 Dose: 1 tab Pantoprazole Sodium (Protonix Inj) 40 mg IVP Q12H [facility] Last Admin: 03/12/18 10:01 Dose: 40 mg Pentoxifylline (Pentoxil) 400 mg PO TID [facility] Last Admin: 03/12/18 17:24 Dose: 400 mg Phytonadione (Vitamin K Tab) 5 mg PO DAILY [facility] Last Admin: 03/12/18 12:02 Dose: 5 mg Prednisone (Prednisone Tab) 20 mg PO DAILY [facility] Propranolol HCl (Inderal) 5 mg PO TID [facility] Last Admin: 03/12/18 13:30 Dose: 5 mg Rifaximin (Xifaxan) 550 mg PO BID [facility] PRN Reason: Protocol Last Admin: 03/12/18 17:23 Dose: 550 mg Spironolactone (Aldactone) 25 mg PO DAILY [facility] Last Admin: 03/12/18 10:02 Dose: 25 mg - Labs Labs: 03/12/18 11:24 03/11/18 19:37 PT 43.2 SECONDS (9.7-12.2) H* 03/11/18 22:09 INR 3.93 (0.92-1.08) H 03/11/18 22:09 APTT 50 SECONDS (21-34) H 03/11/18 22:09 Assessment and Plan (1) Alcoholic cirrhosis of liver Assessment & Plan: Patient with alcoholic liver disease in the liver cirrhosis and ascites. Fluid overload noted. Elevated INR. Currently in vitamin K. We'll monitor the H&H tomorrow. I added albumin, and Lasix once a day to reduce the fluid. Also emphatically started to ceftriaxone for possible SBP. Patient also has a possible bronchitis. Inhaled albuterol, and low dose steroids started will follow the patient Status: Acute (2) Severe anemia Status: Acute (3) Coagulopathy Status: Acute (4) Jaundice Status: Acute
[2018-03-12] MEDS: Albuterol-Ipratrop 3 mg / 0.5 (3 ml) UD INH SCH (20:00)
[2018-03-12] MEDS ORDERED: traZODone 25 mg Tab PO ONE (21:47)
[2018-03-13] MEDS: Albuterol-Ipratrop 3 mg / 0.5 (3 ml) UD INH SCH ×4 (02:25→19:39)
[2018-03-13 08:27] LABS: BASO % 0.4 % (0.0-2.0); EOS # 0.1 K/uL (0.0-0.7); EOS % 2.6 % (0.0-4.0); HEMOGLOBIN 9.1 g/dL (11.0-16.0); LYMPH # 1.1 K/uL (1.0-4.3); LYMPH % 21.7 % (20.0-40.0); MEAN CELL VOLUME 99.9 fL (81.0-99.0); MEAN CORPUSCULAR HEMOGLOBIN 34.9 pg (27.0-31.0); MEAN CORPUSCULAR HGB CONC 34.9 g/dL (33.0-37.0); MEAN PLATELET VOLUME 9.8 fL (7.2-11.7); MONO # 0.4 K/uL (0.0-0.8); MONO % 8.3 % (0.0-10.0); NEUT # 3.3 K/uL (1.8-7.0); NRBC % 0.5 % (0.0-2.0); RBC 2.6 Mil/uL (3.80-5.20); RED CELL DISTRIBUTION WIDTH 25.3 % (11.5-14.5)
[2018-03-13 08:55] LABS: ALB/GLOB RATIO 0.4 (1.0-2.1); ALBUMIN 1.9 g/dL (3.5-5.0); ALT/SGPT 42 U/L (9-52); AST/SGOT 68 U/L (14-36); BLOOD UREA NITROGEN 6 mg/dL (7-17); CALCIUM 7.4 mg/dl (8.6-10.4); GFR AFRICAN-AMERICAN > 60; GFR NON-AFRICAN AMERICAN > 60
[2018-03-13 09:20] LABS: INR 3.9; PROTHROMBIN TIME 43.1 SECONDS (9.7-12.2)
[2018-03-13] MEDS ORDERED: Albumin Human 25% (12.5 gm/50 ml) IV SCH (10:00)
[2018-03-13] MEDS: Multiple Vitamins Tab PO SCH (10:59)
--- NOTE | 2018-03-13 11:04 | CP.PCM.PN ---
<Chery Arora - Last Filed: 03/13/18 12:25> Subjective - Date & Time of Evaluation Date of Evaluation: 03/13/18 Time of Evaluation: 08:30 - Subjective Subjective: PGY4 GI Follow-up Pt seen and examined bedside complaining of difficulty sleeping +BM tolerating diet denies any abd pain ROS: 12 point ROS conducted, neg other than above Objective - Vital Signs/Intake and Output Vital Signs (last 24 hours): Temp Pulse Resp BP Pulse Ox 98.5 F 88 20 129/82 96 03/13/18 08:00 03/13/18 08:00 03/13/18 08:00 03/13/18 08:00 03/13/18 08:00 Intake and Output: 03/13/18 03/13/18 06:59 18:59 Intake Total 400 Balance 400 - Medications Medications: Current Medications Albuterol/Ipratropium (Duoneb 3 Mg/0.5 Mg (3 Ml) Ud) 3 ml INH RQ6 [facility] Last Admin: 03/13/18 07:27 Dose: Not Given Folic Acid (Folic Acid) 1 mg PO DAILY [facility] Furosemide (Lasix) 40 mg IVP DAILY [facility] Gabapentin (Neurontin) 300 mg PO BID [facility] Last Admin: 03/12/18 17:24 Dose: 300 mg Ceftriaxone Sodium 1 gm/ (Sodium Chloride) 100 mls @ 100 mls/hr IVPB DAILY [facility] PRN Reason: Protocol Stop: 03/16/18 10:01 Albumin Human (Albumin Human 25% (12.5 Gm/50 Ml)) 50 mls @ 100 mls/hr IV DAILY [facility] Stop: 03/15/18 10:29 Lactulose (Enulose) 20 gm PO BID [facility] Last Admin: 03/12/18 17:23 Dose: 20 gm Multivitamins (Hexavitamin) 1 tab PO DAILY [facility] Last Admin: 03/12/18 10:02 Dose: 1 tab Pantoprazole Sodium (Protonix Inj) 40 mg IVP Q12H [facility] Last Admin: 03/12/18 21:42 Dose: 40 mg Pentoxifylline (Pentoxil) 400 mg PO TID [facility] Last Admin: 03/12/18 17:24 Dose: 400 mg Phytonadione (Vitamin K Tab) 5 mg PO DAILY [facility] Last Admin: 03/12/18 12:02 Dose: 5 mg Prednisone (Prednisone Tab) 20 mg PO DAILY [facility] Propranolol HCl (Inderal) 5 mg PO TID [facility] Last Admin: 03/12/18 20:57 Dose: 5 mg Rifaximin (Xifaxan) 550 mg PO BID [facility] PRN Reason: Protocol Last Admin: 03/12/18 17:23 Dose: 550 mg Spironolactone (Aldactone) 25 mg PO DAILY [facility] Last Admin: 03/12/18 10:02 Dose: 25 mg Thiamine HCl (Vitamin B1 Tab) 100 mg PO DAILY [facility] - Labs Labs: 03/13/18 08:11 03/13/18 08:11 PT 43.1 SECONDS (9.7-12.2) H* 03/13/18 08:11 INR 3.9 03/13/18 08:11 APTT 50 SECONDS (21-34) H 03/11/18 22:09 - Constitutional Appears: Well, No Acute Distress - Head Exam Head Exam: ATRAUMATIC, NORMOCEPHALIC - Eye Exam Eye Exam: Scleral icterus - ENT Exam ENT Exam: Mucous Membranes Moist, Normal Exam - Neck Exam Neck Exam: Normal Inspection - Respiratory Exam Respiratory Exam: Clear to Ausculation Bilateral, NORMAL BREATHING PATTERN. absent: Rales, Rhonchi, Wheezes, Respiratory Distress - Cardiovascular Exam Cardiovascular Exam: REGULAR RHYTHM, +S1, +S2 - GI/Abdominal Exam GI & Abdominal Exam: Soft, Normal Bowel Sounds. absent: Distended, Firm, Guarding, Rigid, Tenderness, Diminished Bowel Sounds, Organomegaly, Rebound - Extremities Exam Extremities Exam: Pedal Edema. absent: Joint Swelling - Neurological Exam Neurological Exam: Alert, Awake, Oriented x3 - Psychiatric Exam Psychiatric exam: Normal Affect, Normal Mood - Skin Skin Exam: Dry, Intact, Warm Additional comments: juandiced Assessment and Plan - Assessment and Plan (Free Text) Assessment: Patient is a 36yo female with PMHx significant for decompensated EtOH cirrhosis c/b ascites, HE, jaundice and varices (on CT), ongoing EtOH abuse/dependence, alcoholic hepatitis, pancytopenia who presented to the ED for SOB. -Complications of cirrhosis: coagulopathy, pancytopenia, hyperbilirubinemia -Gastric antral vascular ectasia (GAVE) -Portal hypertensive gastropathy -Hepatic encephalopathy -Hx of Decompensated EtOH cirrhosis -Chronic Macrocytic anemia -EtOH abuse/dependence Plan: -Suspect anemia for bone marrow suppression 2/2 ETOH use and compliaction of cirrhosis -Still without overt blood loss -PT/INR elevated -s/p 1 unit PRBC, hgb stable -Goal HGB 7-8 -Lactulose 20g TID - titrate to 2-3 BM/day -Rifaximin 500mg PO BID -Protonix 40mg PO QAMAC -EtOH withdrawal prevention -Daily MELD labs -Electrolyte replacement as needed -Would benefit from diuretic therapy -EtOH abstinence, recommend formal rehabilitation program - psychiatry consulted *MELD-Na: 32 D/W Dr. Harris <Tee Harris - Last Filed: 03/13/18 14:04> Objective - Vital Signs/Intake and Output Vital Signs (last 24 hours): Temp Pulse Resp BP Pulse Ox 98.5 F 88 20 129/82 96 03/13/18 08:00 03/13/18 08:00 03/13/18 08:00 03/13/18 11:01 03/13/18 08:00 Intake and Output: 03/13/18 03/13/18 06:59 18:59 Intake Total 400 Balance 400 - Medications Medications: Current Medications Albuterol/Ipratropium (Duoneb 3 Mg/0.5 Mg (3 Ml) Ud) 3 ml INH RQ6 [facility] Last Admin: 03/13/18 13:36 Dose: 3 ml Folic Acid (Folic Acid) 1 mg PO DAILY [facility] Last Admin: 03/13/18 10:59 Dose: 1 mg Furosemide (Lasix) 40 mg IVP DAILY [facility] Last Admin: 03/13/18 11:01 Dose: 40 mg Gabapentin (Neurontin) 300 mg PO BID [facility] Last Admin: 03/13/18 10:59 Dose: 300 mg Ceftriaxone Sodium 1 gm/ (Sodium Chloride) 100 mls @ 100 mls/hr IVPB DAILY [facility] PRN Reason: Protocol Stop: 03/16/18 10:01 Last Admin: 03/13/18 11:04 Dose: 100 mls/hr Albumin Human (Albumin Human 25% (12.5 Gm/50 Ml)) 50 mls @ 100 mls/hr IV DAILY [facility] Stop: 03/15/18 10:29 Last Admin: 03/13/18 10:58 Dose: 100 mls/hr Lactulose (Enulose) 20 gm PO BID [facility] Last Admin: 03/13/18 11:03 Dose: Not Given Multivitamins (Hexavitamin) 1 tab PO DAILY [facility] Last Admin: 03/13/18 10:59 Dose: 1 tab Pantoprazole Sodium (Protonix Inj) 40 mg IVP Q12H [facility] Last Admin: 03/13/18 11:00 Dose: 40 mg Pentoxifylline (Pentoxil) 400 mg PO TID [facility] Last Admin: 03/13/18 13:19 Dose: 400 mg Phytonadione (Vitamin K Tab) 5 mg PO DAILY [facility] Last Admin: 03/13/18 11:00 Dose: 5 mg Prednisone (Prednisone Tab) 20 mg PO DAILY [facility] Last Admin: 03/13/18 10:59 Dose: 20 mg Propranolol HCl (Inderal) 5 mg PO TID [facility] Last Admin: 03/13/18 13:19 Dose: 5 mg Rifaximin (Xifaxan) 550 mg PO BID [facility] PRN Reason: Protocol Last Admin: 03/13/18 11:00 Dose: 550 mg Spironolactone (Aldactone) 25 mg PO DAILY [facility] Last Admin: 03/13/18 10:59 Dose: 25 mg Thiamine HCl (Vitamin B1 Tab) 100 mg PO DAILY [facility] Last Admin: 03/13/18 10:59 Dose: 100 mg - Labs Labs: 03/13/18 08:11 03/13/18 08:11 PT 43.1 SECONDS (9.7-12.2) H* 03/13/18 08:11 INR 3.9 03/13/18 08:11 APTT 50 SECONDS (21-34) H 03/11/18 22:09 Attending/Attestation - Attestation I have personally seen and examined this patient.: Yes I have fully participated in the care of the patient.: Yes I have reviewed all pertinent clinical information, including history, physical exam and plan: Yes Notes (Text): 03/13/18 14:04 36 year old female with h/o decompensated cirrhosis, GAVE admitted with fluid overload. Agree with diuresis, transfusion, and supportive measures. No overt GI bleeding.
[2018-03-13] MEDS: Propranolol 5 mg Tab PO SCH ×3 (11:06→17:56)
[2018-03-13] MEDS ORDERED: Potassium Chloride 20 mEq ER Tab PO SCH (17:30)
[2018-03-13] MEDS: Magnesium Sulfate 1 gm in D5W 1 GM/100 ML BAG IVPB SCH ×2 (17:40→17:55)
[2018-03-14] MEDS: Albuterol-Ipratrop 3 mg / 0.5 (3 ml) UD INH SCH ×4 (02:31→19:21)
[2018-03-14 07:08] LABS: BASO % 0.4 % (0.0-2.0); EOS # 0.1 K/uL (0.0-0.7); EOS % 2.8 % (0.0-4.0); HEMOGLOBIN 9.6 g/dL (11.0-16.0); LYMPH # 1.7 K/uL (1.0-4.3); LYMPH % 34.4 % (20.0-40.0); MEAN CELL VOLUME 100.1 fL (81.0-99.0); MEAN CORPUSCULAR HEMOGLOBIN 34.5 pg (27.0-31.0); MEAN CORPUSCULAR HGB CONC 34.5 g/dL (33.0-37.0); MEAN PLATELET VOLUME 9.9 fL (7.2-11.7); MONO # 0.3 K/uL (0.0-0.8); MONO % 6.9 % (0.0-10.0); NEUT # 2.8 K/uL (1.8-7.0); NEUT % 55.5 % (50.0-75.0); NRBC % 0.3 % (0.0-2.0); RBC 2.78 Mil/uL (3.80-5.20); RED CELL DISTRIBUTION WIDTH 25.7 % (11.5-14.5)
[2018-03-14 07:16] LABS: ALT/SGPT 36 U/L (9-52); AST/SGOT 57 U/L (14-36); BLOOD UREA NITROGEN 7 mg/dL (7-17); CALCIUM 7.6 mg/dl (8.6-10.4); GFR AFRICAN-AMERICAN > 60; GFR NON-AFRICAN AMERICAN > 60
[2018-03-14 07:25] LABS: ALB/GLOB RATIO 0.5 (1.0-2.1)
--- NOTE | 2018-03-14 07:38 | CP.PCM.PN ---
<Chery Arora - Last Filed: 03/14/18 13:41> Subjective - Date & Time of Evaluation Date of Evaluation: 03/14/18 Time of Evaluation: 07:00 - Subjective Subjective: PGY4 GI Follow-up Pt seen and examined bedside No overnight events 2 BM yesterday tolerating diet ROS: 12 point ROS conducted, neg other than above Objective - Vital Signs/Intake and Output Vital Signs (last 24 hours): Temp Pulse Resp BP Pulse Ox 98.2 F 77 20 110/65 100 03/14/18 00:00 03/14/18 00:00 03/14/18 00:00 03/14/18 00:00 03/14/18 00:00 Intake and Output: 03/14/18 03/14/18 06:59 18:59 Intake Total 200 Balance 200 - Medications Medications: Current Medications Albuterol/Ipratropium (Duoneb 3 Mg/0.5 Mg (3 Ml) Ud) 3 ml INH RQ6 [facility] Last Admin: 03/14/18 02:31 Dose: Not Given Folic Acid (Folic Acid) 1 mg PO DAILY [facility] Last Admin: 03/13/18 10:59 Dose: 1 mg Furosemide (Lasix) 40 mg IVP DAILY [facility] Last Admin: 03/13/18 11:01 Dose: 40 mg Gabapentin (Neurontin) 300 mg PO BID [facility] Last Admin: 03/13/18 17:44 Dose: 300 mg Ceftriaxone Sodium 1 gm/ (Sodium Chloride) 100 mls @ 100 mls/hr IVPB DAILY [facility] PRN Reason: Protocol Stop: 03/16/18 10:01 Last Admin: 03/13/18 11:04 Dose: 100 mls/hr Albumin Human (Albumin Human 25% (12.5 Gm/50 Ml)) 50 mls @ 100 mls/hr IV DAILY [facility] Stop: 03/15/18 10:29 Last Admin: 03/13/18 10:58 Dose: 100 mls/hr Lactulose (Enulose) 20 gm PO BID [facility] Last Admin: 03/13/18 17:56 Dose: Not Given Multivitamins (Hexavitamin) 1 tab PO DAILY [facility] Last Admin: 03/13/18 10:59 Dose: 1 tab Pantoprazole Sodium (Protonix Inj) 40 mg IVP Q12H [facility] Last Admin: 03/13/18 21:34 Dose: 40 mg Pentoxifylline (Pentoxil) 400 mg PO TID [facility] Last Admin: 03/13/18 17:41 Dose: 400 mg Phytonadione (Vitamin K Tab) 5 mg PO DAILY [facility] Last Admin: 03/13/18 11:00 Dose: 5 mg Prednisone (Prednisone Tab) 20 mg PO DAILY [facility] Last Admin: 03/13/18 10:59 Dose: 20 mg Propranolol HCl (Inderal) 5 mg PO TID [facility] Last Admin: 03/13/18 17:56 Dose: 5 mg Rifaximin (Xifaxan) 550 mg PO BID [facility] PRN Reason: Protocol Last Admin: 03/13/18 17:40 Dose: 550 mg Spironolactone (Aldactone) 25 mg PO DAILY [facility] Last Admin: 03/13/18 10:59 Dose: 25 mg Thiamine HCl (Vitamin B1 Tab) 100 mg PO DAILY [facility] Last Admin: 03/13/18 10:59 Dose: 100 mg - Labs Labs: 03/14/18 06:53 03/14/18 06:53 PT 43.1 SECONDS (9.7-12.2) H* 03/13/18 08:11 INR 3.9 03/13/18 08:11 APTT 50 SECONDS (21-34) H 03/11/18 22:09 - Constitutional Appears: Well, No Acute Distress - Head Exam Head Exam: ATRAUMATIC, NORMOCEPHALIC - Eye Exam Eye Exam: Scleral icterus - ENT Exam ENT Exam: Mucous Membranes Moist, Normal Exam - Neck Exam Neck Exam: Normal Inspection - Respiratory Exam Respiratory Exam: Clear to Ausculation Bilateral, NORMAL BREATHING PATTERN. absent: Rales, Rhonchi, Wheezes, Respiratory Distress, Stridor - Cardiovascular Exam Cardiovascular Exam: REGULAR RHYTHM, +S1, +S2 - GI/Abdominal Exam GI & Abdominal Exam: Soft, Normal Bowel Sounds. absent: Distended, Firm, Guarding, Rigid, Tenderness, Organomegaly - Extremities Exam Extremities Exam: Pedal Edema. absent: Joint Swelling - Neurological Exam Neurological Exam: Alert, Awake, Oriented x3 Additional comments: slight asterix - Skin Skin Exam: Dry, Intact, Normal Color, Warm Assessment and Plan - Assessment and Plan (Free Text) Assessment: Patient is a 36yo female with PMHx significant for decompensated EtOH cirrhosis c/b ascites, HE, jaundice and varices (on CT), ongoing EtOH abuse/dependence, alcoholic hepatitis, pancytopenia who presented to the ED for SOB. -Complications of cirrhosis: coagulopathy, pancytopenia, hyperbilirubinemia -Gastric antral vascular ectasia (GAVE) -Portal hypertensive gastropathy -Hepatic encephalopathy -Hx of Decompensated EtOH cirrhosis -Chronic Macrocytic anemia -EtOH abuse/dependence Plan: -Suspect anemia for bone marrow suppression 2/2 ETOH use and compliaction of cirrhosis -Still without overt blood loss -PT/INR elevated, waiting for today -s/p 1 unit PRBC, hgb stable -Goal HGB 7-8 -Increased Aldactone to 100mg daily, Lasix and aldactone need to be gradually titrated as an oupt -Continue Lactulose 20g BID - titrate to 2-3 BM/day, Rifaximin 500mg PO BID, Protonix 40mg PO QAMAC, lasix 40mg PO, and spironolactone 100mg at Home -EtOH withdrawal prevention -Daily MELD labs -Electrolyte replacement as needed -discussed alcohol avoidance, benefits of possible AA and rehab -pt need to follow-up with GI as an oupt and eventually [place] for liver eval *MELD-Na: waiting on todays labs Will D/W Dr. Rojas <Noe Rojas - Last Filed: 03/14/18 14:05> Objective - Vital Signs/Intake and Output Vital Signs (last 24 hours): Temp Pulse Resp BP Pulse Ox 97.9 F 72 20 132/75 98 03/14/18 07:59 03/14/18 07:59 03/14/18 07:59 03/14/18 09:51 03/14/18 07:59 Intake and Output: 03/14/18 03/14/18 06:59 18:59 Intake Total 200 Balance 200 - Medications Medications: Current Medications Albuterol/Ipratropium (Duoneb 3 Mg/0.5 Mg (3 Ml) Ud) 3 ml INH RQ6 [facility] Last Admin: 03/14/18 13:34 Dose: 3 ml Folic Acid (Folic Acid) 1 mg PO DAILY [facility] Last Admin: 03/14/18 09:51 Dose: 1 mg Furosemide (Lasix) 40 mg IVP DAILY [facility] Last Admin: 03/14/18 09:51 Dose: 40 mg Gabapentin (Neurontin) 300 mg PO BID [facility] Last Admin: 03/14/18 09:50 Dose: 300 mg Ceftriaxone Sodium 1 gm/ (Sodium Chloride) 100 mls @ 100 mls/hr IVPB DAILY [facility] PRN Reason: Protocol Stop: 03/16/18 10:01 Last Admin: 03/14/18 09:50 Dose: 100 mls/hr Albumin Human (Albumin Human 25% (12.5 Gm/50 Ml)) 50 mls @ 100 mls/hr IV DAILY [facility] Stop: 03/15/18 10:29 Last Admin: 03/14/18 09:49 Dose: 100 mls/hr Lactulose (Enulose) 20 gm PO BID [facility] Last Admin: 03/14/18 09:50 Dose: 20 gm Multivitamins (Hexavitamin) 1 tab PO DAILY [facility] Last Admin: 03/14/18 09:51 Dose: 1 tab Pentoxifylline (Pentoxil) 400 mg PO TID [facility] Last Admin: 03/14/18 13:12 Dose: 400 mg Phytonadione (Vitamin K Tab) 5 mg PO DAILY [facility] Last Admin: 03/14/18 09:51 Dose: 5 mg Prednisone (Prednisone Tab) 20 mg PO DAILY [facility] Last Admin: 03/14/18 09:51 Dose: 20 mg Propranolol HCl (Inderal) 5 mg PO TID [facility] Last Admin: 03/14/18 13:12 Dose: 5 mg Rifaximin (Xifaxan) 550 mg PO BID [facility] PRN Reason: Protocol Last Admin: 03/14/18 09:50 Dose: 550 mg Spironolactone (Aldactone) 100 mg PO DAILY [facility] Last Admin: 03/14/18 12:27 Dose: 100 mg Thiamine HCl (Vitamin B1 Tab) 100 mg PO DAILY [facility] Last Admin: 03/14/18 09:51 Dose: 100 mg - Labs Labs: 03/14/18 06:53 03/14/18 06:53 PT 36.7 SECONDS (9.7-12.2) H* D 03/14/18 10:46 INR 3.3 03/14/18 10:46 APTT 50 SECONDS (21-34) H 03/11/18 22:09 Attending/Attestation - Attestation I have personally seen and examined this patient.: Yes I have fully participated in the care of the patient.: Yes I have reviewed all pertinent clinical information, including history, physical exam and plan: Yes Notes (Text): 03/14/18 14:03 I have seen and examined patient with GI fellow. No acute events overnight, her breathing and cough have improved. She is seen resting in bed comfortably and denies abdominal pain, nausea, vomiting, fever/chills. Tolerating PO diet without difficulty. Review of vitals from today are normal. Decompensated ETOH cirrhosis Dyspnea, bronchitis - Low sodium diet as tolerated - H/H stable, s/p PRBC transfusion, continue to monitor - Continue with lactulose/xifaxan therapy for HE prevention - Continue with antibiotic therapy for acute bronchitis as per medical team - LFTs stable, continue to monitor INR s/p vitamin K - Continue with diuretic therapy, monitor electrolytes - No further planned GI interventions, will sign off case. Patient should follow up at [facility] liver clinic for ongoing management of chronic liver disease. ETOH cessation counseling provided to patient. Please reconsult as necessary, thank you.
[2018-03-14] MEDS: Propranolol 5 mg Tab PO SCH ×3 (09:51→17:57)
[2018-03-14] MEDS: Multiple Vitamins Tab PO SCH (09:51)
[2018-03-14] MEDS ORDERED: Pneumococcal 23-Valent Vaccine IM ONE (10:00)
[2018-03-14 11:16] LABS: INR 3.3
[2018-03-14 11:20] LABS: PROTHROMBIN TIME 36.7 SECONDS (9.7-12.2)
[2018-03-15] MEDS: Albuterol-Ipratrop 3 mg / 0.5 (3 ml) UD INH SCH ×3 (02:05→14:14)
[2018-03-15 08:36] VITALS: BP 134/72; PULSE 78; TEMP 98.5; O2SAT 97
[2018-03-15] MEDS: Propranolol 5 mg Tab PO SCH ×2 (09:45→13:03)
[2018-03-15] MEDS: Multiple Vitamins Tab PO SCH (09:45)
--- NOTE | 2018-03-15 12:55 | CP.PCM.PN ---
Subjective - Date & Time of Evaluation Date of Evaluation: 03/15/18 Time of Evaluation: 12:54 - Subjective Subjective: PT CLEARED FOR D/C HOME TODAY PER GI AND DR. WILKINS. PT VERBALIZES THAT SHE WILL CALL [facility] ON SUNDAY TO SCHEDULE AN APPT. ALL D/C PLAN, F/U, AND RX DISCUSSED AT LENGTH WITH THE PT. SHE WILL ALSO F/U WITH DR. LALA NEXT WEEK IN THE OFFICE. NO FURTHER ORDERS. -FOLLOW UP WITH DR. WILKINS IN THE OFFICE WITHIN 1 WEEK---CALL FOR APPT TIME. -FOLLOW UP WITH DR RAMIRES AND THE STOMACH DOCTORS IN THEIR OFFICE--THEY ARE RECOMMENDING THAT YOU FOLLOW UP WITH [facility] IN [place] FOR FURTHER MANAGEMENT OF LIVER DISEASE. CALL [facility] AT [phone] TO MAKE AN APPT. -CONTINUE ALL MEDICATIONS AT HOME USUAL. -YOU HAVE BEEN PRESCRIBED NEW MEDICATIONS, TAKE THEM ALL EXACTLY DIRECTED. -REFRAIN FROM ALCOHOL USE. -IF YOU HAVE ANY FURTHER CONCERNS OR QUESTIONS, CALL DR. WILKINS'S OFFICE. Objective - Vital Signs/Intake and Output Vital Signs (last 24 hours): Temp Pulse Resp BP Pulse Ox 98.5 F 78 20 134/72 97 03/15/18 08:00 03/15/18 08:00 03/15/18 08:00 03/15/18 09:46 03/15/18 08:00 Intake and Output: 03/15/18 03/15/18 06:59 18:59 Intake Total 630 Balance 630 - Medications Medications: Current Medications Albuterol/Ipratropium (Duoneb 3 Mg/0.5 Mg (3 Ml) Ud) 3 ml INH RQ6 [facility] Last Admin: 03/15/18 07:50 Dose: 3 ml Folic Acid (Folic Acid) 1 mg PO DAILY [facility] Last Admin: 03/15/18 09:45 Dose: 1 mg Furosemide (Lasix) 40 mg IVP DAILY [facility] Last Admin: 03/15/18 09:46 Dose: 40 mg Gabapentin (Neurontin) 300 mg PO BID [facility] Last Admin: 03/15/18 09:45 Dose: 300 mg Lactulose (Enulose) 20 gm PO BID [facility] Last Admin: 03/15/18 09:46 Dose: 20 gm Multivitamins (Hexavitamin) 1 tab PO DAILY [facility] Last Admin: 03/15/18 09:45 Dose: 1 tab Pentoxifylline (Pentoxil) 400 mg PO TID [facility] Last Admin: 03/15/18 09:45 Dose: 400 mg Phytonadione (Vitamin K Tab) 5 mg PO DAILY [facility] Last Admin: 03/15/18 09:46 Dose: 5 mg Prednisone (Prednisone Tab) 20 mg PO DAILY [facility] Last Admin: 03/15/18 09:46 Dose: 20 mg Propranolol HCl (Inderal) 5 mg PO TID [facility] Last Admin: 03/15/18 09:45 Dose: 5 mg Spironolactone (Aldactone) 100 mg PO DAILY [facility] Last Admin: 03/15/18 09:46 Dose: 100 mg Thiamine HCl (Vitamin B1 Tab) 100 mg PO DAILY [facility] Last Admin: 03/15/18 09:45 Dose: 100 mg - Labs Labs: 03/14/18 06:53 03/14/18 06:53 PT 36.7 SECONDS (9.7-12.2) H* D 03/14/18 10:46 INR 3.3 03/14/18 10:46 APTT 50 SECONDS (21-34) H 03/11/18 22:09
== END 2018-03-15 14:50 | disposition home or self-care (01) | DRG 588 ==
LOC: C.ER 17:51 → C.9E 21:29 → C.3T 21:29
PROVIDERS: ADMIT Internal Medicine; ATTEND Internal Medicine
PROC: 30233N1 Transfusion of Nonautologous Red Blood Cells into Peripheral Vein, Percutaneous Approach (ICD-10-PCS; principal; 2018-03-12)
DX: J20.9 Acute bronchitis, unspecified (principal); K72.90 Hepatic failure, unspecified without coma; K70.31 Alcoholic cirrhosis of liver with ascites; D61.818 Other pancytopenia; K70.11 Alcoholic hepatitis with ascites; F10.220 Alcohol dependence with intoxication, uncomplicated; K76.6 Portal hypertension; K31.89 Other diseases of stomach and duodenum; I85.10 Secondary esophageal varices without bleeding; D68.9 Coagulation defect, unspecified; J45.909 Unspecified asthma, uncomplicated; Z87.891 Personal history of nicotine dependence